=== PATIENT | male | born 1970 | race Caucasian/White ===

== ENCOUNTER 2016-07-28 15:38 | Observation (INO) | payer OTHER ==
[~2016-07-28] VITALS: Ht 167.6 cm; Wt 70.5 kg
[~2016-07-28 15:38] MED LIST: ASPI81CH2 PO; CARV25TA2 PO; CLOP1TAB5 PO; DOCU-94 PO; EZET10TA47 PO; FURO40TA3 PO; GLC5 PO; LSN20 PO; METF500T PO; NVLG; ONDA8TAB62 SL; PANT40TA PO; SERT50TA PO; SPIR25TA PO
[2016-07-28 17:20] VITALS: O2SAT 96
[2016-07-28 17:26] VITALS: BP 169/85; PULSE 88; TEMP 37; O2SAT 96; Ht 167.6 cm; Wt 70.5 kg
[2016-07-28] MEDS ORDERED: ONDANSETRON INJ 2 MG/ML 2 ML VIAL IV PRN ×2 (19:30→21:15)
[2016-07-28] MEDS ORDERED: ACETAMINOPHEN 325 MG TAB PO PRN ×2 (19:30→21:30)
[2016-07-28] MEDS ORDERED: INSUINJ5 SC (19:41)
[2016-07-28] MEDS ORDERED: URSO300C4 PO (19:41)
[2016-07-28] MEDS ORDERED: DRGTP12 EXT (19:41)
[2016-07-28] MEDS ORDERED: METO1TAB54 PO (19:41)
--- NOTE | 2016-07-28 20:33 | History and Physical ---
History & Physical Date & Time of Service: Jul 28, 2016 at 19:42 Chief Complaint: Acute On Chronic Cholecystitis Primary Care Physician: Tae Napier M.D. History of Present Illness Source: patient This is a 45 y/o male with PMHx of CAD s/p CABG, CVA on Plavix, Insulin- Dependent DM 2, HTN, Dyslipidemia and other problems as listed below is seen as a direct transfer from [facility] for intractable nausea and vomiting. Pt reports that last night he developed nausea and vomiting. He estimates he has vomited > 10 times today. He tried taking Zofran at home but could not keep it down. Sxs are assoc with lumber back pain. Pt denies any abdominal pain. Pt was seen today in the ED at [facility]. Labs reviewed were unremarkable. CT abd/pelvis + bilateral pleural effusions (stable from 07/04/16) and cholelithiasis. Pt has a history of intermittent nausea and vomiting over the past year. There is a suspected diagnosis of gastroparesis however, per records, patient refused a gastric emptying study. Patient also has symptomatic cholelithiasis. He was scheduled for cholecystectomy in the fall however the procedure was postponed due to acute CVA in April 2016. Pt has been on ASA and Plavix. He reports that his database specialist has cleared him for surgery however his pre-op neuro apt was scheduled for this . The ED tried to transfer the patient to [facility] as his database specialist and neurologist are there. There were no beds available until tomorrow therefore they opted to send patient here for admission as his paper sorter and counter, Dr. Alvarado, is here at [facility]. Pt denies fever/chills, chest pain, palpitations, SOB, wheezing, abd pain, bowel or bladder issues, LE edema ,calf pain, lightheadedness/dizziness. Past Medical/Surgical History Medical Problems: (1) CAD (coronary artery disease) Status: Chronic (2) CHF (congestive heart failure) Status: Chronic (3) CVA (cerebral vascular accident) Status: Chronic (4) Depression Status: Chronic (5) HLD (hyperlipidemia) Status: Chronic (6) HTN (hypertension) Status: Chronic (7) IDDM (insulin dependent diabetes mellitus) Status: Chronic (8) PFO (patent foramen ovale) Status: Chronic Surgical Problems: (1) Hx of CABG Status: Chronic Family History Diabetes mellitus FH: heart disease Social History Smoking Status: Never Smoker Alcohol Use: none Drug Use: none Marital Status: single Housing status: lives with family Occupational Status: unemployed Allergies Coded Allergies: Morphine (Verified Allergy, Unknown, DELIRIUM, 05/16/16) Statins (Unverified Allergy, Unknown, GI SYMPTOMS, 05/16/16) Elevated liver enzymes Home Medications Scheduled Aspirin (Aspirin), 1 TAB PO DAILY Carvedilol (Coreg), 1 TAB PO BID Clopidogrel Bisulfate (Plavix), 1 TAB PO DAILY Ezetimibe (Zetia), 1 TAB PO DAILY Fentanyl (Fentanyl), 12 MCG EXT UD Furosemide (Lasix), 1 TAB PO DAILY Glipizide (Glipizide), 5 MG PO DAILY Insulin Glulisine (Apidra), 6 UNITS SC UD Insulin Glulisine (Apidra), 5 UNITS SC UD Lisinopril (Lisinopril), 40 MG PO DAILY Metoclopramide Hcl (Reglan), 5 MG PO ACHS Pantoprazole Sodium (Protonix), 40 MG PO DAILY Sertraline (Zoloft), 1 TAB PO DAILY Spironolactone (Aldactone), 1 TAB PO DAILY Ursodiol (Actigall), 300 MG PO BID Scheduled PRN Docusate Sodium (Colace), 1 CAP PO BID PRN for Constipation Ondansetron Odt (Zofran Odt), 8 MG SL Q6H PRN for Nausea Review of Systems Constitutional: + fatigue, No chills, No fever, No sweats, No weakness Eyes: No worsening of vision ENT: No hearing loss Respiratory: No cough, No shortness of breath Cardiovascular: No chest pain, No claudication, No edema, No palpitations Abdomen: + nausea, + vomiting, No constipation, No diarrhea, No pain Musculoskeletal: + problem reported (back pain ), No calf pain, No swelling Genitourinary - Male: No dysuria Neurologic: No weakness Psychiatric: No depression symptoms Endocrine: + fatigue Hematologic / Lymphatic: No abnormal bleeding/bruising Integumentary: No new/changing skin lesions Physical Exam Vital Signs Date Time Temp Pulse Resp B/P Pulse Ox O2 Delivery O2 Flow Rate FiO2 07/28/16 17:26 37.0 88 16 169/85 96 Room Air General Appearance: WD/WN, no apparent distress, + pertinent finding (Pt is laying in bed with sister at bedside ) Head: normocephalic, atraumatic Eyes: normal inspection ENT: hearing grossly normal Neck: supple Respiratory/Chest: chest non-tender, lungs clear, normal breath sounds, no respiratory distress Cardiovascular: regular rate, rhythm, no edema, no murmur Abdomen/GI: normal bowel sounds, non tender, soft Back: normal inspection Extremities/Musculoskelatal: normal inspection, no calf tenderness, no pedal edema Neurologic/Psych: alert, normal mood/affect, oriented x 3 Skin: normal color, warm/dry Impression Assessment and Plan INTRACTABLE NAUSEA/VOMITING pt presented as a direct admit from [facility] with intractable N/V assoc with lumbar back pain -admit to med/surg -h/o multiple admissions with same complaint; ? if N/V 2* gastroparesis vs. cholelithiasis -CT abd/pelvis from [facility] + stable bilateral pleural effusions and cholelithiasis -obtain bloodwork -gentle IVF and Zofran PRN -clear liquid diet -GI consult for further recommendations -monitor CHRONIC LUMBAR BACK PAIN -currently c/o 5/10 pain -on fentanyl patch at home -start PRN analgesics in hospital INSULIN-DEPENDENT DM 2 -last A1C 8.6 -clear liquid diet -hold po antidiabetic agents -SSI coverage -BSG AC HS CHRONIC SYSTOLIC CHF -Unable to access recent echo -appears euvolemic -check CXR to r/o acute CHF -hold Lasix and Aldactone for now -Try clear liquid diet HTN -stable -cont Coreg, lisinopril -hold Lasix and Aldactone for now -monitor DYSLIPIDEMIA -cont Zetia CAD S/P CABG -stable -continue ASA, Plavix, Coreg and lisinopril -pt currently denies anginal sxs H/O CVA -cont Aspirin/Plavix -consult neuro regarding possible procedure DEPRESSION -cont Zoloft H/O PFO -per record DVT PROPHYLAXIS: -subq heparin CODE STATUS -FULL CODE DISPO -Patient seen in collaboration with Dr. Bay. Please see his addendum for further details. Thanks! Advanced Directives Existing Living Will: No Existing Power of Rack Puncher: No VTE Prophylaxis VTE Risk Assessment Done? Y/N: Yes Risk Level: Moderate Assessment/Plan IM ATTENDING : Patient seen and examined. Preceding documentation by Ms. Olga PA-C, reviewed In addition, gallbladder ultrasound showed cholelithiasis w/ sludge; negative for cholecystitis. FINAL ASSESSMENT AND PLAN as follows: 1. Recurrent nausea and vomiting, abdominal/back pain symptoms. Differentials include : DM gastroparesis biliary colic cyclic vomiting syndrome 2. troponinmia 2 to hypertensive urgency, abn kidney function 3. Chronic anemia, hemoglobin better than baseline. 4. Chronic diastolic heart failure, hx ischemic cardiomyopathy hx CAD sp CABG improved EF of 50% on last nuclear stress test 2015. 5. Hx recent cerebrovascular accident, on antiplatelet treatment. 6. DM2, insulin requiring, suboptimal control as of recent HgA1c. Observation. GMF antiemetics, analgesics. GI consult for recurrent nausea and vomiting sx (Px known to Dr. Alvarado) Monitor creatinine response to IVF, hold ACEI, diuretics until creatinine at baseline Basal insulin adjusted for n.p.o. sips state for now, ISS BG goal 140-180 DVT prophylaxis, heparin subQ. Full code.
[2016-07-28] MEDS ORDERED: TRAMADOL HCL 50 MG TAB PO PRN (21:15)
[2016-07-28] MEDS ORDERED: CARVEDILOL 25 MG TAB PO ONE (21:28)
[2016-07-28] MEDS: HYDROmorphone INJ 1 MG/ML SYR IV PRN (21:29)
[2016-07-28] MEDS ORDERED: LORAZEPAM 2 MG/ML 1 ML VIAL IV PRN (21:30)
[2016-07-28] MEDS ORDERED: DEXTROSE 50% 50 ML SYR IV PRN (21:30)
[2016-07-28] MEDS ORDERED: SODIUM CHLORIDE 0.9% 1000ML 1,000 ML IV SCH (21:30)
[2016-07-28] MEDS ORDERED: GLUCOSE 40% GEL 15 GM TUBE PO PRN (21:30)
[2016-07-28] MEDS ORDERED: GLUCAGON FOR INJ 1 MG VIAL SQ PRN (21:30)
[2016-07-28] MEDS ORDERED: GLUCOSE 10 TABS/TUBE PO PRN (21:30)
[2016-07-28] MEDS ORDERED: LORAZEPAM INJ 0.5 MG in SYRINGE 0.75 ML IV PRN (21:30)
[2016-07-28] MEDS: PROMETHAZINE HCL INJ 12.5 MG in SODIUM CHLORIDE 0.9% 50ML 50 ML IV PRN (21:44)
[2016-07-28] MEDS: HEPARIN SOD 5000 UNIT/0.5 ML CARP SQ SCH (21:51)
[2016-07-28 22:50] VITALS: BP 156/73; PULSE 91; TEMP 36.7; O2SAT 95
[2016-07-28 23:00] LABS: PARTIAL THROMBOPLASTIN RATIO 0.9
[2016-07-28] MEDS ORDERED: IV FLUIDS COMPLETED PRN (23:00)
[2016-07-28 23:07] LABS: URINE APPEARANCE CLEAR (CLEAR); URINE BILIRUBIN NEG (NEG); URINE COLOR YELLOW; URINE EPITHELIAL CELL AUTO >30 /lpf (0-5); URINE NITRITE NEG (NEG); URINE PH 5.5 (4.5-7.5); URINE SPECIFIC GRAVITY > 1.045 (1.000-1.030); UROBILINOGEN NEG (NEG); ZZUR CULT IF INDIC CLEAN CATCH NO
[2016-07-28 23:09] LABS: MANUAL MICROSCOPIC REQUIRED? NO; REVIEW REQ? YES
[2016-07-28 23:20] LABS: BUN/CREATININE RATIO 18.5 (10-20); CALCIUM 8.5 mg/dl (8.5-10.1); CREATININE 1.6 mg/dl (0.60-1.40); POTASSIUM 4.3 mmol/L (3.5-5.1)
[2016-07-28] MEDS ORDERED: NURSING DECISION MEDICATION ORDER SCH (23:30)
[2016-07-28 23:43] LABS: ALB/GLOB RATIO 0.7 (0.9-2)
[2016-07-28] MEDS ORDERED: INSULIN GLARGINE PER UNIT 5 UNITS in SYRINGE 0 ML SC ONE (23:45)
[2016-07-28] MEDS ORDERED: SODIUM CHLORIDE 0.45% 1000ML 1,000 ML IV SCH (23:45)
[2016-07-28] MEDS: INSULIN ASPART 100 UNITS/ML 3 ML PEN SC SCH (23:49)
[2016-07-29] VITALS (7 sets, daily range): BP systolic 95–193; BP diastolic 58–94; PULSE 57–83; TEMP 36.5–37.3; O2SAT 93–96
[2016-07-29] MEDS ORDERED: INSULIN GLARGINE SOLOSTAR 100 UNITS/ML 3 ML PEN SC ONE
[2016-07-29 03:34] LABS: BASO % 0.3 %; BASO ABS # 0.03 K/uL (0-0.2); COMPLETE YES; HEMATOCRIT 29.8 % (42-52); IG% 0.2 %; LYMPH % 19.7 %; MEAN CELL VOLUME 86.4 fL (80-100); MEAN CORPUSCULAR HEMOGLOBIN 27.5 pg (25-34); MEAN CORPUSCULAR HGB CONC 31.9 g/dl (32-36); MEAN PLATELET VOLUME 11.4 fL (7.4-10.4); MONO % 5.7 %; NEUT % 74.1 %; PLATELET COUNT 276 K/uL (130-400); RED BLOOD COUNT 3.45 M/uL (4.7-6.1); WHITE BLOOD COUNT 10.16 K/uL (4.8-10.8)
[2016-07-29 03:55] LABS: BUN/CREATININE RATIO 17.5 (10-20); CALCIUM 8.1 mg/dl (8.5-10.1); CREATININE 1.8 mg/dl (0.60-1.40); POTASSIUM 4.3 mmol/L (3.5-5.1)
--- NOTE | 2016-07-29 04:38 | HISTORY & PHYSICAL EXAMINATION ---
DATE OF ADMISSION: 07/28/2016 IM ATTENDING : Patient seen and examined. Preceding documentation by Ms. Olga PA-C, reviewed In addition, gallbladder ultrasound showed cholelithiasis w/ sludge; negative for cholecystitis. FINAL ASSESSMENT AND PLAN as follows: 1. Recurrent nausea and vomiting, abdominal/back pain symptoms. Differentials include : DM gastroparesis biliary colic cyclic vomiting syndrome 2. troponinmia 2 to hypertensive urgency, abn kidney function 3. Chronic anemia, hemoglobin better than baseline. 4. Chronic diastolic heart failure, hx ischemic cardiomyopathy hx CAD sp CABG improved EF of 50% on last nuclear stress test 2015. 5. Hx recent cerebrovascular accident, on antiplatelet treatment. 6. DM2, insulin requiring, suboptimal control as of recent HgA1c. Observation. GMF antiemetics, analgesics. GI consult for recurrent nausea and vomiting sx (Px known to Dr. Alvarado) Monitor creatinine response to IVF, hold ACEI, diuretics until creatinine at baseline Basal insulin adjusted for n.p.o. sips state for now, ISS BG goal 140-180 DVT prophylaxis, heparin subQ. Full code. MTDD
[2016-07-29] MEDS: SODIUM CHLORIDE 0.45% 1000ML 1,000 ML IV SCH ×2 (04:39→18:11)
[2016-07-29] MEDS: HEPARIN SOD 5000 UNIT/0.5 ML CARP SQ SCH ×3 (05:58→21:47)
[2016-07-29] MEDS: INSULIN ASPART 100 UNITS/ML 3 ML PEN SC SCH ×4 (06:00→21:00)
--- NOTE | 2016-07-29 07:17 | DIAGNOSTIC IMAGING REPORT ---
ABDOMINAL ULTRASOUND, RIGHT UPPER QUADRANT HISTORY: Generalized abdominal pain.. COMPARISON: None. FINDINGS: Pancreas: The pancreatic head and tail are obscured by overlying bowel gas. The remaining portions of the pancreas are within normal limits. Liver: The liver is echogenic consistent with fatty change. Gallbladder: The gallbladder is filled with sludge and multiple tiny gallstones. No gallbladder wall thickening. CBD: 3 mm. Right kidney: Echogenic. No hydronephrosis. IMPRESSION: The gallbladder is filled with sludge and multiple tiny stones. No gallbladder wall thickening. Electronically signed by: Vishal Roberts M.D. 07/29/2016 7:16 AM Dictated Date/Time: 07/29/2016 7:14 AM
[2016-07-29] MEDS: PROMETHAZINE HCL INJ 12.5 MG in SODIUM CHLORIDE 0.9% 50ML 50 ML IV PRN (07:20)
[2016-07-29] MEDS ORDERED: INSULIN ASPART 100 UNITS/ML 3 ML PEN SC SCH (08:00)
[2016-07-29] MEDS: HYDROmorphone INJ 1 MG/ML SYR IV PRN ×2 (08:01→12:10)
[2016-07-29] MEDS: METOCLOPRAMIDE HCL 5 MG TAB PO SCH ×4 (08:40→21:36)
[2016-07-29] MEDS ORDERED: INSULIN GLARGINE PER UNIT 5 UNITS in SYRINGE 0 ML SC SCH (09:00)
[2016-07-29] MEDS: INSULIN GLARGINE SOLOSTAR 100 UNITS/ML 3 ML PEN SC SCH ×2 (10:23→21:47)
[2016-07-29] MEDS: PANTOprazole SOD 40 MG TAB PO SCH (10:24)
[2016-07-29] MEDS: EZETIMIBE 10MG TAB PO SCH (10:27)
[2016-07-29] MEDS: CARVEDILOL 25 MG TAB PO SCH ×2 (10:27→21:36)
[2016-07-29] MEDS: URSODIOL 300 MG CAP PO SCH ×2 (10:27→21:35)
[2016-07-29] MEDS: SERTRALINE HCL 50 MG TAB PO SCH (10:27)
[2016-07-29] MEDS: CLOPIDOGREL BISULFATE 75 MG TAB PO SCH (11:24)
[2016-07-29] MEDS: ASPIRIN 81 MG ECTAB PO SCH (11:24)
--- NOTE | 2016-07-29 12:20 | Gastrointestinal Consultation ---
Gastrointestinal Consultation Date of Consultation: Jul 29, 2016 Attending Physician: Dr. Dejesus Consulting Physician: Dr. Puri Reason for Consultation: recurrent nausea and vomiting History of Present Illness Patient is a 45 year old male with longstanding hx of uncontrolled DM2, HTN, CAD s/p CABG, recent CVA 04/2016 on ASA/Plavix, HTN, hx PFO and symptomatic cholelithiasis with one year hx of nausea and vomiting requiring several hospital admissions. He follows with Dr. Alvarado and has numerous GI procedures in the past. He was to have cholecystectomy and elective EUS but this was complicated by his recent stroke. His neurologist/construction millwright are at [facility]. He was a direct transfer to this facility from [facility] due to intractable N/V. Past GI work up noted for mild gastritis, normal gastric emptying study and cholelithiasis. Neurology has been consulted this admission to consider clearance for cholecystectomy. As far as his N/V, pt states it can be 5-10 times per day, clear to brown bilious material. No hematemesis. States it is not associated with eating or drinking, can occur anytime. Denies narcotic use. Bowels regular at baseline. Using PO Zofran at home and Reglan 5mg ACHS. Pt denies abdominal pain or distention. US this admission confirms sludge and tiny gallstones, no wall thickening. Labs show slightly worsening renal function and elevated troponin thought to be secondary to hypertensive urgency/worsening renal function. Past Medical/Surgical History Past Medical History: CAD CHF CVA on ASA/Plavix Depression Hyperlipidemia DM2- insulin dependent PFO Past Surgical History: Hx CABG endoscopic procedures - refer to HPI Family History Diabetes mellitus FH: heart disease Social History Smoking Status: Never Smoker Alcohol Use: none Drug Use: none Marital Status: single Housing Status: lives with family Occupation Status: unemployed Allergies Coded Allergies: Morphine (Verified Allergy, Unknown, DELIRIUM, 05/16/16) Statins (Unverified Allergy, Unknown, GI SYMPTOMS, 05/16/16) Elevated liver enzymes Current Medications Home Meds and Scripts Medications Dose Route/Sig Max Daily Dose Days Date Category Dose Instructions Actigall (Ursodiol) 300 Mg Cap 300 Mg PO BID 07/28/16 Reported Apidra (Insulin Glulisine) 100 Unit/Ml Inj 5 Units SC UD 07/28/16 Reported Take 5 units SC before lunch Apidra (Insulin Glulisine) 100 Unit/Ml Inj 6 Units SC UD 07/28/16 Reported 6 units SC before breakfast and supper Reglan (Metoclopramide Hcl) 5 Mg Tab 5 Mg PO ACHS 07/28/16 Reported Fentanyl 12 Mcg Tdsy 12 Mcg EXT UD 07/28/16 Reported 1 patch topically q 72 hours Zofran Odt (Ondansetron HCl) 8 Mg Soltab 8 Mg SL Q6H PRN 30 05/17/16 Rx Aldactone (Spironolactone) 25 Mg Tab 1 Tab PO DAILY 90 05/16/16 Reported Zoloft (Sertraline HCl) 50 Mg Tab 1 Tab PO DAILY 30 05/16/16 Reported Protonix (Pantoprazole Sodium) 40 Mg Tab 40 Mg PO DAILY 05/16/16 Reported Lisinopril 20 Mg Tab 40 Mg PO DAILY 05/16/16 Reported Glipizide 5 Mg Tab 5 Mg PO DAILY 05/16/16 Reported Lasix (Furosemide) 40 Mg Tab 1 Tab PO DAILY 90 05/16/16 Reported Zetia (Ezetimibe) 10 Mg Tab 1 Tab PO DAILY 30 05/16/16 Reported Colace (Docusate Sodium) 100 Mg Cap 1 Cap PO BID PRN 15 05/16/16 Reported Plavix (Clopidogrel Bisulfate) 75 Mg Tab 1 Tab PO DAILY 05/16/16 Reported Coreg (Carvedilol) 25 Mg Tab 1 Tab PO BID 90 05/16/16 Reported Aspirin 81 Mg Chw 1 Tab PO DAILY 30 05/16/16 Reported Review of Systems Constitutional: No chills, No fever Eyes: No problem reported ENT: No problem reported Respiratory: No cough, No shortness of breath Cardiac: No chest pain, No edema Abdomen: + nausea, + vomiting, No GI bleeding, No jaundice (see HPI), No pain Musculoskeletal: + joint pain (chronic back pain) Male : No dysuria Neuro: + see HPI (recent CVA per HPI ) Psych: + depression symptoms (hx of depression, controlled on meds) Heme: No abnormal bleeding/bruising Endo: No problem reported Skin: No problem reported Physical Exam Date Time Temp Pulse Resp B/P Pulse Ox O2 Delivery O2 Flow Rate FiO2 07/29/16 10:26 76 176/94 07/29/16 08:22 83 156/74 07/29/16 07:47 37.3 83 18 193/83 93 Room Air 07/29/16 07:15 Room Air 07/28/16 23:59 Room Air 07/28/16 22:50 36.7 91 16 156/73 95 Room Air 07/28/16 17:26 37.0 88 16 169/85 96 Room Air 07/28/16 17:20 96 Room Air General Appearance: WD/WN (appears uncomfortable due to nausea, no pain, NAD) Eyes: normal inspection ENT: hearing grossly normal Neck: supple Respiratory/Chest: lungs clear, normal breath sounds, no respiratory distress Cardiovascular: regular rate, rhythm, no edema Abdomen: normal bowel sounds, non tender, soft (nondistended) Extremities: non-tender, no pedal edema Neurologic/Psych: alert, oriented x 3 Skin: normal color Laboratory Results Last 24 Hours Test 07/28/16 22:44 07/28/16 22:55 07/28/16 23:42 07/29/16 03:05 Activated Partial Thromboplast Time 24.5 SECONDS Partial Thromboplastin Ratio 0.9 Sodium Level 145 mmol/L 146 mmol/L Potassium Level 4.3 mmol/L 4.3 mmol/L Chloride Level 110 mmol/L 111 mmol/L Carbon Dioxide Level 24 mmol/L 27 mmol/L Anion Gap 11.0 mmol/L 8.0 mmol/L Blood Urea Nitrogen 30 mg/dl 32 mg/dl Creatinine 1.60 mg/dl 1.80 mg/dl Est Creatinine Clear Calc Drug Dose 52.6 ml/min 46.7 ml/min Estimated GFR () 59.4 51.5 Estimated GFR (Non- 51.3 44.5 BUN/Creatinine Ratio 18.5 17.5 Random Glucose 180 mg/dl 157 mg/dl Calcium Level 8.5 mg/dl 8.1 mg/dl Magnesium Level 2.0 mg/dl Total Bilirubin 0.3 mg/dl Aspartate Amino Transf (AST/SGOT) 26 U/L Alanine Aminotransferase (ALT/SGPT) 20 U/L Alkaline Phosphatase 79 U/L Troponin I 0.167 ng/ml 0.259 ng/ml Total Protein 6.0 gm/dl Albumin 2.5 gm/dl Globulin 3.5 gm/dl Albumin/Globulin Ratio 0.7 Thyroid Stimulating Hormone (TSH) 2.000 uIu/ml Urine Color YELLOW Urine Appearance CLEAR Urine pH 5.5 Urine Specific [place] > 1.045 Urine Protein 4+ Urine Glucose (UA) 2+ Urine Ketones TRACE Urine Occult Blood 2+ Urine Nitrite NEG Urine Bilirubin NEG Urine Urobilinogen NEG Urine Leukocyte Esterase NEG Urine WBC (Auto) 1-5 /hpf Urine RBC (Auto) 10-30 /hpf Urine Hyaline Casts (Auto) 5-10 /lpf Urine Epithelial Cells (Auto) >30 /lpf Urine Bacteria (Auto) NEG Urine Renal Epithelial Cells 0-5 /lpf Urine Pathogenic Casts /lpf Bedside Glucose 165 mg/dl White Blood Count 10.16 K/uL Red Blood Count 3.45 M/uL Hemoglobin 9.5 g/dL Hematocrit 29.8 % Mean Corpuscular Volume 86.4 fL Mean Corpuscular Hemoglobin 27.5 pg Mean Corpuscular Hemoglobin Concent 31.9 g/dl Platelet Count 276 K/uL Mean Platelet Volume 11.4 fL Neutrophils (%) (Auto) 74.1 % Lymphocytes (%) (Auto) 19.7 % Monocytes (%) (Auto) 5.7 % Eosinophils (%) (Auto) 0.0 % Basophils (%) (Auto) 0.3 % Neutrophils # (Auto) 7.53 K/uL Lymphocytes # (Auto) 2.00 K/uL Monocytes # (Auto) 0.58 K/uL Eosinophils # (Auto) 0.00 K/uL Basophils # (Auto) 0.03 K/uL RDW Standard Deviation 46.9 fL RDW Coefficient of Variation 14.8 % Immature Granulocyte % (Auto) 0.2 % Immature Granulocyte # (Auto) 0.02 K/uL Test 07/29/16 05:58 07/29/16 07:55 Bedside Glucose 155 mg/dl Sodium Level 144 mmol/L Troponin I 0.271 ng/ml Impression Patient is a 45 year old male with complex medical hx detailed above most recently noted for CVA with one yr hx of N/V and symptomatic cholelithiasis Plan Unfortunately he is just now almost 3 months from his CVA. Neurology has been consulted to consider clearance for cholecystectomy Recurrent N/V - likely component of gastroparesis despite normal GES in past; Cholelithiasis could also be contributing. No etiology noted on last EGD. Would not repeat his gastric emptying study as he remains on reglan. GI recommendations: continue Reglan 5mg ACHS continue Zofran, has IV ordered here Continue PPI Unfortunately not alot to offer. Once pt is cleared from cardiac and neuro standpoint, his plans are for cholecystectomy. If this does not resolve his issues, Dr. Alvarado has suggested elective EUS previously. ATTESTATION: I have performed a history and physical examination of this patient and reviewed the electronic record. Specifically, on physical examination patient appears comfortable without abdominal tenderness. He appears to have poorly controlled diabetic gastroparesis. I have discussed the case with Trudy Dimas PA-C. The above note reflects my findings, conclusions, and recommendations. Victorino Puri MD
[2016-07-29] MEDS: ONDANSETRON INJ 2 MG/ML 2 ML VIAL IV PRN (12:23)
[2016-07-29] MEDS ORDERED: NURSING VERBAL MED ORDER ONE (15:00)
--- NOTE | 2016-07-29 15:03 | Progress Note ---
Medicine Progress Note Date & Time of Visit: Jul 29, 2016 at 14:40. Subjective Pt was seen and examined sitting in bed with no distress Pt said that he was transfer to [facility] to get neuro clearance for cholecystectomy pt said that his abdominal pain and vomiting improved he is complaint of back pain denies any chest pain, palpitation, dizziness and SOB Objective Last 8 Hrs Date Time Temp Pulse Resp B/P Pulse Ox O2 Delivery O2 Flow Rate FiO2 07/29/16 12:25 36.7 73 18 158/81 96 Room Air 07/29/16 10:26 76 176/94 07/29/16 08:22 83 156/74 07/29/16 07:47 37.3 83 18 193/83 93 Room Air 07/29/16 07:15 Room Air Physical Exam: General- No acute distress Head- atraumatic Eyes- PERRL, EOMI ENT- oropharynx clear Neck- supple, no JVD Lungs- clear to auscultation and percussion Heart- regular rhythm Abdomen- normal bowel sounds, soft Extremities- no calf tenderness Neuro- alert, oriented x 3; PERRL, EOMI; no facial palsy; no dysarthria Skin- warm & dry Laboratory Results: Last 24 Hours Test 07/28/16 22:44 07/28/16 22:55 07/28/16 23:42 07/29/16 03:05 Activated Partial Thromboplast Time 24.5 SECONDS Partial Thromboplastin Ratio 0.9 Sodium Level 145 mmol/L 146 mmol/L Potassium Level 4.3 mmol/L 4.3 mmol/L Chloride Level 110 mmol/L 111 mmol/L Carbon Dioxide Level 24 mmol/L 27 mmol/L Anion Gap 11.0 mmol/L 8.0 mmol/L Blood Urea Nitrogen 30 mg/dl 32 mg/dl Creatinine 1.60 mg/dl 1.80 mg/dl Est Creatinine Clear Calc Drug Dose 52.6 ml/min 46.7 ml/min Estimated GFR () 59.4 51.5 Estimated GFR (Non- 51.3 44.5 BUN/Creatinine Ratio 18.5 17.5 Random Glucose 180 mg/dl 157 mg/dl Calcium Level 8.5 mg/dl 8.1 mg/dl Magnesium Level 2.0 mg/dl Total Bilirubin 0.3 mg/dl Aspartate Amino Transf (AST/SGOT) 26 U/L Alanine Aminotransferase (ALT/SGPT) 20 U/L Alkaline Phosphatase 79 U/L Troponin I 0.167 ng/ml 0.259 ng/ml Total Protein 6.0 gm/dl Albumin 2.5 gm/dl Globulin 3.5 gm/dl Albumin/Globulin Ratio 0.7 Thyroid Stimulating Hormone (TSH) 2.000 uIu/ml Urine Color YELLOW Urine Appearance CLEAR Urine pH 5.5 Urine Specific [place] > 1.045 Urine Protein 4+ Urine Glucose (UA) 2+ Urine Ketones TRACE Urine Occult Blood 2+ Urine Nitrite NEG Urine Bilirubin NEG Urine Urobilinogen NEG Urine Leukocyte Esterase NEG Urine WBC (Auto) 1-5 /hpf Urine RBC (Auto) 10-30 /hpf Urine Hyaline Casts (Auto) 5-10 /lpf Urine Epithelial Cells (Auto) >30 /lpf Urine Bacteria (Auto) NEG Urine Renal Epithelial Cells 0-5 /lpf Urine Pathogenic Casts /lpf Bedside Glucose 165 mg/dl White Blood Count 10.16 K/uL Red Blood Count 3.45 M/uL Hemoglobin 9.5 g/dL Hematocrit 29.8 % Mean Corpuscular Volume 86.4 fL Mean Corpuscular Hemoglobin 27.5 pg Mean Corpuscular Hemoglobin Concent 31.9 g/dl Platelet Count 276 K/uL Mean Platelet Volume 11.4 fL Neutrophils (%) (Auto) 74.1 % Lymphocytes (%) (Auto) 19.7 % Monocytes (%) (Auto) 5.7 % Eosinophils (%) (Auto) 0.0 % Basophils (%) (Auto) 0.3 % Neutrophils # (Auto) 7.53 K/uL Lymphocytes # (Auto) 2.00 K/uL Monocytes # (Auto) 0.58 K/uL Eosinophils # (Auto) 0.00 K/uL Basophils # (Auto) 0.03 K/uL RDW Standard Deviation 46.9 fL RDW Coefficient of Variation 14.8 % Immature Granulocyte % (Auto) 0.2 % Immature Granulocyte # (Auto) 0.02 K/uL Test 07/29/16 05:58 07/29/16 07:55 07/29/16 12:04 07/29/16 13:30 Bedside Glucose 155 mg/dl 177 mg/dl Sodium Level 144 mmol/L Troponin I 0.271 ng/ml Creatine Kinase MB Ratio Test 07/29/16 13:40 Assessment & Plan INTRACTABLE NAUSEA/VOMITING Multiple admission for n/v and abdominal plain Possible related to gastroparesis vs cholelithiasis CT abd/pelvis from [facility] Mg + stable bilateral pleural effusions and cholelithiasis U/S of the gallbladder showed the gallbladder is filled with sludge and multiple tiny stones. No gallbladder wall thickening. Case discussed with Trudy WILLIS that suggested to continue current management with Phenergan and Zofran Neuro consult placed for clearance for cholecystectomy since pt has a recent CVA on 04/30. clear liquid diet Continue monitor pt CHRONIC LUMBAR BACK PAIN -currently c/o 5/10 pain -on fentanyl patch at home on dilaudid prn for pain INSULIN-DEPENDENT DM 2 last A1C 8.6 hold glipizide SSI coverage Continue monitor BS CHRONIC SYSTOLIC CHF Compensated well hold Lasix and Aldactone ACUTE ON CHRONIC KIDNEY DISEASE STAGE 3 Creatine on admission 1.6 worsening today to 1.8 Continue Gentle IVF Continue holding lisinopril, lasix and aldactone Avoid nephrotoxic agents continue monitor BMP ELEVATED TROPONIN Possible related to acute on chronic CKD Denies any chest pain EKG showed no significant ST changes repeat EKG HTN BP elevated Continue holding lasix, lisinopril and aldactone will add hydralazine prn Continue monitor BP DYSLIPIDEMIA -cont Zetia CAD S/P CABG -stable -continue ASA, Plavix, Coreg and lisinopril -pt currently denies anginal sxs H/O CVA -cont Aspirin/Plavix Neurology consulted for surgical clearance DEPRESSION -cont Zoloft H/O PFO -per record DVT PROPHYLAXIS: -subq heparin CODE STATUS FULL CODE Consultants: Gastro Neuro Current Inpatient Medications: Current Inpatient Medications Medications (Trade) Dose Ordered Sig/Mer Route Start Time Stop Time Status Last Admin Dose Admin Heparin Sodium (Porcine) (Heparin Sq 5000 Unit/0.5ml) 5,000 unit Q8H SQ 07/28/16 22:00 08/27/16 21:59 07/29/16 13:38 5,000 UNIT Hydromorphone HCl 0.5 mg 0.5 mg Q3H PRN IV 07/28/16 21:15 08/11/16 21:14 07/29/16 12:10 0.5 MG Promethazine HCl/ Sodium Chloride (Phenergan Inj/ Nss 50ml) 50.5 ml @ 204 mls/hr Q6H PRN IV 07/28/16 21:15 08/27/16 21:14 07/29/16 07:20 204 MLS/HR Tramadol HCl (Ultram Tab) not relieved by tylenol @ Q6H PRN PO 07/28/16 21:15 08/27/16 21:14 Acetaminophen (Tylenol Tab) 650 mg Q4H PRN PO 07/28/16 21:30 08/27/16 21:29 Glucose (Glucose 40% Gel) 15-30 GRAMS 15 GRAMS... UD PRN PO 07/28/16 21:30 08/27/16 21:29 Glucose (Glucose Chew Tab) 4-8 Tablets 4 Tabl... UD PRN PO 07/28/16 21:30 08/27/16 21:29 Dextrose (Dextrose 50% 50ML Syringe) 25-50ML OF 50% DW IV FOR... UD PRN IV 07/28/16 21:30 08/27/16 21:29 Glucagon 1 mg 1 mg UD PRN SQ 07/28/16 21:30 08/27/16 21:29 Lorazepam/Syringe (Ativan Inj/ Syringe) 1 ml @ 1 mls/min Q4H PRN IV 07/28/16 21:30 08/27/16 21:29 Aspirin (Ecotrin Tab) 81 mg QAM PO 07/29/16 09:00 08/28/16 08:59 07/29/16 11:24 81 MG Carvedilol (Coreg Tab) 25 mg BID PO 07/29/16 09:00 08/28/16 08:59 07/29/16 10:27 25 MG Clopidogrel Bisulfate (plAVix TAB) 75 mg DAILY PO 07/29/16 09:00 08/28/16 08:59 07/29/16 11:24 75 MG EZETIMIBE (Zetia Tab) 10 mg DAILY PO 07/29/16 09:00 08/28/16 08:59 07/29/16 10:27 10 MG Metoclopramide HCl (Reglan Tab) 5 mg ACHS PO 07/29/16 08:00 08/28/16 07:59 07/29/16 11:25 5 MG Pantoprazole Sodium (Protonix Tab) 40 mg DAILY PO 07/29/16 09:00 08/28/16 08:59 Sertraline HCl (Zoloft Tab) 50 mg DAILY PO 07/29/16 09:00 08/28/16 08:59 07/29/16 10:27 50 MG Ursodiol (Actigall Cap) 300 mg BID PO 07/29/16 09:00 08/28/16 08:59 07/29/16 10:27 300 MG Miscellaneous (Iv Fluids Completed) 1 ea PRN PRN N/A 07/28/16 23:00 07/28/17 22:59 Insulin Aspart (novoLOG ASPART) SLIDING SCALE If C... Q6 SC 07/29/16 00:00 08/28/16 00:00 Insulin Glargine 5 unit 5 unit BID SC 07/29/16 09:00 08/28/16 08:59 Sodium Chloride (1/2 Nss 1000ml) 1,000 ml @ 60 mls/hr [id number] IV 07/29/16 04:15 08/28/16 04:14 07/29/16 04:39 60 MLS/HR Ondansetron HCl (Zofran Inj) 4 mg Q4H PRN IV 07/29/16 13:15 08/28/16 13:14 07/29/16 12:23 4 MG
--- NOTE | 2016-07-29 15:22 | Neurology Consultation ---
Neurology Consultation Date of Consultation: Jul 29, 2016. Attending Physician: Terrance Mcrae M.D. Primary Care Physician: Tae Napier M.D. Reason for Consultation: clearance for surgery 3 months post stroke History of Present Illness Source: patient, family Tom is a 45 y/o male with PMH of CAD s/p CABG, CVA on Plavix, Insulin- Dependent DM 2, HTN, Dyslipidemia. He is a direct transfer from [facility] for intractable nausea and vomiting. He estimates he has vomited >10 times yesterday. He tried taking Zofran at home but could not keep it down. When he vomits he has back pain and abdominal pain. He has a history of intermittent nausea and vomiting over the past year. There is a suspected diagnosis of gastroparesis and refused a gastric emptying study He also has symptomatic cholelithiasis. He was scheduled for cholecystectomy in the fall however the procedure was postponed due to acute CVA in April 2016. After the stroke he was started on plavix. He reports that his solution designer has cleared him for surgery. He was schedule to see a neurologist in [place] but never went to the appointment. His Aunt is in the room an states she thinks he has had several strokes. They tried to transfer the patient to [place] but no beds were available. He states the only residual he has from the stroke is clumsy with right hand an balance issues. denies CP, SOB, abdominal pain, one sided weakness, numbness tingling, current N, V, falls. Social History Alcohol Use: none Drug Use: none Marital Status: single Housing Status: lives with family Occupation Status: unemployed Allergies Coded Allergies: Morphine (Verified Allergy, Unknown, DELIRIUM, 05/16/16) Statins (Unverified Allergy, Unknown, GI SYMPTOMS, 05/16/16) Elevated liver enzymes Current Inpatient Medications Current Inpatient Medications Medications (Trade) Dose Ordered Sig/Mer Route Start Time Stop Time Status Last Admin Dose Admin Heparin Sodium (Porcine) (Heparin Sq 5000 Unit/0.5ml) 5,000 unit Q8H SQ 07/28/16 22:00 08/27/16 21:59 07/29/16 13:38 5,000 UNIT Hydromorphone HCl 0.5 mg 0.5 mg Q3H PRN IV 07/28/16 21:15 08/11/16 21:14 07/29/16 12:10 0.5 MG Promethazine HCl/ Sodium Chloride (Phenergan Inj/ Nss 50ml) 50.5 ml @ 204 mls/hr Q6H PRN IV 07/28/16 21:15 08/27/16 21:14 07/29/16 07:20 204 MLS/HR Tramadol HCl (Ultram Tab) not relieved by tylenol @ Q6H PRN PO 07/28/16 21:15 08/27/16 21:14 Acetaminophen (Tylenol Tab) 650 mg Q4H PRN PO 07/28/16 21:30 08/27/16 21:29 Glucose (Glucose 40% Gel) 15-30 GRAMS 15 GRAMS... UD PRN PO 07/28/16 21:30 08/27/16 21:29 Glucose (Glucose Chew Tab) 4-8 Tablets 4 Tabl... UD PRN PO 07/28/16 21:30 08/27/16 21:29 Dextrose (Dextrose 50% 50ML Syringe) 25-50ML OF 50% DW IV FOR... UD PRN IV 07/28/16 21:30 08/27/16 21:29 Glucagon 1 mg 1 mg UD PRN SQ 07/28/16 21:30 08/27/16 21:29 Lorazepam/Syringe (Ativan Inj/ Syringe) 1 ml @ 1 mls/min Q4H PRN IV 07/28/16 21:30 08/27/16 21:29 Aspirin (Ecotrin Tab) 81 mg QAM PO 07/29/16 09:00 08/28/16 08:59 07/29/16 11:24 81 MG Carvedilol (Coreg Tab) 25 mg BID PO 07/29/16 09:00 08/28/16 08:59 07/29/16 10:27 25 MG Clopidogrel Bisulfate (plAVix TAB) 75 mg DAILY PO 07/29/16 09:00 08/28/16 08:59 07/29/16 11:24 75 MG EZETIMIBE (Zetia Tab) 10 mg DAILY PO 07/29/16 09:00 08/28/16 08:59 07/29/16 10:27 10 MG Metoclopramide HCl (Reglan Tab) 5 mg ACHS PO 07/29/16 08:00 08/28/16 07:59 07/29/16 11:25 5 MG Pantoprazole Sodium (Protonix Tab) 40 mg DAILY PO 07/29/16 09:00 08/28/16 08:59 Sertraline HCl (Zoloft Tab) 50 mg DAILY PO 07/29/16 09:00 08/28/16 08:59 07/29/16 10:27 50 MG Ursodiol (Actigall Cap) 300 mg BID PO 07/29/16 09:00 08/28/16 08:59 07/29/16 10:27 300 MG Miscellaneous (Iv Fluids Completed) 1 ea PRN PRN N/A 07/28/16 23:00 07/28/17 22:59 Insulin Aspart (novoLOG ASPART) SLIDING SCALE If C... Q6 SC 07/29/16 00:00 08/28/16 00:00 Insulin Glargine 5 unit 5 unit BID SC 07/29/16 09:00 08/28/16 08:59 Sodium Chloride (1/2 Nss 1000ml) 1,000 ml @ 60 mls/hr [id number] IV 07/29/16 04:15 08/28/16 04:14 07/29/16 04:39 60 MLS/HR Ondansetron HCl (Zofran Inj) 4 mg Q4H PRN IV 07/29/16 13:15 08/28/16 13:14 07/29/16 12:23 4 MG Miscellaneous Information (Nursing Verbal Med Order) 1 ea ONE ONCE N/A 07/29/16 15:00 07/29/16 15:01 UNV Physical Exam Vital Signs (Past 24 Hrs): Date Time Temp Pulse Resp B/P Pulse Ox O2 Delivery O2 Flow Rate FiO2 07/29/16 12:25 36.7 73 18 158/81 96 Room Air 07/29/16 10:26 76 176/94 07/29/16 08:22 83 156/74 07/29/16 07:47 37.3 83 18 193/83 93 Room Air 07/29/16 07:15 Room Air 07/28/16 23:59 Room Air 07/28/16 22:50 36.7 91 16 156/73 95 Room Air 07/28/16 17:26 37.0 88 16 169/85 96 Room Air 07/28/16 17:20 96 Room Air Physical Exam: Constitutional: appearance nourished, healthy and normal Ears, Nose, Mouth and Throat: mucous membranes moist, no injection and skin normal, eyes normal Cardiovascular: normal S-1 and S-2 and regular rate and rhythm Respiratory: clear to auscultation (CTA) and no rales, rhonchi or wheeze Musculoskeletal: no peripheral edema and good distal pulses Skin: no stigmata of neurocutaneous disease noted and normal and intact Eyes: extraocular muscles intact (EOMI) and pupils equal, round and reactive to light (PERRL) miotic NEUROLOGIC EXAMINATION: Mental status: Alert and interactive Oriented to full date and location Oriented to person Speech fluent with no evidence of aphasia Cranial Nerves smile eye brow raise symmetric, tongue midline Reflexes: Deep tendon reflexes were symmetrical and graded 2/5. Plantar responses were flexor on left right neutral Sensory: no deficit to cool vibration GT proprioception in tact Coordination: Romberg present falls to right with eye closed Gait/Stance: siting beside, tandem gait Motor: Negative for pronator drift of out stretched arms with eyes closed. Strength: biceps triceps deltoids bilaterally 5/5, hip flex ext patellar flex ext bilaterally 5/5, plantar flex ext 5/5 Laboratory Results Past 24 Hours: 07/29/16 03:05 Red Blood Count 3.45, Mean Corpuscular Volume 86.4, Mean Corpuscular Hemoglobin 27.5, Mean Corpuscular Hemoglobin Concent 31.9, Mean Platelet Volume 11.4, Neutrophils (%) (Auto) 74.1, Lymphocytes (%) (Auto) 19.7, Monocytes (%) (Auto) 5.7, Eosinophils (%) (Auto) 0.0, Basophils (%) (Auto) 0.3, Neutrophils # (Auto) 7.53, Lymphocytes # (Auto) 2.00, Monocytes # (Auto) 0.58, Eosinophils # (Auto) 0.00, Basophils # (Auto) 0.03 07/29/16 03:05 07/29/16 07:55 Test 07/28/16 22:44 07/28/16 22:55 07/29/16 03:05 07/29/16 12:04 Activated Partial Thromboplast Time 24.5 SECONDS (21.0-31.0) Partial Thromboplastin Ratio 0.9 Magnesium Level 2.0 mg/dl (1.8-2.4) Total Bilirubin 0.3 mg/dl (0.2-1) Aspartate Amino Transf (AST/SGOT) 26 U/L (15-37) Alanine Aminotransferase (ALT/SGPT) 20 U/L (12-78) Alkaline Phosphatase 79 U/L (45-117) Total Protein 6.0 gm/dl (6.4-8.2) Albumin 2.5 gm/dl (3.4-5.0) Globulin 3.5 gm/dl (2.5-4.0) Albumin/Globulin Ratio 0.7 (0.9-2) Thyroid Stimulating Hormone (TSH) 2.000 uIu/ml (0.300-4.500) Urine Color YELLOW Urine Appearance CLEAR (CLEAR) Urine pH 5.5 (4.5-7.5) Urine Specific [place] > 1.045 (1.000-1.030) Urine Protein 4+ (NEG) Urine Glucose (UA) 2+ (NEG) Urine Ketones TRACE (NEG) Urine Occult Blood 2+ (NEG) Urine Nitrite NEG (NEG) Urine Bilirubin NEG (NEG) Urine Urobilinogen NEG (NEG) Urine Leukocyte Esterase NEG (NEG) Urine WBC (Auto) 1-5 /hpf (0-5) Urine RBC (Auto) 10-30 /hpf (0-4) Urine Hyaline Casts (Auto) 5-10 /lpf (0-5) Urine Epithelial Cells (Auto) >30 /lpf (0-5) Urine Bacteria (Auto) NEG (NEG) Urine Renal Epithelial Cells 0-5 /lpf (0-5) Urine Pathogenic Casts /lpf (0) White Blood Count 10.16 K/uL (4.8-10.8) Red Blood Count 3.45 M/uL (4.7-6.1) Hemoglobin 9.5 g/dL (14.0-18.0) Hematocrit 29.8 % (42-52) Mean Corpuscular Volume 86.4 fL (80-100) Mean Corpuscular Hemoglobin 27.5 pg (25-34) Mean Corpuscular Hemoglobin Concent 31.9 g/dl (32-36) Platelet Count 276 K/uL (130-400) Mean Platelet Volume 11.4 fL (7.4-10.4) Neutrophils (%) (Auto) 74.1 % Lymphocytes (%) (Auto) 19.7 % Monocytes (%) (Auto) 5.7 % Eosinophils (%) (Auto) 0.0 % Basophils (%) (Auto) 0.3 % Neutrophils # (Auto) 7.53 K/uL (1.4-6.5) Lymphocytes # (Auto) 2.00 K/uL (1.2-3.4) Monocytes # (Auto) 0.58 K/uL (0.11-0.59) Eosinophils # (Auto) 0.00 K/uL (0-0.5) Basophils # (Auto) 0.03 K/uL (0-0.2) RDW Standard Deviation 46.9 fL (36.4-46.3) RDW Coefficient of Variation 14.8 % (11.5-14.5) Immature Granulocyte % (Auto) 0.2 % Immature Granulocyte # (Auto) 0.02 K/uL (0.00-0.02) Anion Gap 8.0 mmol/L (3-11) Est Creatinine Clear Calc Drug Dose 46.7 ml/min Estimated GFR () 51.5 Estimated GFR (Non- 44.5 BUN/Creatinine Ratio 17.5 (10-20) Calcium Level 8.1 mg/dl (8.5-10.1) Bedside Glucose 177 mg/dl (70-99) Test 07/29/16 13:30 07/29/16 13:40 Creatine Kinase MB Ratio (0-3.0) Creatine Kinase MB 7.8 ng/ml (0.5-3.6) Troponin I 0.230 ng/ml (0-0.045) Imaging abdominal US The gallbladder is filled with sludge and multiple tiny stones. No gallbladder wall thickening. Impression 45 year old male with PMH stroke in April with intermitted nausea, vomiting Plan 1. record of strokes requested from [facility] 2. risk of recurrent stroke after odds ratio for adverse event of surgery after stroke 0-3 months 14. 2 3-6 months 4.8 6-12 months 2.5 levels off after 9 months This was discussed with patient and aunt. they voice understanding. of course if this emergent and the risk of waiting to do the procedure is greater than the risk of stroke the procedure would take precedence but if the is elective the risk of stroke would need to be considered. 3. will have further recommendations once information is obtained from [facility] 4. continue plavix 75 mg and aspirin 81 mg at this point unless emergent surgery is needed. I have seen and discussed above patient with Dr Ileana Crane, neurology Pt seen and examined. Records not currently available. Exam notable for no field cut or aphasia, no facial asymmetry or dysarthria, mild R hemiparesis mostly arm with decreased R WILLOW and clumsy on right. Clinically I suspect that the pt most recent stroke was small vessel. It does not seem that the pt was told he had carotid stenosis. Risk for elective surgery highest in the first 3 months post-stroke, less over 6 months. If there is high grade carotid stenosis , that would need to be addressed prior to surgery. Will review recs and advise. When surgery performed would minimize time pt needed to be off antiplatelet tx. Will follow with you, MARIJA rCane MD
[2016-07-29] MEDS ORDERED: HydrALAZINE HCL 20 MG/ML VIAL IV. PRN (15:45)
[2016-07-30] VITALS (10 sets, daily range): BP systolic 135–207; BP diastolic 77–105; PULSE 58–82; TEMP 36.4–37; O2SAT 97–99
[2016-07-30] MEDS: HEPARIN SOD 5000 UNIT/0.5 ML CARP SQ SCH ×3 (06:07→21:45)
[2016-07-30 07:16] LABS: BASO % 0.9 %; BASO ABS # 0.09 K/uL (0-0.2); COMPLETE YES; EOS % 1.5 %; HEMATOCRIT 32.4 % (42-52); IG% 0.2 %; LYMPH % 39.3 %; LYMPH ABS # 3.73 K/uL (1.2-3.4); MEAN CORPUSCULAR HEMOGLOBIN 27.8 pg (25-34); MEAN CORPUSCULAR HGB CONC 32.7 g/dl (32-36); MEAN PLATELET VOLUME 11.1 fL (7.4-10.4); NEUT % 50.1 %; PLATELET COUNT 318 K/uL (130-400); RED BLOOD COUNT 3.81 M/uL (4.7-6.1)
[2016-07-30] MEDS: HYDROmorphone INJ 1 MG/ML SYR IV PRN (07:36)
[2016-07-30] MEDS: ONDANSETRON INJ 2 MG/ML 2 ML VIAL IV PRN (07:36)
[2016-07-30 07:45] LABS: BUN/CREATININE RATIO 15.5 (10-20); CREATININE 2.4 mg/dl (0.60-1.40)
[2016-07-30] MEDS: METOCLOPRAMIDE HCL 5 MG TAB PO SCH ×4 (09:16→21:06)
[2016-07-30] MEDS: SERTRALINE HCL 50 MG TAB PO SCH (09:16)
[2016-07-30] MEDS: EZETIMIBE 10MG TAB PO SCH (09:16)
[2016-07-30] MEDS: PANTOprazole SOD 40 MG TAB PO SCH (09:16)
[2016-07-30] MEDS: CLOPIDOGREL BISULFATE 75 MG TAB PO SCH (09:16)
[2016-07-30] MEDS: ASPIRIN 81 MG ECTAB PO SCH (09:16)
[2016-07-30] MEDS: CARVEDILOL 25 MG TAB PO SCH ×2 (09:17→21:06)
[2016-07-30] MEDS: URSODIOL 300 MG CAP PO SCH ×2 (09:17→21:06)
[2016-07-30] MEDS: INSULIN ASPART 100 UNITS/ML 3 ML PEN SC SCH ×4 (09:22→21:15)
[2016-07-30] MEDS: INSULIN GLARGINE SOLOSTAR 100 UNITS/ML 3 ML PEN SC SCH ×2 (09:23→21:14)
[2016-07-30] MEDS: SODIUM CHLORIDE 0.45% 1000ML 1,000 ML IV SCH ×2 (11:06→23:20)
--- NOTE | 2016-07-30 12:15 | Gastroenterology Progress Note ---
Progress Note Date of Service: Jul 30, 2016 Subjective Pt evaluation today including: conversation w/ patient, physical exam, chart review, lab review, review of studies 45yo being followed for recurrent N/V thought to have a component of gastroparesis as well as symptomatic cholelithiasis. Pt with PFO, recent CVA within the last 3 months. Neuro has been consulted for clearance to consider cholecystectomy and has requested [facility] records for review. Pt looking and feeling much better this morning. Notes some AM nausea but no other c/o. Pt aware of increased risk of surgery within the first 3 months of CVA. Denies new GI c/o today. Review of Systems Constitutional: No chills, No fever Eyes: No problem reported ENT: No problem reported Respiratory: No cough Cardiac: No chest pain Abdomen: + see HPI Musculoskeletal: + joint pain (chronic back pain) Male : No problem reported Neuro: + see HPI Psych: No problem reported Skin: No rash Medications Current Inpatient Medications Medications (Trade) Dose Ordered Sig/Mer Route Start Time Stop Time Status Last Admin Dose Admin Heparin Sodium (Porcine) (Heparin Sq 5000 Unit/0.5ml) 5,000 unit Q8H SQ 07/28/16 22:00 08/27/16 21:59 07/30/16 06:07 5,000 UNIT Hydromorphone HCl 0.5 mg 0.5 mg Q3H PRN IV 07/28/16 21:15 08/11/16 21:14 07/30/16 07:36 0.5 MG Promethazine HCl/ Sodium Chloride (Phenergan Inj/ Nss 50ml) 50.5 ml @ 204 mls/hr Q6H PRN IV 07/28/16 21:15 08/27/16 21:14 07/29/16 07:20 204 MLS/HR Tramadol HCl (Ultram Tab) not relieved by tylenol @ Q6H PRN PO 07/28/16 21:15 08/27/16 21:14 07/30/16 06:23 50 MG Acetaminophen (Tylenol Tab) 650 mg Q4H PRN PO 07/28/16 21:30 08/27/16 21:29 Glucose (Glucose 40% Gel) 15-30 GRAMS 15 GRAMS... UD PRN PO 07/28/16 21:30 08/27/16 21:29 Glucose (Glucose Chew Tab) 4-8 Tablets 4 Tabl... UD PRN PO 07/28/16 21:30 08/27/16 21:29 Dextrose (Dextrose 50% 50ML Syringe) 25-50ML OF 50% DW IV FOR... UD PRN IV 07/28/16 21:30 08/27/16 21:29 Glucagon 1 mg 1 mg UD PRN SQ 07/28/16 21:30 08/27/16 21:29 Lorazepam/Syringe (Ativan Inj/ Syringe) 1 ml @ 1 mls/min Q4H PRN IV 07/28/16 21:30 08/27/16 21:29 Aspirin (Ecotrin Tab) 81 mg QAM PO 07/29/16 09:00 08/28/16 08:59 07/30/16 09:16 81 MG Carvedilol (Coreg Tab) 25 mg BID PO 07/29/16 09:00 08/28/16 08:59 07/30/16 09:17 25 MG Clopidogrel Bisulfate (plAVix TAB) 75 mg DAILY PO 07/29/16 09:00 08/28/16 08:59 07/30/16 09:16 75 MG EZETIMIBE (Zetia Tab) 10 mg DAILY PO 07/29/16 09:00 08/28/16 08:59 07/30/16 09:16 10 MG Metoclopramide HCl (Reglan Tab) 5 mg ACHS PO 07/29/16 08:00 08/28/16 07:59 07/30/16 09:16 5 MG Pantoprazole Sodium (Protonix Tab) 40 mg DAILY PO 07/29/16 09:00 08/28/16 08:59 07/30/16 09:16 40 MG Sertraline HCl (Zoloft Tab) 50 mg DAILY PO 07/29/16 09:00 08/28/16 08:59 07/30/16 09:16 50 MG Ursodiol (Actigall Cap) 300 mg BID PO 07/29/16 09:00 08/28/16 08:59 07/30/16 09:17 300 MG Miscellaneous (Iv Fluids Completed) 1 ea PRN PRN N/A 07/28/16 23:00 07/28/17 22:59 Insulin Glargine 5 unit 5 unit BID SC 07/29/16 09:00 08/28/16 08:59 07/30/16 09:23 5 UNIT Sodium Chloride (1/2 Nss 1000ml) 1,000 ml @ 80 mls/hr [id number] IV 07/29/16 04:15 08/28/16 04:14 07/30/16 11:06 80 MLS/HR Ondansetron HCl (Zofran Inj) 4 mg Q4H PRN IV 07/29/16 13:15 08/28/16 13:14 07/30/16 07:36 4 MG Insulin Aspart (novoLOG ASPART) SLIDING SCALE If C... ACHS SC 07/29/16 17:15 08/28/16 17:14 07/30/16 09:22 3 UNITS Hydralazine HCl (HydrALAZINE INJ) 10 mg Q4 PRN IV. 07/29/16 15:45 08/28/16 15:44 Objective Vital Signs Date Time Temp Pulse Resp B/P Pulse Ox O2 Delivery O2 Flow Rate FiO2 07/30/16 09:10 76 166/95 07/30/16 08:10 Room Air 07/30/16 07:53 76 190/105 07/30/16 07:27 37.0 82 18 207/102 99 Room Air 07/30/16 03:27 59 138/77 58 149/87 07/30/16 00:10 Room Air 07/29/16 23:50 36.5 57 14 95/58 94 Room Air 07/29/16 21:34 60 136/79 07/29/16 16:12 36.5 63 18 161/86 96 Room Air 07/29/16 15:50 Room Air 07/29/16 12:25 36.7 73 18 158/81 96 Room Air Physical Exam General Appearance: WD/WN, no apparent distress Eyes: normal inspection ENT: hearing grossly normal Neck: supple Respiratory/Chest: no respiratory distress Neurologic/Psych: alert, normal mood/affect, oriented x 3 Skin: normal color Laboratory Results Last 24 Hours Test 07/29/16 13:30 07/29/16 13:40 07/29/16 17:12 07/29/16 20:39 Creatine Kinase MB Ratio Creatine Kinase MB 7.8 ng/ml Troponin I 0.230 ng/ml Bedside Glucose 207 mg/dl 127 mg/dl Test 07/30/16 06:40 07/30/16 08:05 White Blood Count 9.50 K/uL Red Blood Count 3.81 M/uL Hemoglobin 10.6 g/dL Hematocrit 32.4 % Mean Corpuscular Volume 85.0 fL Mean Corpuscular Hemoglobin 27.8 pg Mean Corpuscular Hemoglobin Concent 32.7 g/dl Platelet Count 318 K/uL Mean Platelet Volume 11.1 fL Neutrophils (%) (Auto) 50.1 % Lymphocytes (%) (Auto) 39.3 % Monocytes (%) (Auto) 8.0 % Eosinophils (%) (Auto) 1.5 % Basophils (%) (Auto) 0.9 % Neutrophils # (Auto) 4.76 K/uL Lymphocytes # (Auto) 3.73 K/uL Monocytes # (Auto) 0.76 K/uL Eosinophils # (Auto) 0.14 K/uL Basophils # (Auto) 0.09 K/uL RDW Standard Deviation 46.6 fL RDW Coefficient of Variation 15.0 % Immature Granulocyte % (Auto) 0.2 % Immature Granulocyte # (Auto) 0.02 K/uL Sodium Level 140 mmol/L Potassium Level 4.0 mmol/L Chloride Level 105 mmol/L Carbon Dioxide Level 26 mmol/L Anion Gap 9.0 mmol/L Blood Urea Nitrogen 37 mg/dl Creatinine 2.40 mg/dl Est Creatinine Clear Calc Drug Dose 35.1 ml/min Estimated GFR () 36.4 Estimated GFR (Non- 31.4 BUN/Creatinine Ratio 15.5 Random Glucose 117 mg/dl Calcium Level 8.0 mg/dl Bedside Glucose 133 mg/dl Assessment and Plan 45yo with recurrent N/V, gastroparesis, symptomatic cholelithiasis - improved since admission. GI recommendations are to continue present med regimen: Zofran PRN as out patient Reglan 5mg AC and HS (may decrease frequency as tolerated) PPI daily follow up with surgery as planned advance diet as tolerated GI will sign off call with questions ATTESTATION: I have performed a history and physical examination of this patient and reviewed the electronic record. Specifically, on history nausea and vomiting have resolved. I have discussed the case with Trudy Dimas PA-C. The above note reflects my findings, conclusions, and recommendations. Victorino Puri MD
--- NOTE | 2016-07-30 13:06 | NEPHROLOGY CONSULTATION ---
DATE OF CONSULTATION: 07/30/2016 ATTENDING OF RECORD: Dr. Mcrae. REASON FOR CONSULTATION: CKD. HISTORY OF PRESENT ILLNESS: This is a 45-year-old male who I had last seen in my office in August of last year with CKD, stage 2 with hypertension, diabetes and nephrotic range proteinuria. The patient with proteinuria dating back to 2004. Does have diabetes with retinopathy and neuropathy, has been a diabetic for about 20 years, history of not being well controlled; hypertension for about 5 years which was well controlled up until recently, coronary artery disease with CABG x4 in July 2014. No tobacco, no NSAIDs. At the time that I saw the patient, creatinine was at 5 grams, which had worsened over the past year, likely from diabetes and hypertension. No myeloma and no hepatitis with proteinuria dating back to 2004 and hemoglobin A1c has not been well controlled in the past with retinopathy leading me to believe that the patient had nephrotic range proteinuria from diabetes and is being treated conservatively with MITCH inhibitor, does not smoke and avoids NSAIDs. Secondary workup for patient's hypertension was negative. The patient was on lisinopril. I did discuss with him the possibilities of doing a renal biopsy to be thorough given his age and significant nephrotic range proteinuria. The patient was not enthusiastic about a renal biopsy and declined doing a renal biopsy. The patient's creatinines have worsened during this hospitalization, last creatinine I have in our system is 1.1 in March 2016 with an albumin of 2.4. We have a creatinine of 1.1 from 06/18/2016 with hemoglobin A1c of 8.6. The patient now comes in with creatinine that has gone from 1.6 to 1.8 now up to 2.4 in the setting of cholecystitis. GI evaluated the patient and secondary to his recent stroke that has been about 3 months and neurology has been consulted for considering clearance for cholecystectomy. He did have recurrent nausea and vomiting likely secondary to his diabetes gastroparesis, cholelithiasis could also be contributing as well. He is on Reglan for gastric motility, Zofran and PPI. Plans are for possible cholecystectomy to help relieve his symptoms. Neurology evaluated the patient, given the fact that the patient had a recent stroke in April with resulting right handed weakness. Per Dr. Crane of neurology having a surgery in 0-3 months is 14.2% risk, 3-6 months 4.8%, 6-12 months is 2.5 and levels off after 9 months and that if the procedure is emergent then do it, but if they could wait, the risk of stroke from the procedure goes down and to continue the Plavix 75 mg, aspirin 81 mg a day, unless emergent surgery is needed. Dr. Crane is going to go ahead and take a look at prior imaging from [facility]. The patient was transferred from LTAC, located [facility] for the acute on chronic cholecystitis, states that he has been vomiting greater than 10 times per day with intractable nausea, vomiting and diarrhea. CT of the abdomen and pelvis showed bilateral pleural effusions as well as cholelithiasis. Did have significant acute stroke in April 2016 and has been on aspirin and Plavix since. The patient did come in with a creatinine that was elevated at 1.6 and has continued to trend up. Blood pressures have been quite tumultuous depending on whether he is having nausea and vomiting and/or abdominal pain, his blood pressures shoot up with systolics in the 200s to 190s and then go back down into the 130s to 160s. It has been more difficult to control with the recurrent nausea and vomiting. REVIEW OF SYSTEMS: Nausea and vomiting. No headaches, no blurry vision. Has some residual right-handed weakness from his stroke. No chest pain, no shortness of breath. Does have some diarrhea as well, decreased appetite. No rash or itching. All other review of systems is otherwise negative. PAST MEDICAL HISTORY: 1. CKD, stage 2 with baseline creatinine of 1.1 last checked June 18 of this year with significant nephrotic range proteinuria attributed to poorly controlled diabetes as well as underlying hypertension. The patient has declined a renal biopsy in the past. 2. Stroke recently in April this year with residual right hand weakness. Currently on aspirin and Plavix. 3. Hyperlipidemia. 4. Coronary artery disease with history of CABG. 5. Diabetes. 6. Hypertension. PAST SURGICAL HISTORY: CABG. FAMILY HISTORY: Significant for diabetes. SOCIAL HISTORY: No smoking, no alcohol, no drugs. He is and lives at home with family. HOME MEDICATIONS: Significant for lisinopril 40 mg a day, spironolactone daily, Lasix daily. CURRENT MEDICATIONS: Sliding-scale insulin, Aspirin 81 mg a day, Coreg 25 mg p.o. b.i.d., Plavix 75 mg a day, Zetia 10 mg daily, Protonix 40 mg daily, Zoloft 50 mg daily, Ursodiol 300 mg p.o. b.i.d., Lantus 5 units subQ b.i.d., Reglan 5 mg with meals and at night, normal saline at 80 mL an hour, heparin 5000 units subQ q. 8. PHYSICAL EXAMINATION: VITAL SIGNS: Temperature 37, pulse 76, respiratory rate is 18, blood pressure is 166/95. Satting 99% on room air. GENERAL: Awake, alert, oriented x3. EYES: No scleral icterus. ENT: Moist mucous membranes. NECK: Supple. PULMONARY: Clear to auscultation. CARDIAC: Regular rate and rhythm. ABDOMEN: Bowel sounds positive, soft, no significant tenderness in the right upper quadrant. EXTREMITIES: No clubbing, cyanosis or edema. NEUROLOGICALLY: He does have some residual right hand weakness but otherwise asymptomatic. DERM: No rash or ulcers noted. LABORATORY DATA: Sodium is 140, potassium is 4, chloride is 105, bicarbonate is 26, BUN is 37, creatinine is 2.4, glucose 117, calcium is 8. Troponin peaked at 0.271, is trending down. Magnesium was 2. Gallbladder ultrasound showed echogenic right kidney, no hydronephrosis. Gallbladder filled with sludge with multiple tiny stones. No gallbladder wall thickening. IMPRESSION AND PLAN: 1. Acute kidney injury, nonoliguric in the setting of hypertensive fluctuations and the recurrent nausea and vomiting with acute on chronic cholecystitis, currently on IV fluids attempting to control the blood pressure as well as possible. He does have underlying significant nephrotic range proteinuria attributed to diabetes and hypertension. Baseline creatinine is 1.1., did come in at 1.6 and is continuing to trend up. Hopefully, creatinine eventually peaks and starts to trend down, like to get a dedicated renal ultrasound. Continue the IV fluids. No indication for dialysis at this time. Would not recommend any procedures on the gallbladder at this time till creatinine has peaked and has started to trend down. So for now, attributing acute kidney injury to acute tubular necrosis with hypertensive fluctuations as well as volume depletion with nausea and vomiting. Unclear if patient received any contrast at LTAC, located within [facility] during any of the multiple imaging, but for now we will treat conservatively hoping creatinine eventually peaks and starts to trend down. I appreciate the consultation. KAYKAY
--- NOTE | 2016-07-30 14:44 | DIAGNOSTIC IMAGING REPORT ---
RENAL ULTRASOUND HISTORY: Acute kidney injury with underlying nephrotic syndrome from dm/htn COMPARISON: Abdominal ultrasound 07/28/2016. FINDINGS: Right kidney: 13.2 cm. No hydronephrosis. Increase cortical echogenicity. Normal cortical thickness. Left kidney: 13.5 cm. No hydronephrosis. Increased cortical echogenicity. Normal cortical thickness. Bladder: The patient recently voided. Therefore, the bladder is not well-distended. Bladder wall thickening is likely due to the underdistention. The ureteral jets are not identified. Miscellaneous: Right pleural effusion. IMPRESSION: 1. Bilateral echogenic kidneys suggestive of medical renal disease. 2. No hydronephrosis. 3. Under distended bladder. 4. Right pleural effusion. Electronically signed by: Vishal Roberts M.D. 07/30/2016 2:42 PM Dictated Date/Time: 07/30/2016 2:40 PM
--- NOTE | 2016-07-30 18:27 | Progress Note ---
Medicine Progress Note Date & Time of Visit: Jul 30, 2016 at 18:19. Subjective Pt was seen and examined Sitting in bed very comfortable eating with no distress Pt said that he feels much better today He said that he does not have any abdominal pain. Denies any chest pain, palpitation, dizziness and sob. Objective Last 8 Hrs Date Time Temp Pulse Resp B/P Pulse Ox O2 Delivery O2 Flow Rate FiO2 07/30/16 15:08 36.4 61 16 164/97 99 Room Air 07/30/16 12:19 59 18 157/88 Physical Exam: General- No acute distress Head- atraumatic Eyes- PERRL, EOMI ENT- oropharynx clear Neck- supple, no JVD Lungs- clear to auscultation and percussion Heart- regular rhythm Abdomen- normal bowel sounds, soft Extremities- no calf tenderness Neuro- alert, oriented x 3; PERRL, EOMI; no facial palsy; no dysarthria Skin- warm & dry Laboratory Results: Last 24 Hours Test 07/29/16 20:39 07/30/16 06:40 07/30/16 08:05 07/30/16 12:15 Bedside Glucose 127 mg/dl 133 mg/dl 216 mg/dl White Blood Count 9.50 K/uL Red Blood Count 3.81 M/uL Hemoglobin 10.6 g/dL Hematocrit 32.4 % Mean Corpuscular Volume 85.0 fL Mean Corpuscular Hemoglobin 27.8 pg Mean Corpuscular Hemoglobin Concent 32.7 g/dl Platelet Count 318 K/uL Mean Platelet Volume 11.1 fL Neutrophils (%) (Auto) 50.1 % Lymphocytes (%) (Auto) 39.3 % Monocytes (%) (Auto) 8.0 % Eosinophils (%) (Auto) 1.5 % Basophils (%) (Auto) 0.9 % Neutrophils # (Auto) 4.76 K/uL Lymphocytes # (Auto) 3.73 K/uL Monocytes # (Auto) 0.76 K/uL Eosinophils # (Auto) 0.14 K/uL Basophils # (Auto) 0.09 K/uL RDW Standard Deviation 46.6 fL RDW Coefficient of Variation 15.0 % Immature Granulocyte % (Auto) 0.2 % Immature Granulocyte # (Auto) 0.02 K/uL Sodium Level 140 mmol/L Potassium Level 4.0 mmol/L Chloride Level 105 mmol/L Carbon Dioxide Level 26 mmol/L Anion Gap 9.0 mmol/L Blood Urea Nitrogen 37 mg/dl Creatinine 2.40 mg/dl Est Creatinine Clear Calc Drug Dose 35.1 ml/min Estimated GFR () 36.4 Estimated GFR (Non- 31.4 BUN/Creatinine Ratio 15.5 Random Glucose 117 mg/dl Calcium Level 8.0 mg/dl Test 07/30/16 17:06 Bedside Glucose 81 mg/dl Assessment & Plan INTRACTABLE NAUSEA/VOMITING Multiple admission for n/v and abdominal plain Possible related to gastroparesis vs cholelithiasis CT abd/pelvis from Mg + stable bilateral pleural effusions and cholelithiasis U/S of the gallbladder showed the gallbladder is filled with sludge and multiple tiny stones. No gallbladder wall thickening. Case discussed with Trudy WILLIS that suggested to continue current management with Phenergan and Zofran Neuro consult placed for clearance for cholecystectomy since pt has a recent CVA on 04/30. Clinically stable. Neuro discussed the risks with pt for recurrent stroke after odds ratio for adverse event of surgery after stroke 0-3 months 14. 2 3-6 months 4.8 6-12 months 2.5 levels off after 9 months CHRONIC LUMBAR BACK PAIN -currently c/o 10/22 pain -on fentanyl patch at home on dilaudid prn for pain Stable INSULIN-DEPENDENT DM 2 last A1C 8.6 hold glipizide SSI coverage Continue monitor BS CHRONIC SYSTOLIC CHF Compensated well hold Lasix and Aldactone ACUTE ON CHRONIC KIDNEY DISEASE STAGE 3 Creatine on admission 1.6 worsening today to 2.4 Continue Gentle IVF @80 Continue holding lisinopril, lasix and aldactone U/S of the kidney showed bilateral echogenic kidneys suggestive of medical renal disease. Nephro on board Avoid nephrotoxic agents continue monitor BMP ELEVATED TROPONIN Possible related to acute on chronic CKD Denies any chest pain EKG showed no significant ST changes Stable HTN BP elevated Continue holding lasix, lisinopril and aldactone will add hydralazine prn Continue monitor BP DYSLIPIDEMIA -cont Zetia CAD S/P CABG -stable -continue ASA, Plavix, Coreg and lisinopril -pt currently denies anginal sxs H/O CVA -cont Aspirin/Plavix Neurology consulted for surgical clearance DEPRESSION -cont Zoloft H/O PFO -per record DVT PROPHYLAXIS: -subq heparin CODE STATUS FULL CODE Consultants: Gastro Neuro Current Inpatient Medications: Current Inpatient Medications Medications (Trade) Dose Ordered Sig/Mer Route Start Time Stop Time Status Last Admin Dose Admin Heparin Sodium (Porcine) (Heparin Sq 5000 Unit/0.5ml) 5,000 unit Q8H SQ 07/28/16 22:00 08/27/16 21:59 07/30/16 13:36 5,000 UNIT Hydromorphone HCl 0.5 mg 0.5 mg Q3H PRN IV 07/28/16 21:15 08/11/16 21:14 07/30/16 07:36 0.5 MG Promethazine HCl/ Sodium Chloride (Phenergan Inj/ Nss 50ml) 50.5 ml @ 204 mls/hr Q6H PRN IV 07/28/16 21:15 08/27/16 21:14 07/29/16 07:20 204 MLS/HR Tramadol HCl (Ultram Tab) not relieved by tylenol @ Q6H PRN PO 07/28/16 21:15 08/27/16 21:14 07/30/16 06:23 50 MG Acetaminophen (Tylenol Tab) 650 mg Q4H PRN PO 07/28/16 21:30 08/27/16 21:29 Glucose (Glucose 40% Gel) 15-30 GRAMS 15 GRAMS... UD PRN PO 07/28/16 21:30 08/27/16 21:29 Glucose (Glucose Chew Tab) 4-8 Tablets 4 Tabl... UD PRN PO 07/28/16 21:30 08/27/16 21:29 Dextrose (Dextrose 50% 50ML Syringe) 25-50ML OF 50% DW IV FOR... UD PRN IV 07/28/16 21:30 08/27/16 21:29 Glucagon 1 mg 1 mg UD PRN SQ 07/28/16 21:30 08/27/16 21:29 Lorazepam/Syringe (Ativan Inj/ Syringe) 1 ml @ 1 mls/min Q4H PRN IV 07/28/16 21:30 08/27/16 21:29 Aspirin (Ecotrin Tab) 81 mg QAM PO 07/29/16 09:00 08/28/16 08:59 07/30/16 09:16 81 MG Carvedilol (Coreg Tab) 25 mg BID PO 07/29/16 09:00 08/28/16 08:59 07/30/16 09:17 25 MG Clopidogrel Bisulfate (plAVix TAB) 75 mg DAILY PO 07/29/16 09:00 08/28/16 08:59 07/30/16 09:16 75 MG EZETIMIBE (Zetia Tab) 10 mg DAILY PO 07/29/16 09:00 08/28/16 08:59 07/30/16 09:16 10 MG Metoclopramide HCl (Reglan Tab) 5 mg ACHS PO 07/29/16 08:00 08/28/16 07:59 07/30/16 13:33 5 MG Pantoprazole Sodium (Protonix Tab) 40 mg DAILY PO 07/29/16 09:00 08/28/16 08:59 07/30/16 09:16 40 MG Sertraline HCl (Zoloft Tab) 50 mg DAILY PO 07/29/16 09:00 08/28/16 08:59 07/30/16 09:16 50 MG Ursodiol (Actigall Cap) 300 mg BID PO 07/29/16 09:00 08/28/16 08:59 07/30/16 09:17 300 MG Miscellaneous (Iv Fluids Completed) 1 ea PRN PRN N/A 07/28/16 23:00 07/28/17 22:59 Insulin Glargine 5 unit 5 unit BID SC 07/29/16 09:00 08/28/16 08:59 07/30/16 09:23 5 UNIT Sodium Chloride (1/2 Nss 1000ml) 1,000 ml @ 80 mls/hr [id number] IV 07/29/16 04:15 08/28/16 04:14 07/30/16 11:06 80 MLS/HR Ondansetron HCl (Zofran Inj) 4 mg Q4H PRN IV 07/29/16 13:15 08/28/16 13:14 07/30/16 07:36 4 MG Insulin Aspart (novoLOG ASPART) SLIDING SCALE If C... ACHS SC 07/29/16 17:15 08/28/16 17:14 07/30/16 13:35 6 UNITS Hydralazine HCl (HydrALAZINE INJ) 10 mg Q4 PRN IV. 07/29/16 15:45 08/28/16 15:44
--- NOTE | 2016-07-30 18:33 | Neurology Progress Notes ---
Neurology Progress Note Date of Service Jul 30, 2016. Tala Santos is a 45 y/o male with PMH of CAD s/p CABG, CVA on Plavix, Insulin- Dependent DM 2, HTN, Dyslipidemia. He is a direct transfer from formerly [facility] for intractable nausea and vomiting. He estimates he has vomited >10 times yesterday. He tried taking Zofran at home but could not keep it down. When he vomits he has back pain and abdominal pain. He has a history of intermittent nausea and vomiting over the past year. There is a suspected diagnosis of gastroparesis and refused a gastric emptying study He also has symptomatic cholelithiasis. He was scheduled for cholecystectomy in the fall however the procedure was postponed due to acute CVA in April 2016. After the stroke he was started on plavix. 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 He was schedule to see a neurologist in [place] but never went to the appointment. His Aunt is in the room an states she thinks he has had several strokes. They tried to transfer the patient to [place] but no beds were available. He states the only residual he has from the stroke is clumsy with right hand an balance issues. Today he states he has decided to wait to have the procedure done. He is followed at the [facility] for his GI issues and had a follow up scheduled for neurology in [place]. The record as of this visit had not been received from [facility] but it is a mute issues since he is going to wait. Objective Date Time Temp Pulse Resp B/P Pulse Ox O2 Delivery O2 Flow Rate FiO2 07/30/16 15:08 36.4 61 16 164/97 99 Room Air 07/30/16 12:19 59 18 157/88 07/30/16 09:10 76 166/95 07/30/16 08:10 Room Air 07/30/16 07:53 76 190/105 07/30/16 07:27 37.0 82 18 207/102 99 Room Air 07/30/16 03:27 59 138/77 58 149/87 07/30/16 00:10 Room Air 07/29/16 23:50 36.5 57 14 95/58 94 Room Air 07/29/16 21:34 60 136/79 Last 24 Hours Test 07/29/16 20:39 07/30/16 06:40 07/30/16 08:05 07/30/16 12:15 Bedside Glucose 127 mg/dl 133 mg/dl 216 mg/dl White Blood Count 9.50 K/uL Red Blood Count 3.81 M/uL Hemoglobin 10.6 g/dL Hematocrit 32.4 % Mean Corpuscular Volume 85.0 fL Mean Corpuscular Hemoglobin 27.8 pg Mean Corpuscular Hemoglobin Concent 32.7 g/dl Platelet Count 318 K/uL Mean Platelet Volume 11.1 fL Neutrophils (%) (Auto) 50.1 % Lymphocytes (%) (Auto) 39.3 % Monocytes (%) (Auto) 8.0 % Eosinophils (%) (Auto) 1.5 % Basophils (%) (Auto) 0.9 % Neutrophils # (Auto) 4.76 K/uL Lymphocytes # (Auto) 3.73 K/uL Monocytes # (Auto) 0.76 K/uL Eosinophils # (Auto) 0.14 K/uL Basophils # (Auto) 0.09 K/uL RDW Standard Deviation 46.6 fL RDW Coefficient of Variation 15.0 % Immature Granulocyte % (Auto) 0.2 % Immature Granulocyte # (Auto) 0.02 K/uL Sodium Level 140 mmol/L Potassium Level 4.0 mmol/L Chloride Level 105 mmol/L Carbon Dioxide Level 26 mmol/L Anion Gap 9.0 mmol/L Blood Urea Nitrogen 37 mg/dl Creatinine 2.40 mg/dl Est Creatinine Clear Calc Drug Dose 35.1 ml/min Estimated GFR () 36.4 Estimated GFR (Non- 31.4 BUN/Creatinine Ratio 15.5 Random Glucose 117 mg/dl Calcium Level 8.0 mg/dl Test 07/30/16 17:06 Bedside Glucose 81 mg/dl Imaging: no further imaging Exam: Physical Exam: Constitutional: appearance nourished, pale NAD Ears, Nose, Mouth and Throat: mucous membranes moist, no injection and skin normal, eyes normal Cardiovascular: normal S-1 and S-2 and regular rate and rhythm Respiratory: clear to auscultation (CTA) and no rales, rhonchi or wheeze Musculoskeletal: no peripheral edema Skin: no stigmata of neurocutaneous disease noted and normal and intact Eyes: extraocular muscles intact (EOMI) and pupils equal, round and reactive to light (PERRL) NEUROLOGIC EXAMINATION: Mental status: Alert and interactive Oriented to full date and location Oriented to person Speech fluent with no evidence of aphasia Cranial Nerves no facial asymmetry tongue midline Coordination: leans to right with eyes closed, slight imbalance when first rising from bed quickly corrects Gait/Stance: Posture normal. tandem gait Current Inpatient Medications Medications (Trade) Dose Ordered Sig/Mer Route Start Time Stop Time Status Last Admin Dose Admin Heparin Sodium (Porcine) (Heparin Sq 5000 Unit/0.5ml) 5,000 unit Q8H SQ 07/28/16 22:00 08/27/16 21:59 07/30/16 13:36 5,000 UNIT Hydromorphone HCl 0.5 mg 0.5 mg Q3H PRN IV 07/28/16 21:15 08/11/16 21:14 07/30/16 07:36 0.5 MG Promethazine HCl/ Sodium Chloride (Phenergan Inj/ Nss 50ml) 50.5 ml @ 204 mls/hr Q6H PRN IV 07/28/16 21:15 08/27/16 21:14 07/29/16 07:20 204 MLS/HR Tramadol HCl (Ultram Tab) not relieved by tylenol @ Q6H PRN PO 07/28/16 21:15 08/27/16 21:14 07/30/16 06:23 50 MG Acetaminophen (Tylenol Tab) 650 mg Q4H PRN PO 07/28/16 21:30 08/27/16 21:29 Glucose (Glucose 40% Gel) 15-30 GRAMS 15 GRAMS... UD PRN PO 07/28/16 21:30 08/27/16 21:29 Glucose (Glucose Chew Tab) 4-8 Tablets 4 Tabl... UD PRN PO 07/28/16 21:30 08/27/16 21:29 Dextrose (Dextrose 50% 50ML Syringe) 25-50ML OF 50% DW IV FOR... UD PRN IV 07/28/16 21:30 08/27/16 21:29 Glucagon 1 mg 1 mg UD PRN SQ 07/28/16 21:30 08/27/16 21:29 Lorazepam/Syringe (Ativan Inj/ Syringe) 1 ml @ 1 mls/min Q4H PRN IV 07/28/16 21:30 08/27/16 21:29 Aspirin (Ecotrin Tab) 81 mg QAM PO 07/29/16 09:00 08/28/16 08:59 07/30/16 09:16 81 MG Carvedilol (Coreg Tab) 25 mg BID PO 07/29/16 09:00 08/28/16 08:59 07/30/16 09:17 25 MG Clopidogrel Bisulfate (plAVix TAB) 75 mg DAILY PO 07/29/16 09:00 08/28/16 08:59 07/30/16 09:16 75 MG EZETIMIBE (Zetia Tab) 10 mg DAILY PO 07/29/16 09:00 08/28/16 08:59 07/30/16 09:16 10 MG Metoclopramide HCl (Reglan Tab) 5 mg ACHS PO 07/29/16 08:00 08/28/16 07:59 07/30/16 13:33 5 MG Pantoprazole Sodium (Protonix Tab) 40 mg DAILY PO 07/29/16 09:00 08/28/16 08:59 07/30/16 09:16 40 MG Sertraline HCl (Zoloft Tab) 50 mg DAILY PO 07/29/16 09:00 08/28/16 08:59 07/30/16 09:16 50 MG Ursodiol (Actigall Cap) 300 mg BID PO 07/29/16 09:00 08/28/16 08:59 07/30/16 09:17 300 MG Miscellaneous (Iv Fluids Completed) 1 ea PRN PRN N/A 07/28/16 23:00 07/28/17 22:59 Insulin Glargine 5 unit 5 unit BID SC 07/29/16 09:00 08/28/16 08:59 07/30/16 09:23 5 UNIT Sodium Chloride (1/2 Nss 1000ml) 1,000 ml @ 80 mls/hr [id number] IV 07/29/16 04:15 08/28/16 04:14 07/30/16 11:06 80 MLS/HR Ondansetron HCl (Zofran Inj) 4 mg Q4H PRN IV 07/29/16 13:15 08/28/16 13:14 07/30/16 07:36 4 MG Insulin Aspart (novoLOG ASPART) SLIDING SCALE If C... ACHS SC 07/29/16 17:15 08/28/16 17:14 07/30/16 13:35 6 UNITS Hydralazine HCl (HydrALAZINE INJ) 10 mg Q4 PRN IV. 07/29/16 15:45 08/28/16 15:44 Impression 45 year old male with PMH stroke in April with intermitted nausea, vomiting Plan 1. record of strokes requested from [facility] 2. risk of recurrent stroke after odds ratio for adverse event of surgery after stroke 0-3 months 14. 2 3-6 months 4.8 6-12 months 2.5 levels off after 9 months This was discussed with patient and aunt. they voice understanding. of course if this emergent and the risk of waiting to do the procedure is greater than the risk of stroke the procedure would take precedence but if the is elective the risk of stroke would need to be considered. 3. hospital record are still not available. patient plans on wait to have procedure the full 6 months as recommended. 4. continue plavix 75 mg and aspirin 81 mg at this point unless emergent surgery is needed. 5. he will follow up with neurology in [place] area I have discussed above patient with Dr Ileana Crane, neurology As we have no records cannot comment specifically regarding surgical risk, ie we do not know if pt has high grade carotid stenosis. His treating neurologist should clear him for elective surgery. MARIJA Crane MD
[2016-07-30] MEDS ORDERED: FENTANYL 12 MCG/HR TDSY TD SCH (23:30)
[2016-07-31] VITALS (7 sets, daily range): BP systolic 160–200; BP diastolic 87–115; PULSE 63–86; TEMP 36.8–36.9; O2SAT 95–97
[2016-07-31 06:14] LABS: HEMATOCRIT 31.8 % (42-52); MEAN CORPUSCULAR HEMOGLOBIN 28.1 pg (25-34); MEAN PLATELET VOLUME 11.7 fL (7.4-10.4); PLATELET COUNT 283 K/uL (130-400); RED BLOOD COUNT 3.74 M/uL (4.7-6.1); WHITE BLOOD COUNT 7.99 K/uL (4.8-10.8)
[2016-07-31] MEDS: HEPARIN SOD 5000 UNIT/0.5 ML CARP SQ SCH ×3 (06:14→21:31)
[2016-07-31 07:00] LABS: BUN/CREATININE RATIO 13.6 (10-20); CALCIUM 7.9 mg/dl (8.5-10.1); CREATININE 2.1 mg/dl (0.60-1.40); POTASSIUM 3.7 mmol/L (3.5-5.1)
[2016-07-31] MEDS: CHECK FENTANYL PATCH PLACEMENT SCH ×3 (07:35→23:56)
[2016-07-31] MEDS: METOCLOPRAMIDE HCL 5 MG TAB PO SCH ×4 (07:38→21:35)
[2016-07-31] MEDS: URSODIOL 300 MG CAP PO SCH ×2 (09:20→21:35)
[2016-07-31] MEDS: CARVEDILOL 25 MG TAB PO SCH ×2 (09:20→21:35)
[2016-07-31] MEDS: PANTOprazole SOD 40 MG TAB PO SCH (09:20)
[2016-07-31] MEDS: CLOPIDOGREL BISULFATE 75 MG TAB PO SCH (09:21)
[2016-07-31] MEDS: EZETIMIBE 10MG TAB PO SCH (09:21)
[2016-07-31] MEDS: ASPIRIN 81 MG ECTAB PO SCH (09:21)
[2016-07-31] MEDS: SERTRALINE HCL 50 MG TAB PO SCH (09:21)
[2016-07-31] MEDS: INSULIN ASPART 100 UNITS/ML 3 ML PEN SC SCH ×4 (09:28→21:00)
[2016-07-31] MEDS: INSULIN GLARGINE SOLOSTAR 100 UNITS/ML 3 ML PEN SC SCH (09:29)
[2016-07-31] MEDS: SODIUM CHLORIDE 0.45% 1000ML 1,000 ML IV SCH ×2 (13:46→23:52)
--- NOTE | 2016-07-31 16:13 | Nephrology Progress Note ---
Nephrology Progress Note Date of Service: Jul 31, 2016. Subjective 45 yo male with acute on chronic cholecystitis with recent stroke in april and presents with marnie with creatinine that peaked and now trending down. n/v/ abdominal pain has improved. walking in hallways and feels good. tolerating fluids well. no sob. Objective Date Time Temp Pulse Resp B/P Pulse Ox O2 Delivery O2 Flow Rate FiO2 07/31/16 16:00 36.9 63 16 162/90 95 Room Air 07/31/16 07:48 36.9 68 16 176/94 97 Room Air 07/31/16 07:20 Room Air 07/30/16 23:30 Room Air 07/30/16 23:16 36.7 64 15 135/86 97 Room Air 07/30/16 21:04 72 166/104 07/30/16 19:24 61 148/83 07/30/16 18:30 Room Air Physical Exam: General-aaox3 Eyes-no scleral icterus ENT-mmm Neck-supple Lungs-mild rales at right base Heart-rrr Abdomen-bs+ s/nt/nd Extremities-no c/c/e Neuro-nonfocal Current Inpatient Medications Medications (Trade) Dose Ordered Sig/Mer Route Start Time Stop Time Status Last Admin Dose Admin Heparin Sodium (Porcine) (Heparin Sq 5000 Unit/0.5ml) 5,000 unit Q8H SQ 07/28/16 22:00 08/27/16 21:59 07/31/16 13:48 5,000 UNIT Hydromorphone HCl 0.5 mg 0.5 mg Q3H PRN IV 07/28/16 21:15 08/11/16 21:14 07/30/16 07:36 0.5 MG Promethazine HCl/ Sodium Chloride (Phenergan Inj/ Nss 50ml) 50.5 ml @ 204 mls/hr Q6H PRN IV 07/28/16 21:15 08/27/16 21:14 07/29/16 07:20 204 MLS/HR Tramadol HCl (Ultram Tab) not relieved by tylenol @ Q6H PRN PO 07/28/16 21:15 08/27/16 21:14 07/30/16 06:23 50 MG Acetaminophen (Tylenol Tab) 650 mg Q4H PRN PO 07/28/16 21:30 08/27/16 21:29 Glucose (Glucose 40% Gel) 15-30 GRAMS 15 GRAMS... UD PRN PO 07/28/16 21:30 08/27/16 21:29 Glucose (Glucose Chew Tab) 4-8 Tablets 4 Tabl... UD PRN PO 07/28/16 21:30 08/27/16 21:29 Dextrose (Dextrose 50% 50ML Syringe) 25-50ML OF 50% DW IV FOR... UD PRN IV 07/28/16 21:30 08/27/16 21:29 Glucagon 1 mg 1 mg UD PRN SQ 07/28/16 21:30 08/27/16 21:29 Lorazepam/Syringe (Ativan Inj/ Syringe) 1 ml @ 1 mls/min Q4H PRN IV 07/28/16 21:30 08/27/16 21:29 Aspirin (Ecotrin Tab) 81 mg QAM PO 07/29/16 09:00 08/28/16 08:59 07/31/16 09:21 81 MG Carvedilol (Coreg Tab) 25 mg BID PO 07/29/16 09:00 08/28/16 08:59 07/31/16 09:20 25 MG Clopidogrel Bisulfate (plAVix TAB) 75 mg DAILY PO 07/29/16 09:00 08/28/16 08:59 07/31/16 09:21 75 MG EZETIMIBE (Zetia Tab) 10 mg DAILY PO 07/29/16 09:00 08/28/16 08:59 07/31/16 09:21 10 MG Metoclopramide HCl (Reglan Tab) 5 mg ACHS PO 07/29/16 08:00 08/28/16 07:59 07/31/16 13:46 5 MG Pantoprazole Sodium (Protonix Tab) 40 mg DAILY PO 07/29/16 09:00 08/28/16 08:59 07/31/16 09:20 40 MG Sertraline HCl (Zoloft Tab) 50 mg DAILY PO 07/29/16 09:00 08/28/16 08:59 07/31/16 09:21 50 MG Ursodiol (Actigall Cap) 300 mg BID PO 07/29/16 09:00 08/28/16 08:59 07/31/16 09:20 300 MG Miscellaneous (Iv Fluids Completed) 1 ea PRN PRN N/A 07/28/16 23:00 07/28/17 22:59 Insulin Glargine 5 unit 5 unit BID SC 07/29/16 09:00 08/28/16 08:59 07/31/16 09:29 5 UNIT Sodium Chloride (1/2 Nss 1000ml) 1,000 ml @ 80 mls/hr [id number] IV 07/29/16 04:15 08/28/16 04:14 07/31/16 13:46 80 MLS/HR Ondansetron HCl (Zofran Inj) 4 mg Q4H PRN IV 07/29/16 13:15 08/28/16 13:14 07/30/16 07:36 4 MG Insulin Aspart (novoLOG ASPART) SLIDING SCALE If C... ACHS SC 07/29/16 17:15 08/28/16 17:14 07/31/16 09:28 1 UNITS Hydralazine HCl (HydrALAZINE INJ) 10 mg Q4 PRN IV. 07/29/16 15:45 08/28/16 15:44 Fentanyl (Duragesic Patch) 12 mcg Q3D@2100 TD 07/30/16 23:30 08/13/16 23:29 07/30/16 23:29 12 MCG Miscellaneous (Fentanyl Patch Remove & Waste) 1 ea Q3D@2059 N/A 08/02/16 20:59 09/01/16 20:58 Miscellaneous Information (Check Fentanyl Patch Placement) 1 ea QS N/A 07/31/16 08:00 08/30/16 07:59 07/31/16 07:35 1 EA Last 24 Hours Test 07/30/16 17:06 07/30/16 20:39 07/31/16 05:39 07/31/16 08:37 Bedside Glucose 81 mg/dl 200 mg/dl 139 mg/dl White Blood Count 7.99 K/uL Red Blood Count 3.74 M/uL Hemoglobin 10.5 g/dL Hematocrit 31.8 % Mean Corpuscular Volume 85.0 fL Mean Corpuscular Hemoglobin 28.1 pg Mean Corpuscular Hemoglobin Concent 33.0 g/dl RDW Standard Deviation 45.7 fL RDW Coefficient of Variation 14.6 % Platelet Count 283 K/uL Mean Platelet Volume 11.7 fL Sodium Level 139 mmol/L Potassium Level 3.7 mmol/L Chloride Level 107 mmol/L Carbon Dioxide Level 24 mmol/L Anion Gap 8.0 mmol/L Blood Urea Nitrogen 29 mg/dl Creatinine 2.10 mg/dl Est Creatinine Clear Calc Drug Dose 40.1 ml/min Estimated GFR () 42.8 Estimated GFR (Non- 36.9 BUN/Creatinine Ratio 13.6 Random Glucose 116 mg/dl Calcium Level 7.9 mg/dl Test 07/31/16 12:20 Bedside Glucose 158 mg/dl Assessment & Plan DBV-yko-gldqmhov-atn-creatinine peaked at 2.4 and trending down. on iv fluids to help aide in renal recovery. plan will be to stop the iv fluids tomorrow morning. renal us with no hydro. signs of medical renal disease. if creatinine sufficiently trending down tomorrow, ok from renal perspective to go home with outpt labs next week.
--- NOTE | 2016-07-31 18:56 | Progress Note ---
Medicine Progress Note Date & Time of Visit: Jul 31, 2016 at 18:50. Subjective Pt was seen and examined Sitting in bed with no distress Pt said that he is very hungry he does not want to eat the full liquid he wants to eat regular diet denies any chest pain, palpitation, dizziness, SOB and abdominal pain Objective Last 8 Hrs Date Time Temp Pulse Resp B/P Pulse Ox O2 Delivery O2 Flow Rate FiO2 07/31/16 16:00 36.9 63 16 162/90 95 Room Air 07/31/16 15:30 Room Air Physical Exam: General- No acute distress Head- atraumatic Eyes- PERRL, EOMI ENT- oropharynx clear Neck- supple, no JVD Lungs- clear to auscultation and percussion Heart- regular rhythm Abdomen- normal bowel sounds, soft Extremities- no calf tenderness Neuro- alert, oriented x 3; PERRL, EOMI; no facial palsy; no dysarthria Skin- warm & dry Laboratory Results: Last 24 Hours Test 07/30/16 20:39 07/31/16 05:39 07/31/16 08:37 07/31/16 12:20 Bedside Glucose 200 mg/dl 139 mg/dl 158 mg/dl White Blood Count 7.99 K/uL Red Blood Count 3.74 M/uL Hemoglobin 10.5 g/dL Hematocrit 31.8 % Mean Corpuscular Volume 85.0 fL Mean Corpuscular Hemoglobin 28.1 pg Mean Corpuscular Hemoglobin Concent 33.0 g/dl RDW Standard Deviation 45.7 fL RDW Coefficient of Variation 14.6 % Platelet Count 283 K/uL Mean Platelet Volume 11.7 fL Sodium Level 139 mmol/L Potassium Level 3.7 mmol/L Chloride Level 107 mmol/L Carbon Dioxide Level 24 mmol/L Anion Gap 8.0 mmol/L Blood Urea Nitrogen 29 mg/dl Creatinine 2.10 mg/dl Est Creatinine Clear Calc Drug Dose 40.1 ml/min Estimated GFR () 42.8 Estimated GFR (Non- 36.9 BUN/Creatinine Ratio 13.6 Random Glucose 116 mg/dl Calcium Level 7.9 mg/dl Test 07/31/16 16:30 Bedside Glucose 206 mg/dl Assessment & Plan INTRACTABLE NAUSEA/VOMITING Multiple admission for n/v and abdominal plain Possible related to gastroparesis vs cholelithiasis CT abd/pelvis from [facility] + stable bilateral pleural effusions and cholelithiasis U/S of the gallbladder showed the gallbladder is filled with sludge and multiple tiny stones. No gallbladder wall thickening. Case discussed with Trudy WILLIS that suggested to continue current management with Phenergan and Zofran Neuro consult placed for clearance for cholecystectomy since pt has a recent CVA on 04/30. Clinically stable. Pt will wait after the 6 months window to get the surgery done since his risk drop to get another stroke Neuro discussed the risks with pt for recurrent stroke after odds ratio for adverse event of surgery after stroke 0-3 months 14. 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 Nephro on board Avoid nephrotoxic agents continue monitor BMP ELEVATED TROPONIN Possible related to acute on chronic CKD Denies any chest pain EKG showed no significant ST changes Stable HTN BP elevated Continue holding lasix, lisinopril and aldactone will add hydralazine prn Continue monitor BP DYSLIPIDEMIA -cont Zetia CAD S/P CABG -stable -continue ASA, Plavix, Coreg and lisinopril -pt currently denies anginal sxs H/O CVA -cont Aspirin/Plavix Neurology consulted for surgical clearance DEPRESSION -cont Zoloft H/O PFO -per record DVT PROPHYLAXIS: -subq heparin CODE STATUS FULL CODE Consultants: [facility] Current Inpatient Medications: Current Inpatient Medications Medications (Trade) Dose Ordered Sig/Mer Route Start Time Stop Time Status Last Admin Dose Admin Heparin Sodium (Porcine) (Heparin Sq 5000 Unit/0.5ml) 5,000 unit Q8H SQ 07/28/16 22:00 08/27/16 21:59 07/31/16 13:48 5,000 UNIT Hydromorphone HCl 0.5 mg 0.5 mg Q3H PRN IV 07/28/16 21:15 08/11/16 21:14 07/30/16 07:36 0.5 MG Promethazine HCl/ Sodium Chloride (Phenergan Inj/ Nss 50ml) 50.5 ml @ 204 mls/hr Q6H PRN IV 07/28/16 21:15 08/27/16 21:14 07/29/16 07:20 204 MLS/HR Tramadol HCl (Ultram Tab) not relieved by tylenol @ Q6H PRN PO 07/28/16 21:15 08/27/16 21:14 07/30/16 06:23 50 MG Acetaminophen (Tylenol Tab) 650 mg Q4H PRN PO 07/28/16 21:30 08/27/16 21:29 Glucose (Glucose 40% Gel) 15-30 GRAMS 15 GRAMS... UD PRN PO 07/28/16 21:30 08/27/16 21:29 Glucose (Glucose Chew Tab) 4-8 Tablets 4 Tabl... UD PRN PO 07/28/16 21:30 08/27/16 21:29 Dextrose (Dextrose 50% 50ML Syringe) 25-50ML OF 50% DW IV FOR... UD PRN IV 07/28/16 21:30 08/27/16 21:29 Glucagon 1 mg 1 mg UD PRN SQ 07/28/16 21:30 08/27/16 21:29 Lorazepam/Syringe (Ativan Inj/ Syringe) 1 ml @ 1 mls/min Q4H PRN IV 07/28/16 21:30 08/27/16 21:29 Aspirin (Ecotrin Tab) 81 mg QAM PO 07/29/16 09:00 08/28/16 08:59 07/31/16 09:21 81 MG Carvedilol (Coreg Tab) 25 mg BID PO 07/29/16 09:00 08/28/16 08:59 07/31/16 09:20 25 MG Clopidogrel Bisulfate (plAVix TAB) 75 mg DAILY PO 07/29/16 09:00 08/28/16 08:59 07/31/16 09:21 75 MG EZETIMIBE (Zetia Tab) 10 mg DAILY PO 07/29/16 09:00 08/28/16 08:59 07/31/16 09:21 10 MG Metoclopramide HCl (Reglan Tab) 5 mg ACHS PO 07/29/16 08:00 08/28/16 07:59 07/31/16 18:00 5 MG Pantoprazole Sodium (Protonix Tab) 40 mg DAILY PO 07/29/16 09:00 08/28/16 08:59 07/31/16 09:20 40 MG Sertraline HCl (Zoloft Tab) 50 mg DAILY PO 07/29/16 09:00 08/28/16 08:59 07/31/16 09:21 50 MG Ursodiol (Actigall Cap) 300 mg BID PO 07/29/16 09:00 08/28/16 08:59 07/31/16 09:20 300 MG Miscellaneous (Iv Fluids Completed) 1 ea PRN PRN N/A 07/28/16 23:00 07/28/17 22:59 Insulin Glargine 5 unit 5 unit BID SC 07/29/16 09:00 08/28/16 08:59 07/31/16 09:29 5 UNIT Sodium Chloride (1/2 Nss 1000ml) 1,000 ml @ 80 mls/hr [id number] IV 07/29/16 04:15 08/28/16 04:14 07/31/16 13:46 80 MLS/HR Ondansetron HCl (Zofran Inj) 4 mg Q4H PRN IV 07/29/16 13:15 08/28/16 13:14 07/30/16 07:36 4 MG Insulin Aspart (novoLOG ASPART) SLIDING SCALE If C... ACHS SC 07/29/16 17:15 08/28/16 17:14 07/31/16 18:10 6 UNITS Hydralazine HCl (HydrALAZINE INJ) 10 mg Q4 PRN IV. 07/29/16 15:45 08/28/16 15:44 Fentanyl (Duragesic Patch) 12 mcg Q3D@2100 TD 07/30/16 23:30 08/13/16 23:29 07/30/16 23:29 12 MCG Miscellaneous (Fentanyl Patch Remove & Waste) 1 ea Q3D@2058 N/A 08/02/16 20:59 09/01/16 20:58 Miscellaneous Information (Check Fentanyl Patch Placement) 1 ea QS N/A 07/31/16 08:00 08/30/16 07:59 07/31/16 16:00 1 EA
[2016-07-31] MEDS ORDERED: INSULIN GLARGINE SOLOSTAR 100 UNITS/ML 3 ML PEN SC ONE (21:49)
[2016-08-01 00:34] VITALS: BP 159/84
[2016-08-01] MEDS: HEPARIN SOD 5000 UNIT/0.5 ML CARP SQ SCH ×2 (06:20→13:30)
[2016-08-01 06:49] LABS: BUN/CREATININE RATIO 12.7 (10-20); CALCIUM 7.8 mg/dl (8.5-10.1); CREATININE 1.8 mg/dl (0.60-1.40); POTASSIUM 3.8 mmol/L (3.5-5.1)
[2016-08-01 07:01] VITALS: BP 162/84; PULSE 77; TEMP 36.9; O2SAT 93
--- NOTE | 2016-08-01 07:16 | Nephrology Progress Note ---
Nephrology Progress Note Date of Service: Aug 01, 2016. Subjective 45 yo male with acute on chronic cholecystitis with recent stroke in april and presents with marnie with creatinine that peaked and now trending down. pt comfortable. eating well. urinating well on iv fluids. no sob. Objective Date Time Temp Pulse Resp B/P Pulse Ox O2 Delivery O2 Flow Rate FiO2 08/01/16 00:34 159/84 07/31/16 23:55 170/91 07/31/16 23:55 Room Air 07/31/16 23:45 36.8 86 16 169/89 95 Room Air 07/31/16 22:30 160/87 07/31/16 22:08 74 200/115 07/31/16 21:35 71 192/112 192/107 07/31/16 16:00 36.9 63 16 162/90 95 Room Air 07/31/16 15:30 Room Air 07/31/16 07:48 36.9 68 16 176/94 97 Room Air 07/31/16 07:20 Room Air Physical Exam: General-aaox3 Eyes-no scleral icterus ENT-mmm Neck-supple Lungs-cta Heart-regular Abdomen-bs+ s/nt/nd Extremities-no c/c/e Neuro-nonfocal Current Inpatient Medications Medications (Trade) Dose Ordered Sig/Mer Route Start Time Stop Time Status Last Admin Dose Admin Heparin Sodium (Porcine) (Heparin Sq 5000 Unit/0.5ml) 5,000 unit Q8H SQ 07/28/16 22:00 08/27/16 21:59 08/01/16 06:20 5,000 UNIT Hydromorphone HCl 0.5 mg 0.5 mg Q3H PRN IV 07/28/16 21:15 08/11/16 21:14 07/30/16 07:36 0.5 MG Promethazine HCl/ Sodium Chloride (Phenergan Inj/ Nss 50ml) 50.5 ml @ 204 mls/hr Q6H PRN IV 07/28/16 21:15 08/27/16 21:14 07/29/16 07:20 204 MLS/HR Tramadol HCl (Ultram Tab) not relieved by tylenol @ Q6H PRN PO 07/28/16 21:15 08/27/16 21:14 07/30/16 06:23 50 MG Acetaminophen (Tylenol Tab) 650 mg Q4H PRN PO 07/28/16 21:30 08/27/16 21:29 Glucose (Glucose 40% Gel) 15-30 GRAMS 15 GRAMS... UD PRN PO 07/28/16 21:30 08/27/16 21:29 Glucose (Glucose Chew Tab) 4-8 Tablets 4 Tabl... UD PRN PO 07/28/16 21:30 08/27/16 21:29 Dextrose (Dextrose 50% 50ML Syringe) 25-50ML OF 50% DW IV FOR... UD PRN IV 07/28/16 21:30 08/27/16 21:29 Glucagon 1 mg 1 mg UD PRN SQ 07/28/16 21:30 08/27/16 21:29 Lorazepam/Syringe (Ativan Inj/ Syringe) 1 ml @ 1 mls/min Q4H PRN IV 07/28/16 21:30 08/27/16 21:29 Aspirin (Ecotrin Tab) 81 mg QAM PO 07/29/16 09:00 08/28/16 08:59 07/31/16 09:21 81 MG Carvedilol (Coreg Tab) 25 mg BID PO 07/29/16 09:00 08/28/16 08:59 07/31/16 21:35 25 MG Clopidogrel Bisulfate (plAVix TAB) 75 mg DAILY PO 07/29/16 09:00 08/28/16 08:59 07/31/16 09:21 75 MG EZETIMIBE (Zetia Tab) 10 mg DAILY PO 07/29/16 09:00 08/28/16 08:59 07/31/16 09:21 10 MG Metoclopramide HCl (Reglan Tab) 5 mg ACHS PO 07/29/16 08:00 08/28/16 07:59 07/31/16 21:35 5 MG Pantoprazole Sodium (Protonix Tab) 40 mg DAILY PO 07/29/16 09:00 08/28/16 08:59 07/31/16 09:20 40 MG Sertraline HCl (Zoloft Tab) 50 mg DAILY PO 07/29/16 09:00 08/28/16 08:59 07/31/16 09:21 50 MG Ursodiol (Actigall Cap) 300 mg BID PO 07/29/16 09:00 08/28/16 08:59 07/31/16 21:35 300 MG Miscellaneous 1 ea 1 ea PRN PRN N/A 07/28/16 23:00 07/28/17 22:59 Sodium Chloride (1/2 Nss 1000ml) 1,000 ml @ 80 mls/hr [id number] IV 07/29/16 04:15 08/28/16 04:14 07/31/16 23:52 80 MLS/HR Ondansetron HCl (Zofran Inj) 4 mg Q4H PRN IV 07/29/16 13:15 08/28/16 13:14 07/30/16 07:36 4 MG Insulin Aspart (novoLOG ASPART) SLIDING SCALE If C... ACHS SC 07/29/16 17:15 08/28/16 17:14 07/31/16 18:10 6 UNITS Hydralazine HCl (HydrALAZINE INJ) 10 mg Q4 PRN IV. 07/29/16 15:45 08/28/16 15:44 07/31/16 22:12 10 MG Fentanyl (Duragesic Patch) 12 mcg Q3D@2100 TD 07/30/16 23:30 08/13/16 23:29 07/30/16 23:29 12 MCG Miscellaneous (Fentanyl Patch Remove & Waste) 1 ea Q3D@2059 N/A 08/02/16 20:59 09/01/16 20:58 Miscellaneous Information (Check Fentanyl Patch Placement) 1 ea QS N/A 07/31/16 08:00 08/30/16 07:59 07/31/16 23:56 1 EA Insulin Glargine (Lantus Solostar Pen) 5 unit BID SC 08/01/16 09:00 08/31/16 08:59 Last 24 Hours Test 07/31/16 08:37 07/31/16 12:20 07/31/16 16:30 07/31/16 20:45 Bedside Glucose 139 mg/dl 158 mg/dl 206 mg/dl 118 mg/dl Test 08/01/16 05:39 Sodium Level 141 mmol/L Potassium Level 3.8 mmol/L Chloride Level 109 mmol/L Carbon Dioxide Level 23 mmol/L Anion Gap 9.0 mmol/L Blood Urea Nitrogen 23 mg/dl Creatinine 1.80 mg/dl Est Creatinine Clear Calc Drug Dose 46.7 ml/min Estimated GFR () 51.5 Estimated GFR (Non- 44.5 BUN/Creatinine Ratio 12.7 Random Glucose 225 mg/dl Calcium Level 7.8 mg/dl Assessment & Plan YCO-ehw-jbqswiym-atn-creatinine peaked at 2.4 and trending down. on iv fluids. would like to stop the iv fluids today and ok from renal perspective to go home. would recommend repeating bmp in a week. creatinine down to 1.8. not yet back to baseline but hopeful it will continue to trend down.
[2016-08-01] MEDS: METOCLOPRAMIDE HCL 5 MG TAB PO SCH ×2 (08:00→13:25)
[2016-08-01] MEDS: CHECK FENTANYL PATCH PLACEMENT SCH (08:00)
[2016-08-01] MEDS ORDERED: INSULIN GLARGINE SOLOSTAR 100 UNITS/ML 3 ML PEN SC SCH (09:00)
[2016-08-01] MEDS: ONDANSETRON INJ 2 MG/ML 2 ML VIAL IV PRN (09:06)
[2016-08-01] MEDS: HYDROmorphone INJ 1 MG/ML SYR IV PRN (09:07)
[2016-08-01] MEDS: INSULIN ASPART 100 UNITS/ML 3 ML PEN SC SCH ×2 (09:25→13:30)
[2016-08-01] MEDS: URSODIOL 300 MG CAP PO SCH (10:46)
[2016-08-01] MEDS: CARVEDILOL 25 MG TAB PO SCH (10:47)
[2016-08-01] MEDS: PANTOprazole SOD 40 MG TAB PO SCH (10:47)
[2016-08-01] MEDS: ASPIRIN 81 MG ECTAB PO SCH (10:47)
[2016-08-01] MEDS: SERTRALINE HCL 50 MG TAB PO SCH (10:48)
[2016-08-01] MEDS: EZETIMIBE 10MG TAB PO SCH (10:48)
[2016-08-01] MEDS: CLOPIDOGREL BISULFATE 75 MG TAB PO SCH (10:48)
--- NOTE | 2016-08-01 15:21 | Progress Note ---
Medicine Progress Note Date & Time of Visit: Aug 01, 2016 at 15:09. Subjective Pt was seen and examined Pt sitting in bed comfortable with no distress tolerated regular diet he felt nauseated early this morning but now feels good denies any chest pain, palpitation, chest pain and abdominal pain Objective Physical Exam: General- No acute distress Head- atraumatic Eyes- PERRL, EOMI ENT- oropharynx clear Neck- supple, no JVD Lungs- clear to auscultation and percussion Heart- regular rhythm Abdomen- normal bowel sounds, soft Extremities- no calf tenderness Neuro- alert, oriented, PERRL, EOMI; no facial palsy; no dysarthria Skin- warm & dry Laboratory Results: Last 24 Hours Test 07/31/16 16:30 07/31/16 20:45 08/01/16 05:39 08/01/16 08:11 Bedside Glucose 206 mg/dl 118 mg/dl 253 mg/dl Sodium Level 141 mmol/L Potassium Level 3.8 mmol/L Chloride Level 109 mmol/L Carbon Dioxide Level 23 mmol/L Anion Gap 9.0 mmol/L Blood Urea Nitrogen 23 mg/dl Creatinine 1.80 mg/dl Est Creatinine Clear Calc Drug Dose 46.7 ml/min Estimated GFR () 51.5 Estimated GFR (Non- 44.5 BUN/Creatinine Ratio 12.7 Random Glucose 225 mg/dl Calcium Level 7.8 mg/dl Test 08/01/16 11:55 Bedside Glucose 177 mg/dl Assessment & Plan INTRACTABLE NAUSEA/VOMITING Multiple admission for n/v and abdominal plain Possible related to gastroparesis vs cholelithiasis CT abd/pelvis from [facility] + stable bilateral pleural effusions and cholelithiasis U/S of the gallbladder showed the gallbladder is filled with sludge and multiple tiny stones. No gallbladder wall thickening. Case discussed with Trudy WILLIS that suggested to continue current management with Phenergan and Zofran Neuro consult placed for clearance for cholecystectomy since pt has a recent CVA on 04/30. Clinically stable. Pt will wait after the 6 months window to get the surgery done since his risk drop to get another stroke Neuro discussed the risks with pt for recurrent stroke after odds ratio for adverse event of surgery after stroke 0-3 months 14. 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 Nephro on board, from their standpoint pt is stable to discharge Will Need to check BMP in week. Avoid nephrotoxic agents ELEVATED TROPONIN Possible related to acute on chronic CKD Denies any chest pain EKG showed no significant ST changes Stable HTN BP elevated Continue holding lasix, lisinopril and aldactone will add hydralazine prn Continue monitor BP closely DYSLIPIDEMIA -cont Zetia CAD S/P CABG -stable -continue ASA, Plavix, Coreg and lisinopril -pt currently denies anginal sxs H/O CVA -cont Aspirin/Plavix Neurology consulted for surgical clearance DEPRESSION -cont Zoloft H/O PFO -per record DVT PROPHYLAXIS: -subq heparin CODE STATUS FULL CODE DISPOSITION Please follow up with your primary care provider Dr. Napier on aug 06 at 12:50 pm Need referral to pain management Continue follow up with [facility]: [facility] Current Inpatient Medications: Current Inpatient Medications Medications (Trade) Dose Ordered Sig/Mer Route Start Time Stop Time Status Last Admin Dose Admin Heparin Sodium (Porcine) (Heparin Sq 5000 Unit/0.5ml) 5,000 unit Q8H SQ 07/28/16 22:00 08/27/16 21:59 08/01/16 13:30 5,000 UNIT Hydromorphone HCl 0.5 mg 0.5 mg Q3H PRN IV 07/28/16 21:15 08/11/16 21:14 08/01/16 09:07 0.5 MG Promethazine HCl/ Sodium Chloride (Phenergan Inj/ Nss 50ml) 50.5 ml @ 204 mls/hr Q6H PRN IV 07/28/16 21:15 08/27/16 21:14 07/29/16 07:20 204 MLS/HR Tramadol HCl (Ultram Tab) not relieved by tylenol @ Q6H PRN PO 07/28/16 21:15 08/27/16 21:14 07/30/16 06:23 50 MG Acetaminophen (Tylenol Tab) 650 mg Q4H PRN PO 07/28/16 21:30 08/27/16 21:29 Glucose (Glucose 40% Gel) 15-30 GRAMS 15 GRAMS... UD PRN PO 07/28/16 21:30 08/27/16 21:29 Glucose (Glucose Chew Tab) 4-8 Tablets 4 Tabl... UD PRN PO 07/28/16 21:30 08/27/16 21:29 Dextrose (Dextrose 50% 50ML Syringe) 25-50ML OF 50% DW IV FOR... UD PRN IV 07/28/16 21:30 08/27/16 21:29 Glucagon 1 mg 1 mg UD PRN SQ 07/28/16 21:30 08/27/16 21:29 Lorazepam/Syringe (Ativan Inj/ Syringe) 1 ml @ 1 mls/min Q4H PRN IV 07/28/16 21:30 08/27/16 21:29 Aspirin (Ecotrin Tab) 81 mg QAM PO 07/29/16 09:00 08/28/16 08:59 08/01/16 10:47 81 MG Carvedilol (Coreg Tab) 25 mg BID PO 07/29/16 09:00 08/28/16 08:59 08/01/16 10:47 25 MG Clopidogrel Bisulfate (plAVix TAB) 75 mg DAILY PO 07/29/16 09:00 08/28/16 08:59 08/01/16 10:48 75 MG EZETIMIBE (Zetia Tab) 10 mg DAILY PO 07/29/16 09:00 08/28/16 08:59 08/01/16 10:48 10 MG Metoclopramide HCl (Reglan Tab) 5 mg ACHS PO 07/29/16 08:00 08/28/16 07:59 08/01/16 13:25 5 MG Pantoprazole Sodium (Protonix Tab) 40 mg DAILY PO 07/29/16 09:00 08/28/16 08:59 08/01/16 10:47 40 MG Sertraline HCl (Zoloft Tab) 50 mg DAILY PO 07/29/16 09:00 08/28/16 08:59 08/01/16 10:48 50 MG Ursodiol (Actigall Cap) 300 mg BID PO 07/29/16 09:00 08/28/16 08:59 08/01/16 10:46 300 MG Miscellaneous (Iv Fluids Completed) 1 ea PRN PRN N/A 07/28/16 23:00 07/28/17 22:59 Ondansetron HCl (Zofran Inj) 4 mg Q4H PRN IV 07/29/16 13:15 08/28/16 13:14 08/01/16 09:06 4 MG Insulin Aspart (novoLOG ASPART) SLIDING SCALE If C... ACHS SC 07/29/16 17:15 08/28/16 17:14 08/01/16 13:30 5 UNITS Hydralazine HCl (HydrALAZINE INJ) 10 mg Q4 PRN IV. 07/29/16 15:45 08/28/16 15:44 07/31/16 22:12 10 MG Fentanyl (Duragesic Patch) 12 mcg Q3D@2100 TD 07/30/16 23:30 08/13/16 23:29 07/30/16 23:29 12 MCG Miscellaneous (Fentanyl Patch Remove & Waste) 1 ea Q3D@2059 N/A 08/02/16 20:59 09/01/16 20:58 Miscellaneous Information (Check Fentanyl Patch Placement) 1 ea QS N/A 07/31/16 08:00 08/30/16 07:59 08/01/16 08:00 1 EA Insulin Glargine (Lantus Solostar Pen) 5 unit BID SC 08/01/16 09:00 08/31/16 08:59 08/01/16 09:26 5 UNIT
[2016-08-01] MEDS ORDERED: OXYC1TAB3 PO (15:28)
[2016-08-01 15:43] VITALS: BP 170/95; PULSE 60; TEMP 36.7; O2SAT 97
--- NOTE | 2016-08-01 15:43 | Discharge Instructions ---
Discharge Instructions Admission Reason for Admission: Acute On Chronic Cholecystitis Discharge Discharge Diagnosis / Problem: Chronic back pain, Gastroporesis, ACUTE ON CHRONIC KIDNEY DISEASE STAGE 3 Discharge Goals Goal(s): Decrease discomfort, Improve function, Improve disease control Activity Recommendations Activity Limitations: resume your previous activity (as tolerated) . Instructions / Follow-Up Instructions / Follow-Up Please follow up with your primary care provider Dr. Napier on Aug 06 at 12:50 pm Need referral to pain management for his chronic back pain Continue follow up with Gastro Check BMP within 1 week to monitor your kidney function Continue to hold spironolactone, lasix, lisinopril for now Monitor your blood pressure closely Lab order written for blood work Script given for oxycodone for break through pain as needed and hold for lethargy and drowsiness Current Hospital Diet Patient's current hospital diet: AHA Diet (Heart Healthy), Diabetes Type 2 Diet Discharge Diet Recommended Diet: AHA Diet (Heart Healthy), Diabetes Type 2 Diet Pending Studies Studies pending at discharge: no Laboratory Results Hemoglobin A1c Test 05/17/16 07:20 Range/Units Estimated Average Glucose 203 mg/dl Hemoglobin A1c 8.7 H 4.5-5.6 % Medical Emergencies . Who to Call and When: Medical Emergencies: If at any time you feel your situation is an emergency, please call 911 immediately. . Non-Emergent Contact Non-Emergency issues call your: Primary Care Provider Call Non-Emergent contact if: you have any medication questions . . "Provider Documentation" section prepared by Terrance Mcrae. VTE Core Measure Inpt VTE Proph given/why not?: Unfractionated heparin SQ
[2016-08-01 15:56] VITALS: BP 170/95; PULSE 60; TEMP 36.7; O2SAT 97
[2016-08-02] MEDS ORDERED: FENTANYL PATCH REMOVE & WASTE SCH (20:59)
--- NOTE | 2016-08-03 21:35 | Discharge Summary ---
Discharge Summary Admission Date: Jul 28, 2016 at 17:13 Discharge Date: Aug 01, 2016 Discharge Disposition: Home Principal Diagnosis: INTRACTABLE NAUSEA/VOMITING Secondary Diagnoses/Problems: Acute On Chronic Cholecystitis Chronic back pain Gastroporesis ACUTE ON CHRONIC KIDNEY DISEASE STAGE 3 CHRONIC LUMBAR BACK PAIN Chronic systolic CHF CAD S/P CABG H/x CVA HTN Procedures: Patient Name: PHYLLIS MOLINA Unit Number: [id number] Dictated: 07/30/[id number] Transcribed: 07/30/161439 [facility] Printed Date/Time: [~ rep prt dt]/[~ rep prt tm] [~ rep ct labl] - [~ rep ct ivnm] [facility] [place] [place] [address] Dictated: 07/30/[id number] Transcribed: 07/30/161439 [facility] Printed Date/Time: [~ rep prt dt]/[~ rep prt tm] [~ rep ct labl] - [~ rep ct ivnm] RENAL ULTRASOUND HISTORY: Acute kidney injury with underlying nephrotic syndrome from dm/htn COMPARISON: Abdominal ultrasound 07/28/2016. FINDINGS: Right kidney: 13.2 cm. No hydronephrosis. Increase cortical echogenicity. Normal cortical thickness. Left kidney: 13.5 cm. No hydronephrosis. Increased cortical echogenicity. Normal cortical thickness. Bladder: The patient recently voided. Therefore, the bladder is not well-distended. Bladder wall thickening is likely due to the underdistention. The ureteral jets are not identified. Miscellaneous: Right pleural effusion. IMPRESSION: 1. Bilateral echogenic kidneys suggestive of medical renal disease. 2. No hydronephrosis. 3. Under distended bladder. 4. Right pleural effusion. Electronically signed by: Vishal Roberts M.D. 07/30/2016 2:42 PM Dictated Date/Time: 07/30/2016 2:40 PM ABDOMINAL ULTRASOUND, RIGHT UPPER QUADRANT HISTORY: Generalized abdominal pain.. COMPARISON: None. FINDINGS: Pancreas: The pancreatic head and tail are obscured by overlying bowel gas. The remaining portions of the pancreas are within normal limits. Liver: The liver is echogenic consistent with fatty change. Gallbladder: The gallbladder is filled with sludge and multiple tiny gallstones. No gallbladder wall thickening. CBD: 3 mm. Right kidney: Echogenic. No hydronephrosis. IMPRESSION: The gallbladder is filled with sludge and multiple tiny stones. No gallbladder wall thickening. Consultations: Gastro Neuro Medication Reconciliation New Medications: Oxycodone Immediate Rel Tab (Roxicodone Ir) 5 Mg Tab 5 MG PO Q8 PRN for for severe pain for 5 Days, #15 TAB Please hold for lethargy and drowsiness Continued Medications: Aspirin (Aspirin) 81 Mg Chw 1 TAB PO DAILY for 30 Days, #30 TAB 3 Refills Carvedilol (Coreg) 25 Mg Tab 1 TAB PO BID for 90 Days, #180 TAB 1 Refill Clopidogrel Bisulfate (Plavix) 75 Mg Tab 1 TAB PO DAILY for 90 Days, #90 TAB 1 Refill Docusate Sodium (Colace) 100 Mg Cap 1 CAP PO BID PRN for Constipation for 15 Days, #30 CAP Ezetimibe (Zetia) 10 Mg Tab 1 TAB PO DAILY for 30 Days, #30 TAB 5 Refills Fentanyl (Fentanyl) 12 Mcg Tdsy 12 MCG EXT UD 1 patch topically q 72 hours Furosemide (Lasix) 40 Mg Tab 1 TAB PO DAILY for 90 Days, #90 TAB 3 Refills Glipizide (Glipizide) 5 Mg Tab 5 MG PO DAILY Insulin Glulisine (Apidra) 100 Unit/Ml Inj 6 UNITS SC UD 6 units SC before breakfast and supper Insulin Glulisine (Apidra) 100 Unit/Ml Inj 5 UNITS SC UD Take 5 units SC before lunch Lisinopril (Lisinopril) 20 Mg Tab 40 MG PO DAILY Metoclopramide Hcl (Reglan) 5 Mg Tab 5 MG PO ACHS, TAB Ondansetron Odt (Zofran Odt) 8 Mg Soltab 8 MG SL Q6H PRN for Nausea for 30 Days, #120 TAB 3 Refills Pantoprazole Sodium (Protonix) 40 Mg Tab 40 MG PO DAILY, #30 TAB Sertraline (Zoloft) 50 Mg Tab 1 TAB PO DAILY for 30 Days, #30 TAB 2 Refills Spironolactone (Aldactone) 25 Mg Tab 1 TAB PO DAILY for 90 Days, #90 TAB 1 Refill Ursodiol (Actigall) 300 Mg Cap 300 MG PO BID, CAP Admission Information HPI (per Admitting provider): This is a 45 y/o male with PMHx of CAD s/p CABG, CVA on Plavix, Insulin- Dependent DM 2, HTN, Dyslipidemia and other problems as listed below is seen as a direct transfer from [facility] for intractable nausea and vomiting. Pt reports that last night he developed nausea and vomiting. He estimates he has vomited > 10 times today. He tried taking Zofran at home but could not keep it down. Sxs are assoc with lumber back pain. Pt denies any abdominal pain. Pt was seen today in the ED at [facility]. Labs reviewed were unremarkable. CT abd/pelvis + bilateral pleural effusions (stable from 07/04/16) and cholelithiasis. Pt has a history of intermittent nausea and vomiting over the past year. There is a suspected diagnosis of gastroparesis however, per records, patient refused a gastric emptying study. Patient also has symptomatic cholelithiasis. He was scheduled for cholecystectomy in the fall however the procedure was postponed due to acute CVA in April 2016. Pt has been on ASA and Plavix. He reports that his production control supervisor has cleared him for surgery however his pre-op neuro apt was scheduled for this . The ED tried to transfer the patient to [facility] as his production control supervisor and neurologist are there. There were no beds available until tomorrow therefore they opted to send patient here for admission as his construction equipment overhauler, Dr. Alvarado, is here at [facility]. Pt denies fever/chills, chest pain, palpitations, SOB, wheezing, abd pain, bowel or bladder issues, LE edema ,calf pain, lightheadedness/dizziness. Physical Exam (per Admitting): General Appearance: WD/WN, no apparent distress, + pertinent finding (Pt is laying in bed with sister at bedside ) Head: normocephalic, atraumatic Eyes: normal inspection ENT: hearing grossly normal Neck: supple Respiratory/Chest: chest non-tender, lungs clear, normal breath sounds, no respiratory distress Cardiovascular: regular rate, rhythm, no edema, no murmur Abdomen/GI: normal bowel sounds, non tender, soft Back: normal inspection Extremities/Musculoskelatal: normal inspection, no calf tenderness, no pedal edema Neurologic/Psych: alert, normal mood/affect, oriented x 3 Skin: normal color, warm/dry Hospital Course INTRACTABLE NAUSEA/VOMITING Multiple admission for n/v and abdominal plain Possible related to gastroparesis vs cholelithiasis CT abd/pelvis from RUBY Mg + stable bilateral pleural effusions and cholelithiasis U/S of the gallbladder showed the gallbladder is filled with sludge and multiple tiny stones. No gallbladder wall thickening. Case discussed with Trudy WILLIS that suggested to continue current management with Phenergan and Zofran Neuro consult placed for clearance for cholecystectomy since pt has a recent CVA on 04/30. Clinically stable. Pt will wait after the 6 months window to get the surgery done since his risk drop to get another stroke Neuro discussed the risks with pt for recurrent stroke after odds ratio for adverse event of surgery after stroke 0-3 months 14. 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 Nephro on board, from their standpoint pt is stable to discharge Will Need to check BMP in week. Avoid nephrotoxic agents ELEVATED TROPONIN Possible related to acute on chronic CKD Denies any chest pain EKG showed no significant ST changes Stable HTN BP elevated Continue holding lasix, lisinopril and aldactone will add hydralazine prn Continue monitor BP closely DYSLIPIDEMIA -cont Zetia CAD S/P CABG -stable -continue ASA, Plavix, Coreg and lisinopril -pt currently denies anginal sxs H/O CVA -cont Aspirin/Plavix Neurology consulted for surgical clearance DEPRESSION -cont Zoloft H/O PFO -per record DVT PROPHYLAXIS: -subq heparin CODE STATUS FULL CODE DISPOSITION Please follow up with your primary care provider Dr. Napier on aug 06 at 12:50 pm Need referral to pain management Continue follow up with Gastro Total time spent on discharge = 35 minutes This includes examination of the patient, discharge planning, medication reconciliation, and communication with other providers. Discharge Instructions Discharge Instructions Admission Reason for Admission: Acute On Chronic Cholecystitis Discharge Discharge Diagnosis / Problem: Chronic back pain, Gastroporesis, ACUTE ON CHRONIC KIDNEY DISEASE STAGE 3 Discharge Goals Goal(s): Decrease discomfort, Improve function, Improve disease control Activity Recommendations Activity Limitations: resume your previous activity (as tolerated) . Instructions / Follow-Up Instructions / Follow-Up Please follow up with your primary care provider Dr. Napier on Aug 06 at 12:50 pm Need referral to pain management for his chronic back pain Continue follow up with Gastro Check BMP within 1 week to monitor your kidney function Continue to hold spironolactone, lasix, lisinopril for now Monitor your blood pressure closely Lab order written for blood work Script given for oxycodone for break through pain as needed and hold for lethargy and drowsiness Current Hospital Diet Patient's current hospital diet: AHA Diet (Heart Healthy), Diabetes Type 2 Diet Discharge Diet Recommended Diet: AHA Diet (Heart Healthy), Diabetes Type 2 Diet Pending Studies Studies pending at discharge: no Laboratory Results Hemoglobin A1c Test 05/17/16 07:20 Range/Units Estimated Average Glucose 203 mg/dl Hemoglobin A1c 8.7 H 4.5-5.6 % Medical Emergencies . Who to Call and When: Medical Emergencies: If at any time you feel your situation is an emergency, please call 911 immediately. . Non-Emergent Contact Non-Emergency issues call your: Primary Care Provider Call Non-Emergent contact if: you have any medication questions . . "Provider Documentation" section prepared by Terrance Mrcae. VTE Core Measure Inpt VTE Proph given/why not?: Unfractionated heparin SQ Additional Copies To Tae Napier M.D.
[2016-08-04] MEDS ORDERED: GLC/500 PO (13:55)
== END 2016-08-01 16:20 | disposition home or self-care (01) ==
LOC: INTOOBSV 17:13 → C.MSW 17:13
PROVIDERS: ADMIT Internal Medicine; ATTEND Internal Medicine
DX: R11.2 Nausea with vomiting, unspecified (principal); K81.2 Acute cholecystitis with chronic cholecystitis; I13.0 Hypertensive heart and chronic kidney disease with heart failure and stage 1 through stage 4 chronic kidney disease, or unspecified chronic kidney disease; E11.43 Type 2 diabetes mellitus with diabetic autonomic (poly)neuropathy; D64.9 Anemia, unspecified; E11.40 Type 2 diabetes mellitus with diabetic neuropathy, unspecified; E11.319 Type 2 diabetes mellitus with unspecified diabetic retinopathy without macular edema; M54.5 Low back pain; N18.3 Chronic kidney disease, stage 3 (moderate); I50.22 Chronic systolic (congestive) heart failure; I25.5 Ischemic cardiomyopathy; N17.9 Acute kidney failure, unspecified; Q21.1 Atrial septal defect; I25.10 Atherosclerotic heart disease of native coronary artery without angina pectoris; F32.9 Major depressive disorder, single episode, unspecified; E78.5 Hyperlipidemia, unspecified; Z86.73 Personal history of transient ischemic attack (TIA), and cerebral infarction without residual deficits; Z79.82 Long term (current) use of aspirin; Z79.4 Long term (current) use of insulin; Z79.899 Other long term (current) drug therapy; Z79.891 Long term (current) use of opiate analgesic; Z79.02 Long term (current) use of antithrombotics/antiplatelets; Z95.1 Presence of aortocoronary bypass graft; Z83.3 Family history of diabetes mellitus; Z82.49 Family history of ischemic heart disease and other diseases of the circulatory system

== ENCOUNTER 2016-08-04 09:41 | Inpatient (IN) | payer OTHER ==
[~2016-08-04] VITALS: Ht 167.6 cm; Wt 70.5 kg
[2016-08-04] VITALS (10 sets, daily range): BP systolic 114–211; BP diastolic 71–116; PULSE 64–89; TEMP 36.6–36.9; O2SAT 90–95; BMI 25.1
[~2016-08-04 09:41] MED LIST changes: +DRGTP12 EXT; +INSUINJ5 SC; -METF500T PO; +METO1TAB54 PO; -NVLG; +OXYC1TAB3 PO; +URSO300C4 PO
[2016-08-04] MEDS ORDERED: CARVEDILOL 25 MG TAB PO ONE (12:30)
[2016-08-04] MEDS ORDERED: LISINOPRIL 40 MG TAB PO ONE (12:30)
[2016-08-04] MEDS ORDERED: ONDANSETRON 8MG OD TAB SL PRN (13:45)
[2016-08-04] MEDS ORDERED: ALUMINUM/MAGNESIUM/SIMETH (MAALOX MAX) 30 ML UDC PO PRN (13:45)
[2016-08-04] MEDS ORDERED: ACETAMINOPHEN 325 MG TAB PO PRN (13:45)
[2016-08-04] MEDS ORDERED: HYDROmorphone INJ 1 MG/ML SYR ONE (13:46)
[2016-08-04] MEDS ORDERED: ONDANSETRON 4MG OD TAB ONE ×2 (13:47→13:52)
[2016-08-04] MEDS ORDERED: GLC/500 PO (13:55)
[2016-08-04] MEDS: HydrALAZINE HCL 20 MG/ML VIAL IV. PRN (13:59)
[2016-08-04] MEDS ORDERED: GLUCAGON FOR INJ 1 MG VIAL SQ PRN (14:00)
[2016-08-04] MEDS ORDERED: DEXTROSE 50% 50 ML SYR IV PRN (14:00)
[2016-08-04] MEDS ORDERED: GLUCOSE 10 TABS/TUBE PO PRN (14:00)
[2016-08-04] MEDS ORDERED: GLUCOSE 40% GEL 15 GM TUBE PO PRN (14:00)
[2016-08-04] MEDS ORDERED: DOCUSATE SODIUM 100 MG CAP PO PRN (14:00)
[2016-08-04] MEDS: ONDANSETRON INJ 2 MG/ML 2 ML VIAL IV PRN ×2 (14:05→21:07)
[2016-08-04] MEDS: D5W AND NSS 1,000 ML IV SCH (14:22)
--- NOTE | 2016-08-04 14:31 | HISTORY & PHYSICAL EXAMINATION ---
DATE OF ADMISSION: 08/04/2016 CHIEF COMPLAINT: Intractable nausea, vomiting and abdominal pain. HISTORY OF PRESENT ILLNESS: This is a 45-year-old male with past medical history significant for diabetes, CAD status post CABG, nephrotic range proteinuria, hypertension, statin intolerance, history of bilateral pleural effusions, hyperlipidemia, chronic systolic heart failure, history of CVA due to embolism of precerebral artery, patent foramen ovale, history of calculus of gallbladder without cholecystitis, history of depression, history of GERD with esophagitis presents with intractable nausea and vomiting. The patient was here in the hospital in 07/28/2016 and discharged on 08/01/2016 for nausea, vomiting and found to have gallstones. Because the patient has a stroke in April 2016, it was advised to not get surgery done and wait for surgery for 6 months. His symptoms were controlled and he was discharged on ursodiol, but the patient went to the [facility] again with intractable nausea, vomiting and abdominal pain and back pain and he was transferred here. Says he gets the back pain whenever he has nausea, vomiting and abdominal pain Denies any fever, chills. Has some headaches. No blurred vision, no dizziness. No chest pain, no shortness of breath, no cough, not requesting pain medications. The patient says that he may be cannot wait for 6 months to get his surgery and he thinks to get surgery in this admission. ALLERGIES: MORPHINE, LIPITOR, ATORVASTATIN. PAST MEDICAL HISTORY: As mentioned above. PAST SURGICAL HISTORY: CABG, eye laser trabeculoplasty, upper GI endoscopy. MEDICATIONS: The patient is on spironolactone 25 mg p.o. daily, Zofran 8 mg p.o. q. 6 hours p.r.n., Duragesic patch 12.5 topically q. 72 hours, Reglan 5 mg a.c. and at bedtime, Zoloft 50 mg p.o. daily, Protonix 40 mg p.o. daily, Plavix 75 mg p.o. daily, insulin Glulisine 6 units before breakfast and supper and 5 units before lunch, ursodiol 300 mg p.o. b.i.d., Lasix 40 mg p.o. daily, lisinopril 40 mg p.o. daily, glipizide 5 mg p.o. daily, metformin 500 mg p.o. daily, Coreg 25 mg p.o. b.i.d., Zetia 10 mg p.o. daily, aspirin 81 mg p.o. daily, multivitamin 1 tablet p.o. daily. FAMILY HISTORY: Significant for father had diabetes, sudden cardiac at age of 43. Brother has Down syndrome. Daughter has congenital septal defect. SOCIAL HISTORY: Never smoked. Alcohol occasional alcohol, no drug use. REVIEW OF SYMPTOMS: As per HPI. Rest of review of systems negative. PHYSICAL EXAMINATION: GENERAL: The patient is of moderate built, not in distress. VITAL SIGNS: Temperature 36.9, pulse 82, respiratory rate 18, blood pressure 206/116 oxygen 93% room air. HEENT: No pallor, no icterus. NECK: No JVD, no neck masses, no carotid bruits. CARDIOVASCULAR: S1, S2 heard, regular rate and rhythm, no murmur, no gallop. RESPIRATORY SYSTEM: Clear to auscultation bilaterally. No wheezing. No crackles. ABDOMEN: Soft, bowel sounds present. Right upper quadrant tenderness present. No guarding or rigidity. No distention. CENTRAL NERVOUS SYSTEM: Cranial nerves II-XII grossly intact. Nonfocal. EXTREMITIES: No edema, no erythema. LABORATORY: Not done yet. ASSESSMENT AND PLAN: This is a 45-year-old male who presents with persistent intractable nausea, vomiting and abdominal pain. 1. Intractable nausea, vomiting, and abdominal pain radiating to the back, recently was in the hospital for gallstones and similar complaints, but surgery was deferred as the patient recently had stroke in April 2016 and neurology advised to wait for 6 months to get the surgery done but the patient is not getting better and he thinks h may not able to wait for long.. Will get labs. We will place him on IV pain medications, IV fluids, IV antiemetics, and consult GI and surgery for further recommendations. 2. History of coronary artery disease status post coronary artery bypass graft. Continue with aspirin, Plavix, beta vineet, Zetia. Currently stable. 3. History of chronic systolic heart failure. We do not have any recent echo, last echo was in 2008 which was unremarkable. We are holding his diuretics, Aldactone and Lasix, for poor oral intake.Monitor for volume overload. 4. Recent acute renal failure. We will follow the labs.. . Baseline creatinine around 1.4-1.5. We will follow the labs. We will hold the lisinopril and Lasix and Aldactone until we get the labs. 6. History of diabetes. Hold his home medications. We will place him on insulin-sliding scale and follow the blood sugars. 7. History of depression. Continue Zoloft. 8. Gastroesophageal reflux disease. Continue proton pump inhibitor. 9. Hyperlipidemia. Continue Zetia. 10. Deep vein thrombosis prophylaxis, sequential compression devices and TEDs for now. DISPOSITION: Monitor on medical floor. Expect to discharge home and follow with his family doctor. Level 1 full code. MTDD
[2016-08-04 15:02] LABS: BASO % 0.1 %; BASO ABS # 0.02 K/uL (0-0.2); COMPLETE YES; HEMATOCRIT 30.9 % (42-52); IG% 0.4 %; LYMPH % 12.5 %; LYMPH ABS # 1.73 K/uL (1.2-3.4); MEAN CELL VOLUME 83.5 fL (80-100); MEAN CORPUSCULAR HEMOGLOBIN 27.8 pg (25-34); MEAN CORPUSCULAR HGB CONC 33.3 g/dl (32-36); MEAN PLATELET VOLUME 10.9 fL (7.4-10.4); MONO % 6.7 %; NEUT % 80.3 %; PLATELET COUNT 312 K/uL (130-400); WHITE BLOOD COUNT 13.82 K/uL (4.8-10.8)
[2016-08-04 15:15] LABS: INR 1.1 (0.9-1.1); PARTIAL THROMBOPLASTIN RATIO 0.9; PROTHROMBIN TIME (PATIENT) 12.1 SECONDS (9.0-12.0)
[2016-08-04] MEDS: CHECK FENTANYL PATCH PLACEMENT SCH (15:21)
[2016-08-04] MEDS: FENTANYL 12 MCG/HR TDSY TD SCH (15:21)
[2016-08-04] MEDS: FENTANYL PATCH REMOVE & WASTE SCH (15:22)
[2016-08-04] MEDS: METOCLOPRAMIDE HCL INJ 5 MG/ML 2 ML VIAL IV. SCH ×2 (15:23→21:13)
--- NOTE | 2016-08-04 15:34 | Medical Consult ---
Consultation Date of Consultation: Aug 04, 2016. Attending Physician: Edvin Palacios MD History of Present Illness has been having abd pain, some RUQ , N/V for months- known gb sludge, stones 04/2016 stroke, on plavix- surgery delayed because of increased risk just d/c from hospital 08/01 with similar problem Family History Diabetes mellitus FH: heart disease Social History Smoking Status: Never Smoker Drug Use: none Marital Status: single Housing Status: lives with family Occupation Status: unemployed Allergies Coded Allergies: Morphine (Verified Allergy, Unknown, DELIRIUM, 05/16/16) Statins (Unverified Allergy, Unknown, GI SYMPTOMS, 05/16/16) Elevated liver enzymes Current Inpatient Medications Current Inpatient Medications Medications (Trade) Dose Ordered Sig/Mer Route Start Time Stop Time Status Last Admin Dose Admin Hydralazine HCl (HydrALAZINE INJ) 5 mg Q6 PRN IV. 08/04/16 12:30 09/03/16 12:29 08/04/16 13:59 5 MG Acetaminophen (Tylenol Tab) 650 mg Q4H PRN PO 08/04/16 13:45 09/03/16 13:44 Al Hydrox/Mg Hydrox/Simethicone (Maalox Max Susp) 15 ml Q4H PRN PO 08/04/16 13:45 09/03/16 13:44 Ondansetron HCl (Zofran Inj) 4 mg Q6H PRN IV 08/04/16 13:45 09/03/16 13:44 08/04/16 14:05 4 MG Aspirin (Aspirin Chew) 81 mg QAM PO 08/05/16 09:00 09/04/16 08:59 Carvedilol (Coreg Tab) 25 mg BID PO 08/04/16 21:00 09/03/16 20:59 Clopidogrel Bisulfate (plAVix TAB) 75 mg DAILY PO 08/05/16 09:00 09/04/16 08:59 Docusate Sodium (coLACE CAP) 100 mg BID PRN PO 08/04/16 14:00 09/03/16 13:59 EZETIMIBE (Zetia Tab) 10 mg DAILY PO 08/05/16 09:00 09/04/16 08:59 Fentanyl (Duragesic Patch) 12 mcg Q3D@1600 TD 08/04/16 16:00 08/18/16 15:59 Sertraline HCl (Zoloft Tab) 50 mg DAILY PO 08/05/16 09:00 09/04/16 08:59 Ursodiol 300 mg 300 mg BID PO 08/04/16 21:00 09/03/16 20:59 Dextrose/Sodium Chloride (D5W And Nss) 1,000 ml @ 80 mls/hr [id number] IV 08/04/16 13:45 09/03/16 13:44 08/04/16 14:22 80 MLS/HR Hydromorphone HCl (Dilaudid Inj) 1 mg Q3HWA PRN IV 08/04/16 13:45 08/18/16 13:44 Metoclopramide HCl (Reglan Inj) 5 mg TID IV. 08/04/16 14:00 09/03/16 13:59 Insulin Aspart (novoLOG ASPART) SLIDING SCALE G... ACHS SC 08/04/16 16:30 09/03/16 16:29 Glucose (Glucose 40% Gel) 15-30 GRAMS 15 GRAMS... UD PRN PO 08/04/16 14:00 09/03/16 13:59 Glucose (Glucose Chew Tab) 4-8 Tablets 4 Tabl... UD PRN PO 08/04/16 14:00 09/03/16 13:59 Dextrose (Dextrose 50% 50ML Syringe) 25-50ML OF 50% DW IV FOR... UD PRN IV 08/04/16 14:00 09/03/16 13:59 Glucagon 1 mg 1 mg UD PRN SQ 08/04/16 14:00 09/03/16 13:59 Pantoprazole Sodium/Syringe (Protonix Inj/ Syringe) 10 ml @ 5 mls/min DAILY@11 IV 08/05/16 11:00 09/04/16 10:59 Miscellaneous (Fentanyl Patch Remove & Waste) 1 ea Q3D@1559 N/A 08/04/16 15:59 09/03/16 15:58 Miscellaneous Information (Check Fentanyl Patch Placement) 1 ea QS N/A 08/04/16 16:00 09/03/16 15:59 Review of Systems Constitutional: + fatigue, + weakness, No chills, No fever ENT: No hearing loss Respiratory: No cough, No shortness of breath, No sputum Cardiovascular: No chest pain Abdomen: + nausea, + pain, + vomiting Musculoskeletal: No joint pain Genitourinary - Male: No dysuria Neurologic: + weakness Psychiatric: + depression symptoms Hematologic / Lymphatic: + abnormal bleeding/bruising (probably secondary to plavix) Integumentary: No rash Physical Exam Date Time Temp Pulse Resp B/P Pulse Ox O2 Delivery O2 Flow Rate FiO2 08/04/16 14:13 160/80 08/04/16 13:57 211/107 08/04/16 11:54 36.9 82 18 206/116 93 Room Air 08/04/16 11:43 93 Room Air General Appearance: + mild distress (nausea/ vomiting) Head: atraumatic Eyes: sclerae normal Neck: supple Respiratory/Chest: no respiratory distress Cardiovascular: regular rate, rhythm Abdomen/GI: normal bowel sounds, non tender (may have slight pain to deep palpation - upper abd), soft Extremities/Musculoskelatal: no pedal edema Skin: warm/dry, no rash Laboratory Results Last 24 Hours Test 08/04/16 14:50 White Blood Count 13.82 K/uL Red Blood Count 3.70 M/uL Hemoglobin 10.3 g/dL Hematocrit 30.9 % Mean Corpuscular Volume 83.5 fL Mean Corpuscular Hemoglobin 27.8 pg Mean Corpuscular Hemoglobin Concent 33.3 g/dl Platelet Count 312 K/uL Mean Platelet Volume 10.9 fL Neutrophils (%) (Auto) 80.3 % Lymphocytes (%) (Auto) 12.5 % Monocytes (%) (Auto) 6.7 % Eosinophils (%) (Auto) 0.0 % Basophils (%) (Auto) 0.1 % Neutrophils # (Auto) 11.09 K/uL Lymphocytes # (Auto) 1.73 K/uL Monocytes # (Auto) 0.93 K/uL Eosinophils # (Auto) 0.00 K/uL Basophils # (Auto) 0.02 K/uL RDW Standard Deviation 46.9 fL RDW Coefficient of Variation 15.3 % Immature Granulocyte % (Auto) 0.4 % Immature Granulocyte # (Auto) 0.05 K/uL Prothrombin Time 12.1 SECONDS Prothromb Time International Ratio 1.1 Activated Partial Thromboplast Time 24.5 SECONDS Partial Thromboplastin Ratio 0.9 Assessment & Plan 08/04/16- adm with recurrent abd pain, nausea, vomitting with sludge / stones w/ n gb- normally would proceed with cholecystectomy- h/o stroke, plavix, cardiac hx- recent elev of troponin all concerning. Doubt he has severe acute necrotizing dz- If cleared medically and can stop Plavix would consider lap stu. Normally try to stop plavix 1 week unless life threatening problem. Check Hida. anesthesia consult
--- NOTE | 2016-08-04 15:38 | Gastrointestinal Consultation ---
Gastrointestinal Consultation Date of Consultation: Aug 04, 2016 Consulting Physician: Asaf Reason for Consultation: abdominal pain, n/v History of Present Illness Patient is a 45 year old male with past medical history of CVA 2016 on ASA/ Plavix, DMT2, HTN, CAD s/p CABG, hx of PFO and cholelithiasis with ongoing n/v. He was recently admitted in July for evaluation of n/v. He was scheduled to have cholecystectomy and EUS as an outpatient but this was delayed because of his stroke. It was suggested that he waits 6 month for non-emergent procedures. He was doing okay since discharge and was using PO Reglan, ursodiol and Zofran as needed. He reports that he began developing persisting nausea and vomiting and was admitted to [facility]. GI is consulted for evaluating of n/v. He reports that he feels much better since getting IV Zofran. He reports that surgery was just in to see him but he is unsure how they will proceed. Gallbladder US 08/01: The liver is echogenic consistent with fatty change. The gallbladder is filled with sludge and multiple tiny gallstones. No gallbladder wall thickening. Family History Diabetes mellitus FH: heart disease Social History Smoking Status: Never Smoker Alcohol Use: none Drug Use: none Marital Status: single Housing Status: lives with family Occupation Status: unemployed Allergies Coded Allergies: Morphine (Verified Allergy, Unknown, DELIRIUM, 05/16/16) Statins (Unverified Allergy, Unknown, GI SYMPTOMS, 05/16/16) Elevated liver enzymes Current Medications Home Meds and Scripts Medications Dose Route/Sig Max Daily Dose Days Date Category Dose Instructions Glucophage (Metformin Hcl) 500 Mg Tab 500 Mg PO DAILY 30 08/04/16 Rx Roxicodone Ir (Oxycodone HCl) 5 Mg Tab 5 Mg PO Q8 PRN 5 08/01/16 Rx Please hold for lethargy and drowsiness Actigall (Ursodiol) 300 Mg Cap 300 Mg PO BID 07/28/16 Reported Apidra (Insulin Glulisine) 100 Unit/Ml Inj 5 Units SC UD 07/28/16 Reported Take 5 units SC before lunch Apidra (Insulin Glulisine) 100 Unit/Ml Inj 6 Units SC UD 07/28/16 Reported 6 units SC before breakfast and supper Reglan (Metoclopramide Hcl) 5 Mg Tab 5 Mg PO ACHS 07/28/16 Reported Fentanyl 12 Mcg Tdsy 12 Mcg EXT UD 07/28/16 Reported 1 patch topically q 72 hours Zofran Odt (Ondansetron HCl) 8 Mg Soltab 8 Mg SL Q6H PRN 30 05/17/16 Rx Aldactone (Spironolactone) 25 Mg Tab 1 Tab PO DAILY 90 05/16/16 Reported Zoloft (Sertraline HCl) 50 Mg Tab 1 Tab PO DAILY 30 05/16/16 Reported Protonix (Pantoprazole Sodium) 40 Mg Tab 40 Mg PO DAILY 05/16/16 Reported Lisinopril 20 Mg Tab 40 Mg PO DAILY 05/16/16 Reported Glipizide 5 Mg Tab 5 Mg PO DAILY 05/16/16 Reported Lasix (Furosemide) 40 Mg Tab 1 Tab PO DAILY 90 05/16/16 Reported Zetia (Ezetimibe) 10 Mg Tab 1 Tab PO DAILY 30 05/16/16 Reported Colace (Docusate Sodium) 100 Mg Cap 1 Cap PO BID PRN 15 05/16/16 Reported Plavix (Clopidogrel Bisulfate) 75 Mg Tab 1 Tab PO DAILY 90 05/16/16 Reported Coreg (Carvedilol) 25 Mg Tab 1 Tab PO BID 90 05/16/16 Reported Aspirin 81 Mg Chw 1 Tab PO DAILY 30 05/16/16 Reported Review of Systems Constitutional: No chills, No fever Respiratory: No cough, No shortness of breath Cardiac: No chest pain, No edema Abdomen: + nausea, + pain, + vomiting, No GI bleeding, No constipation, No diarrhea Physical Exam Date Time Temp Pulse Resp B/P Pulse Ox O2 Delivery O2 Flow Rate FiO2 08/04/16 14:13 160/80 08/04/16 13:57 211/107 08/04/16 11:54 36.9 82 18 206/116 93 Room Air 08/04/16 11:43 93 Room Air General Appearance: no apparent distress Eyes: PERRL ENT: hearing grossly normal Neck: supple, trachea midline Respiratory/Chest: lungs clear, normal breath sounds, no respiratory distress, no accessory muscle use Cardiovascular: regular rate, rhythm, no edema, no gallop, no JVD, no murmur Abdomen: normal bowel sounds, soft, no organomegaly, + tenderness (RUQ and epigastric tenderness with palpation) Neurologic/Psych: alert, normal mood/affect, oriented x 3 Skin: normal color, no jaundice, warm/dry Laboratory Results Last 24 Hours Test 08/04/16 14:50 White Blood Count 13.82 K/uL Red Blood Count 3.70 M/uL Hemoglobin 10.3 g/dL Hematocrit 30.9 % Mean Corpuscular Volume 83.5 fL Mean Corpuscular Hemoglobin 27.8 pg Mean Corpuscular Hemoglobin Concent 33.3 g/dl Platelet Count 312 K/uL Mean Platelet Volume 10.9 fL Neutrophils (%) (Auto) 80.3 % Lymphocytes (%) (Auto) 12.5 % Monocytes (%) (Auto) 6.7 % Eosinophils (%) (Auto) 0.0 % Basophils (%) (Auto) 0.1 % Neutrophils # (Auto) 11.09 K/uL Lymphocytes # (Auto) 1.73 K/uL Monocytes # (Auto) 0.93 K/uL Eosinophils # (Auto) 0.00 K/uL Basophils # (Auto) 0.02 K/uL RDW Standard Deviation 46.9 fL RDW Coefficient of Variation 15.3 % Immature Granulocyte % (Auto) 0.4 % Immature Granulocyte # (Auto) 0.05 K/uL Prothrombin Time 12.1 SECONDS Prothromb Time International Ratio 1.1 Activated Partial Thromboplast Time 24.5 SECONDS Partial Thromboplastin Ratio 0.9 Impression Patient is a 45 year old male with persisting nausea and vomiting. He is also experiencing abdominal pain radiating to his back. Differentials include pancreatitis (labs pending) symptomatic cholelithiasis and gastroparesis Plan IV Zofran PRN Reglan 5mg AC and HS ursodiol 300 BID PPI daily IVF IV pain medications PRN follow up labs appreciate surgery input
[2016-08-04 15:52] LABS: BUN/CREATININE RATIO 16.8 (10-20); CALCIUM 8.1 mg/dl (8.5-10.1); CREATININE 1.4 mg/dl (0.60-1.40); MAGNESIUM 1.9 mg/dl (1.8-2.4); POTASSIUM 3.8 mmol/L (3.5-5.1)
[2016-08-04 16:03] LABS: ALB/GLOB RATIO 0.7 (0.9-2)
--- NOTE | 2016-08-04 16:22 | DIAGNOSTIC IMAGING REPORT ---
LUMBAR SPINE 2 OR 3 VIEWS CLINICAL HISTORY: back pain COMPARISON STUDY: None. FINDINGS: No fracture or subluxation. Minimal disc space narrowing at L5-S1. Remaining disc spaces are preserved. IMPRESSION: Minimal degenerative disc disease at L5-S1. No fractures within the lumbar spine. Electronically signed by: Vishal Roberts M.D. 08/04/2016 4:21 PM Dictated Date/Time: 08/04/2016 4:19 PM
--- NOTE | 2016-08-04 16:24 | DIAGNOSTIC IMAGING REPORT ---
THORACIC SPINE 2-VIEWS CLINICAL HISTORY: back pain COMPARISON STUDY: None. FINDINGS: There are poststernotomy changes. No fracture or subluxation within the thoracic spine. Paraspinal soft tissues are unremarkable. Question of a left retrocardiac opacity. Minimal disc space narrowing and a few endplate osteophytes within the mid to lower thoracic spine. IMPRESSION: 1. No fracture or subluxation within the thoracic spine. 2. Minimal degenerative disc disease. 3. Question of a left retrocardiac patchy. Recommend dedicated chest x-ray for further evaluation and to exclude a developing pneumonia. Electronically signed by: Vishal Roberts M.D. 08/04/2016 4:23 PM Dictated Date/Time: 08/04/2016 4:21 PM
[2016-08-04] MEDS: HYDROmorphone INJ 1 MG/ML SYR IV PRN ×2 (17:50→21:23)
[2016-08-04] MEDS: INSULIN ASPART 100 UNITS/ML 3 ML PEN SC SCH ×2 (19:20→21:30)
--- NOTE | 2016-08-04 20:51 | DIAGNOSTIC IMAGING REPORT ---
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 Trace pleural fluid right base. Lungs otherwise appear clear. IMPRESSION: Small parenchymal infiltrate medial left base. Trace pleural effusion right base laterally Electronically signed by: Gagandeep Rodriguez M.D. 08/04/2016 8:49 PM Dictated Date/Time: 08/04/2016 8:49 PM
[2016-08-04] MEDS: URSODIOL 300 MG CAP PO SCH (21:14)
[2016-08-04] MEDS: CARVEDILOL 25 MG TAB PO SCH (21:15)
[2016-08-05] MEDS: CHECK FENTANYL PATCH PLACEMENT SCH ×3 (00:56→16:06)
[2016-08-05] MEDS: D5W AND NSS 1,000 ML IV SCH ×2 (01:02→13:39)
[2016-08-05] MEDS ORDERED: NURSING DECISION MEDICATION ORDER SCH (01:15)
[2016-08-05] MEDS: INSULIN ASPART 100 UNITS/ML 3 ML PEN SC SCH ×3 (06:15→18:59)
--- NOTE | 2016-08-05 06:36 | Surgery Progress Note ---
Surgery Progress Note Date of Service Aug 05, 2016. Subjective Nurse says pt did not complain all night and prior to that- back pain vss, he is alert , responsive Objective Vital Signs: Date Time Temp Pulse Resp B/P Pulse Ox O2 Delivery O2 Flow Rate FiO2 08/05/16 01:00 Room Air 08/04/16 23:47 36.6 64 16 118/74 91 Room Air 08/04/16 21:56 114/71 08/04/16 21:56 125/73 08/04/16 21:28 188/100 08/04/16 21:15 89 189/101 08/04/16 19:12 Room Air 08/04/16 17:00 36.7 81 18 136/90 95 Room Air 08/04/16 15:43 36.9 82 18 145/82 90 08/04/16 14:13 160/80 08/04/16 13:57 211/107 08/04/16 11:54 36.9 82 18 206/116 93 Room Air 08/04/16 11:43 93 Room Air General Appearance: no apparent distress Respiratory/Chest: no respiratory distress Abdomen: soft Laboratory Results: Results Past 24 Hours Test 08/04/16 14:50 08/04/16 17:20 08/04/16 21:25 08/05/16 04:44 Range/Units White Blood Count 13.82 4.8-10.8 K/uL Red Blood Count 3.70 4.7-6.1 M/uL Hemoglobin 10.3 14.0-18.0 g/dL Hematocrit 30.9 42-52 % Mean Corpuscular Volume 83.5 80-100 fL Mean Corpuscular Hemoglobin 27.8 25-34 pg Mean Corpuscular Hemoglobin Concent 33.3 32-36 g/dl Platelet Count 312 130-400 K/uL Mean Platelet Volume 10.9 7.4-10.4 fL Neutrophils (%) (Auto) 80.3 % Lymphocytes (%) (Auto) 12.5 % Monocytes (%) (Auto) 6.7 % Eosinophils (%) (Auto) 0.0 % Basophils (%) (Auto) 0.1 % Neutrophils # (Auto) 11.09 1.4-6.5 K/uL Lymphocytes # (Auto) 1.73 1.2-3.4 K/uL Monocytes # (Auto) 0.93 0.11-0.59 K/uL Eosinophils # (Auto) 0.00 0-0.5 K/uL Basophils # (Auto) 0.02 0-0.2 K/uL RDW Standard Deviation 46.9 36.4-46.3 fL RDW Coefficient of Variation 15.3 11.5-14.5 % Immature Granulocyte % (Auto) 0.4 % Immature Granulocyte # (Auto) 0.05 0.00-0.02 K/uL Prothrombin Time 12.1 9.0-12.0 SECONDS Prothromb Time International Ratio 1.1 0.9-1.1 Activated Partial Thromboplast Time 24.5 21.0-31.0 SECONDS Partial Thromboplastin Ratio 0.9 Sodium Level 145 136-145 mmol/L Potassium Level 3.8 3.5-5.1 mmol/L Chloride Level 112 98-107 mmol/L Carbon Dioxide Level 23 21-32 mmol/L Anion Gap 10.0 3-11 mmol/L Blood Urea Nitrogen 23 7-18 mg/dl Creatinine 1.40 0.60-1.40 mg/dl Est Creatinine Clear Calc Drug Dose 60.1 ml/min Estimated GFR () 69.8 Estimated GFR (Non- 60.3 BUN/Creatinine Ratio 16.8 10-20 Random Glucose 201 70-99 mg/dl Calcium Level 8.1 8.5-10.1 mg/dl Magnesium Level 1.9 1.8-2.4 mg/dl Total Bilirubin 0.4 0.2-1 mg/dl Aspartate Amino Transf (AST/SGOT) 35 15-37 U/L Alanine Aminotransferase (ALT/SGPT) 23 12-78 U/L Alkaline Phosphatase 67 45-117 U/L Total Protein 5.4 6.4-8.2 gm/dl Albumin 2.3 3.4-5.0 gm/dl Globulin 3.1 2.5-4.0 gm/dl Albumin/Globulin Ratio 0.7 0.9-2 Lipase 62 73-393 U/L Bedside Glucose 179 205 70-99 mg/dl Assessment & Plan 08/05/16- doudt all sxs are from gallbladder- Hida scan ordered. Anesthesia very concerned about pts h/o stroke and heart disease. Pt is not in life threatening situation requiring cholecystectomy Cont w/u Neuro, cardiac, GI - no plan for urgent surgery-
[2016-08-05 07:35] LABS: BASO % 0.3 %; BASO ABS # 0.03 K/uL (0-0.2); COMPLETE YES; EOS % 0.4 %; HEMATOCRIT 29.7 % (42-52); IG% 0.2 %; LYMPH % 26.4 %; LYMPH ABS # 2.68 K/uL (1.2-3.4); MEAN CELL VOLUME 86.8 fL (80-100); MEAN CORPUSCULAR HEMOGLOBIN 27.8 pg (25-34); MEAN PLATELET VOLUME 11.1 fL (7.4-10.4); MONO % 8.4 %; NEUT % 64.3 %; PLATELET COUNT 283 K/uL (130-400); RED BLOOD COUNT 3.42 M/uL (4.7-6.1); WHITE BLOOD COUNT 10.17 K/uL (4.8-10.8)
[2016-08-05 07:40] VITALS: BP 180/89; PULSE 70; TEMP 36.6; O2SAT 90
[2016-08-05 08:04] LABS: BUN/CREATININE RATIO 15.6 (10-20); CALCIUM 7.9 mg/dl (8.5-10.1); CREATININE 1.7 mg/dl (0.60-1.40); MAGNESIUM 1.9 mg/dl (1.8-2.4); POTASSIUM 3.5 mmol/L (3.5-5.1)
[2016-08-05] MEDS: URSODIOL 300 MG CAP PO SCH ×2 (09:00→21:39)
[2016-08-05] MEDS: ASPIRIN 81 MG CHEW PO SCH (09:00)
[2016-08-05] MEDS: EZETIMIBE 10MG TAB PO SCH (09:00)
--- NOTE | 2016-08-05 09:06 | DIAGNOSTIC IMAGING REPORT ---
NUCLEAR MEDICINE HEPATOBILIARY SCAN CLINICAL HISTORY: Abdominal pain. Intractable nausea and vomiting. COMPARISON: Right upper quadrant ultrasound July 28, 2016. TECHNIQUE: 5.1 mCi of technetium 99m Choletec IV was injected at 8:15 AM on August 05, 2016. Immediately following injection, imaging of the abdomen was carried out for 35 minutes minutes in the anterior projection. The patient was unable to lay supine and therefore static images were obtained. FINDINGS: Hepatic uptake of radiotracer is prompt and homogeneous. Activity is first identified within the common bile duct at 10 minutes. Small bowel activity is first identified at 15 minutes. Gallbladder activity is identified at 35 minutes. IMPRESSION: No evidence of acute cholecystitis. Electronically signed by: Nazario Denton M.D. 08/05/2016 9:05 AM Dictated Date/Time: 08/05/2016 9:02 AM
[2016-08-05 09:11] LABS: ESTIMATED AVERAGE GLUCOSE 194 mg/dl; HA1C FLAG Normal (Normal)
[2016-08-05] MEDS: METOCLOPRAMIDE HCL INJ 5 MG/ML 2 ML VIAL IV. SCH ×3 (09:14→21:43)
[2016-08-05] MEDS: HYDROmorphone INJ 1 MG/ML SYR IV PRN ×2 (09:18→18:39)
[2016-08-05] MEDS: HydrALAZINE HCL 20 MG/ML VIAL IV. PRN (09:19)
[2016-08-05] MEDS: LISINOPRIL 20 MG TAB PO SCH (10:31)
[2016-08-05] MEDS: SERTRALINE HCL 50 MG TAB PO SCH (10:32)
[2016-08-05] MEDS: PANTOprazole INJ 40 MG in SYRINGE 0 ML IV SCH (10:32)
[2016-08-05] MEDS: CLOPIDOGREL BISULFATE 75 MG TAB PO SCH (10:32)
[2016-08-05] MEDS: CARVEDILOL 25 MG TAB PO SCH ×2 (10:32→21:38)
[2016-08-05 10:33] VITALS: BP 174/93
--- NOTE | 2016-08-05 11:29 | Gastroenterology Progress Note ---
Progress Note Date of Service: Aug 05, 2016 Subjective Pt evaluation today including: conversation w/ patient, physical exam, chart review, lab review Patient was seen and examined this morning. He reports that he is still experiencing nausea and vomiting. Last episode of emesis was this morning - he is unsure waht it looked like as he did not look. He is reporting RUQ pain that is radiating to his back. Currently the pain is constant, and dull. Pressure relieves the pain. He has not identified any triggers to this pain. No change in stooling. He is unable to tell me when his last BM was but reports that nothing was abnormal about this. No report of felipe colored stools, black/bloody BMs. Continues to be hypertensive. Today lipase pending, 07/17/16 lipase normal LFT normal HIDA Hepatic uptake of radiotracer is prompt and homogeneous. Activity is first identified within the common bile duct at 10 minutes. Small bowel activity is first identified at 15 minutes. Gallbladder activity is identified at 35 minutes. EGD 2016 with mild gastritis Review of Systems Constitutional: No chills, No fever Respiratory: No cough, No shortness of breath Cardiac: No chest pain, No edema Abdomen: + nausea, + pain, + vomiting, No GI bleeding, No constipation, No diarrhea Medications Current Inpatient Medications Medications (Trade) Dose Ordered Sig/Mer Route Start Time Stop Time Status Last Admin Dose Admin Hydralazine HCl (HydrALAZINE INJ) 5 mg Q6 PRN IV. 08/04/16 12:30 09/03/16 12:29 08/05/16 09:19 5 MG Acetaminophen (Tylenol Tab) 650 mg Q4H PRN PO 08/04/16 13:45 09/03/16 13:44 Al Hydrox/Mg Hydrox/Simethicone (Maalox Max Susp) 15 ml Q4H PRN PO 08/04/16 13:45 09/03/16 13:44 Ondansetron HCl (Zofran Inj) 4 mg Q6H PRN IV 08/04/16 13:45 09/03/16 13:44 08/04/16 21:07 4 MG Aspirin (Aspirin Chew) 81 mg QAM PO 08/05/16 09:00 09/04/16 08:59 Carvedilol (Coreg Tab) 25 mg BID PO 2/20/17 21:00 09/03/16 20:59 08/05/16 10:32 25 MG Clopidogrel Bisulfate (plAVix TAB) 75 mg DAILY PO 08/05/16 09:00 09/04/16 08:59 Docusate Sodium (coLACE CAP) 100 mg BID PRN PO 08/04/16 14:00 09/03/16 13:59 EZETIMIBE (Zetia Tab) 10 mg DAILY PO 08/05/16 09:00 09/04/16 08:59 Fentanyl (Duragesic Patch) 12 mcg Q3D@1600 TD 08/04/16 16:00 08/18/16 15:59 08/04/16 15:21 12 MCG Sertraline HCl (Zoloft Tab) 50 mg DAILY PO 08/05/16 09:00 09/04/16 08:59 Ursodiol 300 mg 300 mg BID PO 08/04/16 21:00 09/03/16 20:59 08/04/16 21:14 300 MG Dextrose/Sodium Chloride (D5W And Nss) 1,000 ml @ 80 mls/hr [id number] IV 08/04/16 13:45 09/03/16 13:44 08/05/16 01:02 80 MLS/HR Hydromorphone HCl (Dilaudid Inj) 1 mg Q3HWA PRN IV 08/04/16 13:45 08/18/16 13:44 08/05/16 09:18 1 MG Metoclopramide HCl (Reglan Inj) 5 mg TID IV. 08/04/16 14:00 09/03/16 13:59 08/05/16 09:14 5 MG Glucose (Glucose 40% Gel) 15-30 GRAMS 15 GRAMS... UD PRN PO 08/04/16 14:00 09/03/16 13:59 Glucose (Glucose Chew Tab) 4-8 Tablets 4 Tabl... UD PRN PO 08/04/16 14:00 09/03/16 13:59 Dextrose (Dextrose 50% 50ML Syringe) 25-50ML OF 50% DW IV FOR... UD PRN IV 08/04/16 14:00 09/03/16 13:59 Glucagon 1 mg 1 mg UD PRN SQ 08/04/16 14:00 09/03/16 13:59 Pantoprazole Sodium/Syringe (Protonix Inj/ Syringe) 10 ml @ 5 mls/min DAILY@11 IV 08/05/16 11:00 09/04/16 10:59 08/05/16 10:32 5 MLS/MIN Miscellaneous (Fentanyl Patch Remove & Waste) 1 ea Q3D@1559 N/A 08/04/16 15:59 09/03/16 15:58 Miscellaneous Information (Check Fentanyl Patch Placement) 1 ea QS N/A 08/04/16 16:00 09/03/16 15:59 08/05/16 07:36 1 EA Lisinopril (Zestril Tab) 40 mg DAILY PO 08/05/16 09:00 09/04/16 08:59 08/05/16 10:31 40 MG Insulin Aspart (novoLOG ASPART) SLIDING SCALE G... Q6 SC 08/05/16 06:00 09/04/16 05:59 08/05/16 06:15 1 UNITS Objective Vital Signs Date Time Temp Pulse Resp B/P Pulse Ox O2 Delivery O2 Flow Rate FiO2 08/05/16 10:33 174/93 08/05/16 07:40 Room Air 08/05/16 07:40 36.6 70 18 180/89 90 Room Air 08/05/16 01:00 Room Air 08/04/16 23:47 36.6 64 16 118/74 91 Room Air 08/04/16 21:56 114/71 08/04/16 21:56 125/73 08/04/16 21:28 188/100 08/04/16 21:15 89 189/101 08/04/16 19:12 Room Air 08/04/16 17:00 36.7 81 18 136/90 95 Room Air 08/04/16 15:43 36.9 82 18 145/82 90 08/04/16 14:13 160/80 08/04/16 13:57 211/107 08/04/16 11:54 36.9 82 18 206/116 93 Room Air 08/04/16 11:43 93 Room Air Physical Exam General Appearance: no apparent distress ENT: hearing grossly normal Neck: supple, trachea midline Respiratory/Chest: lungs clear Cardiovascular: regular rate, rhythm, no edema, no gallop, no JVD, no murmur Abdomen: normal bowel sounds, non tender, soft, no organomegaly, no pulsatile mass Neurologic/Psych: alert, normal mood/affect, oriented x 3 Skin: normal color, warm/dry, no rash Laboratory Results Last 24 Hours Test 08/04/16 14:50 08/04/16 17:20 08/04/16 21:25 08/05/16 01:11 White Blood Count 13.82 K/uL Red Blood Count 3.70 M/uL Hemoglobin 10.3 g/dL Hematocrit 30.9 % Mean Corpuscular Volume 83.5 fL Mean Corpuscular Hemoglobin 27.8 pg Mean Corpuscular Hemoglobin Concent 33.3 g/dl Platelet Count 312 K/uL Mean Platelet Volume 10.9 fL Neutrophils (%) (Auto) 80.3 % Lymphocytes (%) (Auto) 12.5 % Monocytes (%) (Auto) 6.7 % Eosinophils (%) (Auto) 0.0 % Basophils (%) (Auto) 0.1 % Neutrophils # (Auto) 11.09 K/uL Lymphocytes # (Auto) 1.73 K/uL Monocytes # (Auto) 0.93 K/uL Eosinophils # (Auto) 0.00 K/uL Basophils # (Auto) 0.02 K/uL RDW Standard Deviation 46.9 fL RDW Coefficient of Variation 15.3 % Immature Granulocyte % (Auto) 0.4 % Immature Granulocyte # (Auto) 0.05 K/uL Prothrombin Time 12.1 SECONDS Prothromb Time International Ratio 1.1 Activated Partial Thromboplast Time 24.5 SECONDS Partial Thromboplastin Ratio 0.9 Sodium Level 145 mmol/L Potassium Level 3.8 mmol/L Chloride Level 112 mmol/L Carbon Dioxide Level 23 mmol/L Anion Gap 10.0 mmol/L Blood Urea Nitrogen 23 mg/dl Creatinine 1.40 mg/dl Est Creatinine Clear Calc Drug Dose 60.1 ml/min Estimated GFR () 69.8 Estimated GFR (Non- 60.3 BUN/Creatinine Ratio 16.8 Random Glucose 201 mg/dl Calcium Level 8.1 mg/dl Magnesium Level 1.9 mg/dl Total Bilirubin 0.4 mg/dl Aspartate Amino Transf (AST/SGOT) 35 U/L Alanine Aminotransferase (ALT/SGPT) 23 U/L Alkaline Phosphatase 67 U/L Total Protein 5.4 gm/dl Albumin 2.3 gm/dl Globulin 3.1 gm/dl Albumin/Globulin Ratio 0.7 Lipase 62 U/L Bedside Glucose 179 mg/dl 205 mg/dl 181 mg/dl Test 08/05/16 06:01 08/05/16 07:12 Bedside Glucose 169 mg/dl White Blood Count 10.17 K/uL Red Blood Count 3.42 M/uL Hemoglobin 9.5 g/dL Hematocrit 29.7 % Mean Corpuscular Volume 86.8 fL Mean Corpuscular Hemoglobin 27.8 pg Mean Corpuscular Hemoglobin Concent 32.0 g/dl Platelet Count 283 K/uL Mean Platelet Volume 11.1 fL Neutrophils (%) (Auto) 64.3 % Lymphocytes (%) (Auto) 26.4 % Monocytes (%) (Auto) 8.4 % Eosinophils (%) (Auto) 0.4 % Basophils (%) (Auto) 0.3 % Neutrophils # (Auto) 6.55 K/uL Lymphocytes # (Auto) 2.68 K/uL Monocytes # (Auto) 0.85 K/uL Eosinophils # (Auto) 0.04 K/uL Basophils # (Auto) 0.03 K/uL RDW Standard Deviation 49.9 fL RDW Coefficient of Variation 15.6 % Immature Granulocyte % (Auto) 0.2 % Immature Granulocyte # (Auto) 0.02 K/uL Sodium Level 145 mmol/L Potassium Level 3.5 mmol/L Chloride Level 113 mmol/L Carbon Dioxide Level 20 mmol/L Anion Gap 12.0 mmol/L Blood Urea Nitrogen 27 mg/dl Creatinine 1.70 mg/dl Est Creatinine Clear Calc Drug Dose 49.5 ml/min Estimated GFR () 55.2 Estimated GFR (Non- 47.6 BUN/Creatinine Ratio 15.6 Random Glucose 173 mg/dl Estimated Average Glucose 194 mg/dl Hemoglobin A1c 8.4 % Calcium Level 7.9 mg/dl Magnesium Level 1.9 mg/dl Assessment and Plan Patient is a 45 year old male hypertensive male with persisting nausea and vomiting. He is also experiencing abdominal pain radiating to his back. Differentials include pancreatitis (labs pending) symptomatic cholelithiasis and gastroparesis Plan IV Zofran PRN Reglan 5mg AC and HS ursodiol 300 BID PPI BID IVF IV pain medications PRN follow up labs EUS for eval when anesthesia use is appropriate, August arias 3 months from [facility]A GI to sign off, please call with any questions.
--- NOTE | 2016-08-05 13:29 | DIAGNOSTIC IMAGING REPORT ---
Right upper quadrant ultrasound GALLBLADDER-ABD LIMITED CLINICAL HISTORY: sludge , stones gallstone TECHNIQUE: Ultrasound COMPARISON STUDY: 07/28/2016 FINDINGS: Gallstones and sludge within the gallbladder lumen. Normal caliber bile ducts. Common bile duct 4 mm. Fatty infiltration of liver. Pancreas and right kidney are unremarkable. IMPRESSION: Gallstones and sludge within the gallbladder lumen unchanged from the prior study. Normal caliber bile ducts. Electronically signed by: Gagandeep Rodriguez M.D. 08/05/2016 1:28 PM Dictated Date/Time: 08/05/2016 1:25 PM
[2016-08-05 14:07] VITALS: Ht 167.6 cm; Wt 70.5 kg
--- NOTE | 2016-08-05 15:45 | Progress Note ---
Internal Med Progress Note Date of Service: Aug 05, 2016. Provider Documentation: SUBJECTIVE : Patient is c/o abdominal pain -generalized, back pain, nausea No vomiting. No fever, chills, urinary symptoms. OBJECTIVE : Vital Signs-as noted below EXAM : GENERAL: Moderate built, Bit drowsy, oriented x 3. HEENT: No pallor, no icterus. NECK: No JVD, No carotid bruits. CARDIOVASCULAR: S1, S2 heard, Regular rate and rhythm, no murmur. RESPIRATORY SYSTEM: Clear to auscultation bilaterally. No wheezing. No crackles. ABDOMEN: Soft, bowel sounds present. Right upper quadrant tenderness present. No guarding or rigidity. No distention. CENTRAL NERVOUS SYSTEM: Grossly no focal deficits EXTREMITIES: No edema, no erythema. Lab data as noted below. ASSESSMENT & PLAN: ASSESSMENT AND PLAN: This is a 45-year-old male who presents with persistent intractable nausea, vomiting and abdominal pain. INTRACTABLE NAUSEA/VOMITING/ABDOMINAL PAIN: Two admissions since may 2016, Last discharge 08/01/2016- US GB- Gall stones/ sludge--> surgery was considered but given recent stroke in 04/30 and on plavix/ Aspirin it was decided to delay sx x 6 months at least. Comes back with similar symptoms- intractable nausea, vomiting, abdominal pain -Prior hx of gastroparesis (not confirmed by gastric emptying study as patient had refused) -Work up- US GB- Gall stones/Sludge, HIDA- No cholecystitis -GI/Surgery on board- Discussed with surgery who did discuss case with anaesthesia- very high risk due to recent stroke on plavix/aspirin, so as no urgent indication for surgery, would want to post pone it for at least 6 months -IV fluids/Pain mx/IV Reglan TID and IV Zofran PRN / Full liquid diet- advance as tolerated -Checked [place] drug monitoring [place]- No signs of drug abuse. JOSE MIGUEL ON CKD-III -Baseline : 14-1.5 -IV fluids. Hold lasix, aldactone -Monitor creatinine HX OF CAD S/P CABG -Stable with no acute cardiac symptoms -Continue with aspirin, Plavix, beta vineet, Zetia. HX OF CHRONIC SYSTOLIC CONGESTIVE HEART FAILURE -No signs of exacerbation -Held Diuretics/Aldactone and lasix as poor oral intake/JOSE MIGUEL DIABETES MELLITUS -Hold home meds -ISS, Accuchecks HX OF DEPRESSION -Continue zoloft GERD -Continue with PPPI HYPERLIPIDEMIA -Continue with zetia DVT PROPHYLAXIS -SCDS/TEDS DISPOSITION: Expected discharge home when stable Vital Signs: Date Time Temp Pulse Resp B/P Pulse Ox O2 Delivery O2 Flow Rate FiO2 08/05/16 10:33 174/93 08/05/16 07:40 Room Air 08/05/16 07:40 36.6 70 18 180/89 90 Room Air 08/05/16 01:00 Room Air 08/04/16 23:47 36.6 64 16 118/74 91 Room Air 08/04/16 21:56 114/71 08/04/16 21:56 125/73 08/04/16 21:28 188/100 08/04/16 21:15 89 189/101 08/04/16 19:12 Room Air 08/04/16 17:00 36.7 81 18 136/90 95 Room Air 08/04/16 15:43 36.9 82 18 145/82 90 Lab Results: Results Past 24 Hours Test 08/04/16 17:20 08/04/16 21:25 08/05/16 01:11 08/05/16 06:01 Range/Units Bedside Glucose 179 205 181 169 70-99 mg/dl Test 08/05/16 07:12 08/05/16 12:06 Range/Units White Blood Count 10.17 4.8-10.8 K/uL Red Blood Count 3.42 4.7-6.1 M/uL Hemoglobin 9.5 14.0-18.0 g/dL Hematocrit 29.7 42-52 % Mean Corpuscular Volume 86.8 80-100 fL Mean Corpuscular Hemoglobin 27.8 25-34 pg Mean Corpuscular Hemoglobin Concent 32.0 32-36 g/dl Platelet Count 283 130-400 K/uL Mean Platelet Volume 11.1 7.4-10.4 fL Neutrophils (%) (Auto) 64.3 % Lymphocytes (%) (Auto) 26.4 % Monocytes (%) (Auto) 8.4 % Eosinophils (%) (Auto) 0.4 % Basophils (%) (Auto) 0.3 % Neutrophils # (Auto) 6.55 1.4-6.5 K/uL Lymphocytes # (Auto) 2.68 1.2-3.4 K/uL Monocytes # (Auto) 0.85 0.11-0.59 K/uL Eosinophils # (Auto) 0.04 0-0.5 K/uL Basophils # (Auto) 0.03 0-0.2 K/uL RDW Standard Deviation 49.9 36.4-46.3 fL RDW Coefficient of Variation 15.6 11.5-14.5 % Immature Granulocyte % (Auto) 0.2 % Immature Granulocyte # (Auto) 0.02 0.00-0.02 K/uL Sodium Level 145 136-145 mmol/L Potassium Level 3.5 3.5-5.1 mmol/L Chloride Level 113 98-107 mmol/L Carbon Dioxide Level 20 21-32 mmol/L Anion Gap 12.0 3-11 mmol/L Blood Urea Nitrogen 27 7-18 mg/dl Creatinine 1.70 0.60-1.40 mg/dl Est Creatinine Clear Calc Drug Dose 49.5 ml/min Estimated GFR () 55.2 Estimated GFR (Non- 47.6 BUN/Creatinine Ratio 15.6 10-20 Random Glucose 173 70-99 mg/dl Estimated Average Glucose 194 mg/dl Hemoglobin A1c 8.4 4.5-5.6 % Calcium Level 7.9 8.5-10.1 mg/dl Magnesium Level 1.9 1.8-2.4 mg/dl Lipase 81 73-393 U/L Bedside Glucose 230 70-99 mg/dl
[2016-08-05 15:51] VITALS: BP 162/83; PULSE 72; TEMP 36.7; O2SAT 91
[2016-08-05] MEDS: ONDANSETRON INJ 2 MG/ML 2 ML VIAL IV PRN (18:37)
--- NOTE | 2016-08-05 21:30 | ECHOCARDIOGRAM REPORT ---
*NOTICE TO RECEIVING REPUBLICAN AGENCY This information is strictly Confidential and protected under [place] law. [place] law prohibits you from making any further disclosure of this information unless further disclosure is expressly permitted by the written consent of the person to whom it pertains or is authorized by law. A general authorization for the release of medical or other information is not sufficient for this purpose. Hospital accepts no responsibility if the information is made available to any other person, INCLUDING THE PATIENT. Interpretation Summary * Name: PHYLLIS MOLINA Study Date: 08/04/2016 03:29 PM BP: 145/82 mmHg * Patient Location: [facility]\S\N288\S\2 HR: 79 * : 1970 (M/d/yyyy) Gender: Male Height: 66 in * Age: 45 yrs Ethnicity: [place] Weight: 155 lb * Ordering Physician: Edvin Palacios * Referring Physician: No Doctor, Assigned * Performed By: Hiwot Allison RCS * * Reason For Study: CHF * BSA: 1.8 m2 * -- Conclusions -- * There is a small sized inferior wall motion abnormality with hypokinesis of the basal inferior segment. * Ejection Fraction = 55-60%. * There is mild concentric left ventricular hypertrophy. * Grade I diastolic dysfunction, (abnormal relaxation pattern). Procedure Details * A complete two-dimensional transthoracic echocardiogram was performed (2D, M-mode, Doppler and color flow Doppler). Left Ventricle * The left ventricle is normal in size. * There is mild concentric left ventricular hypertrophy. * Left ventricular systolic function is normal. * Ejection Fraction = 55-60%. * There is a small sized inferior wall motion abnormality with hypokinesis of the basal inferior segment. Right Ventricle * The right ventricle is normal size. * The right ventricular systolic function is normal as assessed by tricuspid annular plane systolic excursion (TAPSE) (normal >1.5 cm). Atria * The left atrial size is normal. * Right atrial size is normal. * A patent foramen ovale is present. Mitral Valve * The mitral valve is normal. * There is no mitral valve stenosis. * Significant mitral regurgitation is absent. Tricuspid Valve * The tricuspid valve is normal. * There is no tricuspid stenosis. * There is mild tricuspid regurgitation. * Doppler findings do not suggest pulmonary hypertension. Aortic Valve * The aortic valve is trileaflet. * Aortic stenosis is absent. * There is no significant aortic regurgitation. Pulmonic Valve * The pulmonary valve is not well seen, but the Doppler examination is normal without significant regurgitation or stenosis. Great Vessels * The aortic root and proximal ascending aorta are normal sized. Pericardium/Pleural * There is no pericardial effusion. Great Vessels * Normal inferior vena cava diameter and respiratory variation suggests normal central venous pressure. * Normal inferior vena cava size and collapsability with sniff indicates a normal right atrial pressure of 3 mmHg Left Ventricular Diastolic Function * Grade I diastolic dysfunction, (abnormal relaxation pattern). MMode 2D Measurements and Calculations IVSd 1.4 cm IVSs 2.1 cm LVIDd 3.6 cm LVIDs 2.8 cm LVPWd 1.4 cm LVPWs 1.8 cm IVS/LVPW 0.99 FS 21.5 % EDV(Teich) 54.2 ml ESV(Teich) 30.1 ml EF(Teich) 44.5 % EDV(cubed) 46.4 ml ESV(cubed) 22.4 ml EF(cubed) 51.7 % % IVS thick 47.2 % % LVPW thick 24.8 % LV mass(C)d 179.1 grams LV mass(C)dI 99.8 grams/m\S\2 LV mass(C)s 223.6 grams LV mass(C)sI 124.6 grams/m\S\2 SV(Teich) 24.1 ml SI(Teich) 13.4 ml/m\S\2 SV(cubed) 24.0 ml SI(cubed) 13.3 ml/m\S\2 Ao root diam 3.7 cm Ao root area 10.5 cm\S\2 ACS 2.1 cm LA dimension 4.2 cm LA/Ao 1.1 LVOT diam 2.0 cm LVOT area 3.0 cm\S\2 LVAd ap4 33.7 cm\S\2 LVLd ap4 8.9 cm EDV(MOD-sp4) 104.1 ml EDV(sp4-el) 108.9 ml LVAs ap4 23.7 cm\S\2 LVLs ap4 7.7 cm ESV(MOD-sp4) 59.5 ml ESV(sp4-el) 62.1 ml EF(MOD-sp4) 42.8 % EF(sp4-el) 43.0 % LVAd ap2 38.3 cm\S\2 LVLd ap2 8.6 cm EDV(MOD-sp2) 138.3 ml EDV(sp2-el) 144.0 ml LVAs ap2 28.1 cm\S\2 LVLs ap2 8.2 cm ESV(MOD-sp2) 82.5 ml ESV(sp2-el) 82.1 ml EF(MOD-sp2) 40.3 % EF(sp2-el) 43.0 % LVLd %diff -2.54 % EDV(MOD-bp) 118.4 ml LVLs %diff 5.9 % ESV(MOD-bp) 69.9 ml EF(MOD-bp) 41.0 % SV(MOD-sp4) 44.6 ml SI(MOD-sp4) 24.8 ml/m\S\2 SV(MOD-sp2) 55.8 ml SI(MOD-sp2) 31.1 ml/m\S\2 SV(MOD-bp) 48.5 ml SI(MOD-bp) 27.0 ml/m\S\2 SV(sp4-el) 46.9 ml SI(sp4-el) 26.1 ml/m\S\2 SV(sp2-el) 61.9 ml SI(sp2-el) 34.5 ml/m\S\2 Doppler Measurements and Calculations MV E max genesis 122.7 cm/sec MV A max genesis 59.7 cm/sec MV E/A 2.1 MV P1/2t max genesis 136.3 cm/sec MV P1/2t 59.3 msec MVA(P1/2t) 3.7 cm\S\2 MV dec slope 673.3 cm/sec\S\2 MV dec time 0.13 sec Ao V2 max 144.8 cm/sec Ao max PG 8.4 mmHg Ao max PG (full) 3.4 mmHg MILES(V,A) 2.3 cm\S\2 MILES(V,D) 2.3 cm\S\2 LV V1 max PG 5.0 mmHg LV V1 max 112.0 cm/sec PA V2 max 128.2 cm/sec PA max PG 6.6 mmHg PI max genesis 254.9 cm/sec PI max PG 26.0 mmHg PI dec slope 201.8 cm/sec\S\2 PI P1/2t 370.0 msec
[2016-08-05 22:54] VITALS: BP 146/76; PULSE 63; TEMP 36.7; O2SAT 92
[2016-08-06] MEDS: CHECK FENTANYL PATCH PLACEMENT SCH ×3 (00:29→15:57)
[2016-08-06] MEDS: D5W AND NSS 1,000 ML IV SCH ×2 (01:46→13:57)
[2016-08-06] MEDS: ONDANSETRON INJ 2 MG/ML 2 ML VIAL IV PRN ×2 (03:31→15:31)
[2016-08-06] MEDS: HYDROmorphone INJ 1 MG/ML SYR IV PRN ×2 (03:31→18:29)
[2016-08-06 07:02] LABS: BASO % 0.5 %; BASO ABS # 0.04 K/uL (0-0.2); COMPLETE YES; EOS % 0.8 %; HEMATOCRIT 31.4 % (42-52); IG% 0.2 %; LYMPH % 23.1 %; LYMPH ABS # 2.04 K/uL (1.2-3.4); MEAN CELL VOLUME 85.8 fL (80-100); MEAN CORPUSCULAR HEMOGLOBIN 27.9 pg (25-34); MEAN CORPUSCULAR HGB CONC 32.5 g/dl (32-36); NEUT % 65.4 %; PLATELET COUNT 285 K/uL (130-400); RED BLOOD COUNT 3.66 M/uL (4.7-6.1); WHITE BLOOD COUNT 8.84 K/uL (4.8-10.8)
[2016-08-06 07:29] VITALS: BP 180/94; PULSE 70; TEMP 36.4; O2SAT 92
[2016-08-06 07:31] LABS: BUN/CREATININE RATIO 14.4 (10-20); CALCIUM 7.7 mg/dl (8.5-10.1); CREATININE 1.5 mg/dl (0.60-1.40); POTASSIUM 3.6 mmol/L (3.5-5.1)
--- NOTE | 2016-08-06 07:34 | Surgery Progress Note ---
Surgery Progress Note Date of Service Aug 06, 2016. Subjective No vomiting alert, in no distress- stable u/s- no chg from prior- no wall thickening, Hida- visualization of gb- cystic duct patent tolerating full liquids Objective Vital Signs: Date Time Temp Pulse Resp B/P Pulse Ox O2 Delivery O2 Flow Rate FiO2 08/06/16 07:11 Room Air 08/06/16 00:31 Room Air 08/05/16 22:54 36.7 63 18 146/76 92 Room Air 08/05/16 16:14 Room Air 08/05/16 15:51 36.7 72 18 162/83 91 Room Air 08/05/16 10:33 174/93 08/05/16 07:40 Room Air 08/05/16 07:40 36.6 70 18 180/89 90 Room Air General Appearance: no apparent distress Respiratory/Chest: no respiratory distress Abdomen: soft Laboratory Results: Results Past 24 Hours Test 08/05/16 12:06 08/05/16 18:01 08/05/16 20:43 08/06/16 00:05 Range/Units Bedside Glucose 230 172 202 182 70-99 mg/dl Test 08/06/16 06:45 Range/Units White Blood Count 8.84 4.8-10.8 K/uL Red Blood Count 3.66 4.7-6.1 M/uL Hemoglobin 10.2 14.0-18.0 g/dL Hematocrit 31.4 42-52 % Mean Corpuscular Volume 85.8 80-100 fL Mean Corpuscular Hemoglobin 27.9 25-34 pg Mean Corpuscular Hemoglobin Concent 32.5 32-36 g/dl Platelet Count 285 130-400 K/uL Mean Platelet Volume 11.0 7.4-10.4 fL Neutrophils (%) (Auto) 65.4 % Lymphocytes (%) (Auto) 23.1 % Monocytes (%) (Auto) 10.0 % Eosinophils (%) (Auto) 0.8 % Basophils (%) (Auto) 0.5 % Neutrophils # (Auto) 5.79 1.4-6.5 K/uL Lymphocytes # (Auto) 2.04 1.2-3.4 K/uL Monocytes # (Auto) 0.88 0.11-0.59 K/uL Eosinophils # (Auto) 0.07 0-0.5 K/uL Basophils # (Auto) 0.04 0-0.2 K/uL RDW Standard Deviation 48.5 36.4-46.3 fL RDW Coefficient of Variation 15.4 11.5-14.5 % Immature Granulocyte % (Auto) 0.2 % Immature Granulocyte # (Auto) 0.02 0.00-0.02 K/uL Assessment & Plan 08/06/16- does not have acute cholecystitis- sxs seem like gastroparesis and musculoskeletal back pain- probably some element of biliary colic. No plan for sx- if sxs acute from gb , would consider cholecystostomy tube by IR but unnecessary at present. May need pain management. 08/05/16- doudt all sxs are from gallbladder- Hida scan ordered. Anesthesia very concerned about pts h/o stroke and heart disease. Pt is not in life threatening situation requiring cholecystectomy Cont w/u Neuro, cardiac, GI - no plan for urgent surgery- 08/05/16- doudt all sxs are from gallbladder- Hida scan ordered. Anesthesia very concerned about pts h/o stroke and heart disease. Pt is not in life threatening situation requiring cholecystectomy Cont w/u Neuro, cardiac, GI - no plan for urgent surgery-
[2016-08-06] MEDS: CLOPIDOGREL BISULFATE 75 MG TAB PO SCH (08:55)
[2016-08-06] MEDS: URSODIOL 300 MG CAP PO SCH ×2 (08:56→20:49)
[2016-08-06] MEDS: EZETIMIBE 10MG TAB PO SCH (08:56)
[2016-08-06] MEDS: CARVEDILOL 25 MG TAB PO SCH ×2 (08:56→20:50)
[2016-08-06] MEDS: LISINOPRIL 20 MG TAB PO SCH (08:56)
[2016-08-06] MEDS: SERTRALINE HCL 50 MG TAB PO SCH (08:56)
[2016-08-06] MEDS: METOCLOPRAMIDE HCL INJ 5 MG/ML 2 ML VIAL IV. SCH ×3 (08:59→20:52)
[2016-08-06] MEDS: ASPIRIN 81 MG CHEW PO SCH (08:59)
[2016-08-06] MEDS: INSULIN ASPART 100 UNITS/ML 3 ML PEN SC SCH ×4 (09:04→20:51)
--- NOTE | 2016-08-06 09:42 | Anesthesiology Progress Note ---
Anesthesia Progress Note Date of Service Aug 06, 2016. 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 Pt able to achieve 4 METS and appears to be acceptable risk from cardiac standpoint. However, current guidelines post CVA recommend no elective surgery 0-3months s/p CVA, on a case by case basis 3-9 months s/p CVA, and deemed acceptable for elective surgery after 9 months s/p CVA. Pt currently at 3 months post CVA and I explained to the pt that he would be a higher risk of repeat CVA. Would prefer to hold on elective surgery until 9 months s/p CVA However, if repeat admissions for abdominal pain/N/V continued, and the gallbladder was deemed the likely etiology, would weight the risks and benefits of repeat CVA vs continued admissions for pain/N/V. Please see paper anesthesia consult for further workup.
[2016-08-06 09:58] VITALS: BP 166/77
[2016-08-06] MEDS: PANTOprazole INJ 40 MG in SYRINGE 0 ML IV SCH (10:37)
--- NOTE | 2016-08-06 14:17 | Progress Note ---
Internal Med Progress Note Date of Service: Aug 06, 2016. Provider Documentation: SUBJECTIVE : Patient is feeling much better today. Abdominal pain has improved No vomiting. No fever, chills, urinary symptoms. OBJECTIVE : Vital Signs-as noted below EXAM : GENERAL: Moderate built, Awake, oriented x 3. HEENT: No pallor, no icterus. NECK: No JVD, No carotid bruits. CARDIOVASCULAR: S1, S2 heard, Regular rate and rhythm, no murmur. RESPIRATORY SYSTEM: Clear to auscultation bilaterally. No wheezing. No crackles. ABDOMEN: Soft, bowel sounds present. Right upper quadrant tenderness present. No guarding or rigidity. No distention. CENTRAL NERVOUS SYSTEM: Grossly no focal deficits EXTREMITIES: No edema, no erythema. Lab data as noted below. ASSESSMENT & PLAN: ASSESSMENT AND PLAN: This is a 45-year-old male who presents with persistent intractable nausea, vomiting and abdominal pain. INTRACTABLE NAUSEA/VOMITING/ABDOMINAL PAIN: Resolving Two admissions since may 2016, Last discharge 08/01/2016- US GB- Gall stones/ sludge--> surgery was considered but given recent stroke in 04/30 and on plavix/ Aspirin it was decided to delay sx x 6 months at least. Comes back with similar symptoms- intractable nausea, vomiting, abdominal pain -Prior hx of gastroparesis (not confirmed by gastric emptying study as patient had refused) -Work up- US GB- Gall stones/Sludge, HIDA- No cholecystitis -GI/Surgery on board- Discussed with surgery who did discuss case with anaesthesia- very high risk due to recent stroke on plavix/aspirin, so as no urgent indication for surgery, would want to post pone it for at least 6 months -IV fluids/Pain mx/IV Reglan TID and IV Zofran PRN . Tolerating regular diet -Checked [place]- No signs of drug abuse. JOSE MIGUEL ON CKD-III - Improving -Baseline : 1.4-1.5 -IV fluids. Hold lasix, aldactone -Monitor creatinine HX OF CAD S/P CABG -Stable with no acute cardiac symptoms -Continue with aspirin, Plavix, beta vineet, Zetia. HX OF CHRONIC SYSTOLIC CONGESTIVE HEART FAILURE -No signs of exacerbation -Held Diuretics/Aldactone and lasix as poor oral intake/JOSE MIGUEL DIABETES MELLITUS -Hold home meds -ISS, Accuchecks HX OF DEPRESSION -Continue zoloft GERD -Continue with PPPI HYPERLIPIDEMIA -Continue with zetia DVT PROPHYLAXIS -SCDS/TEDS DISPOSITION: Expected discharge home when stable- likely tomorrow Vital Signs: Date Time Temp Pulse Resp B/P Pulse Ox O2 Delivery O2 Flow Rate FiO2 08/06/16 09:58 166/77 08/06/16 07:29 36.4 70 16 180/94 92 Room Air 08/06/16 07:11 Room Air 08/06/16 00:31 Room Air 08/05/16 22:54 36.7 63 18 146/76 92 Room Air 08/05/16 16:14 Room Air 08/05/16 15:51 36.7 72 18 162/83 91 Room Air Lab Results: Results Past 24 Hours Test 08/05/16 18:01 08/05/16 20:43 08/06/16 00:05 08/06/16 06:45 Range/Units Bedside Glucose 172 202 182 70-99 mg/dl White Blood Count 8.84 4.8-10.8 K/uL Red Blood Count 3.66 4.7-6.1 M/uL Hemoglobin 10.2 14.0-18.0 g/dL Hematocrit 31.4 42-52 % Mean Corpuscular Volume 85.8 80-100 fL Mean Corpuscular Hemoglobin 27.9 25-34 pg Mean Corpuscular Hemoglobin Concent 32.5 32-36 g/dl Platelet Count 285 130-400 K/uL Mean Platelet Volume 11.0 7.4-10.4 fL Neutrophils (%) (Auto) 65.4 % Lymphocytes (%) (Auto) 23.1 % Monocytes (%) (Auto) 10.0 % Eosinophils (%) (Auto) 0.8 % Basophils (%) (Auto) 0.5 % Neutrophils # (Auto) 5.79 1.4-6.5 K/uL Lymphocytes # (Auto) 2.04 1.2-3.4 K/uL Monocytes # (Auto) 0.88 0.11-0.59 K/uL Eosinophils # (Auto) 0.07 0-0.5 K/uL Basophils # (Auto) 0.04 0-0.2 K/uL RDW Standard Deviation 48.5 36.4-46.3 fL RDW Coefficient of Variation 15.4 11.5-14.5 % Immature Granulocyte % (Auto) 0.2 % Immature Granulocyte # (Auto) 0.02 0.00-0.02 K/uL Sodium Level 143 136-145 mmol/L Potassium Level 3.6 3.5-5.1 mmol/L Chloride Level 111 98-107 mmol/L Carbon Dioxide Level 23 21-32 mmol/L Anion Gap 9.0 3-11 mmol/L Blood Urea Nitrogen 22 7-18 mg/dl Creatinine 1.50 0.60-1.40 mg/dl Est Creatinine Clear Calc Drug Dose 56.1 ml/min Estimated GFR () 64.2 Estimated GFR (Non- 55.4 BUN/Creatinine Ratio 14.4 10-20 Random Glucose 195 70-99 mg/dl Calcium Level 7.7 8.5-10.1 mg/dl Magnesium Level 2.0 1.8-2.4 mg/dl Test 08/06/16 07:44 08/06/16 11:40 Range/Units Bedside Glucose 199 124 70-99 mg/dl
[2016-08-06] MEDS ORDERED: TRAMADOL HCL 50 MG TAB PO PRN (14:30)
[2016-08-06 15:29] VITALS: BP 159/91; PULSE 62; TEMP 36.7; O2SAT 97
[2016-08-06 15:45] VITALS: O2SAT 97
[2016-08-06 20:43] VITALS: BP 157/89; PULSE 67
[2016-08-06 23:47] VITALS: BP 144/81; PULSE 67; TEMP 36.7; O2SAT 94
[2016-08-07] MEDS: D5W AND NSS 1,000 ML IV SCH (02:43)
[2016-08-07] MEDS: ONDANSETRON INJ 2 MG/ML 2 ML VIAL IV PRN ×2 (04:30→17:55)
[2016-08-07] MEDS: HYDROmorphone INJ 1 MG/ML SYR IV PRN ×2 (04:31→10:46)
[2016-08-07 07:17] LABS: BASO % 0.4 %; BASO ABS # 0.04 K/uL (0-0.2); COMPLETE YES; EOS % 4.8 %; HEMATOCRIT 29.1 % (42-52); IG% 0.2 %; LYMPH % 31.9 %; LYMPH ABS # 2.93 K/uL (1.2-3.4); MEAN CELL VOLUME 85.3 fL (80-100); MEAN CORPUSCULAR HEMOGLOBIN 27.6 pg (25-34); MEAN CORPUSCULAR HGB CONC 32.3 g/dl (32-36); MEAN PLATELET VOLUME 10.9 fL (7.4-10.4); MONO % 8.7 %; PLATELET COUNT 277 K/uL (130-400); RED BLOOD COUNT 3.41 M/uL (4.7-6.1); WHITE BLOOD COUNT 9.19 K/uL (4.8-10.8)
[2016-08-07] MEDS: HydrALAZINE HCL 20 MG/ML VIAL IV. PRN ×2 (07:24→23:38)
[2016-08-07] MEDS: CHECK FENTANYL PATCH PLACEMENT SCH ×4 (07:25→23:32)
[2016-08-07 07:37] VITALS: BP 196/117; PULSE 73; TEMP 36.7; O2SAT 94
[2016-08-07 07:46] LABS: BUN/CREATININE RATIO 11.2 (10-20); CALCIUM 7.2 mg/dl (8.5-10.1); CREATININE 1.7 mg/dl (0.60-1.40); POTASSIUM 3.8 mmol/L (3.5-5.1)
[2016-08-07] MEDS: METOCLOPRAMIDE HCL INJ 5 MG/ML 2 ML VIAL IV. SCH (08:35)
[2016-08-07] MEDS: URSODIOL 300 MG CAP PO SCH ×2 (09:06→21:49)
[2016-08-07] MEDS: LISINOPRIL 20 MG TAB PO SCH (09:06)
[2016-08-07] MEDS: CLOPIDOGREL BISULFATE 75 MG TAB PO SCH (09:06)
[2016-08-07] MEDS: SERTRALINE HCL 50 MG TAB PO SCH (09:06)
[2016-08-07] MEDS: CARVEDILOL 25 MG TAB PO SCH ×2 (09:06→21:49)
[2016-08-07] MEDS: EZETIMIBE 10MG TAB PO SCH (09:07)
[2016-08-07] MEDS: ASPIRIN 81 MG CHEW PO SCH (09:09)
[2016-08-07] MEDS: INSULIN ASPART 100 UNITS/ML 3 ML PEN SC SCH ×4 (09:13→21:52)
[2016-08-07 09:14] VITALS: BP 177/95
[2016-08-07] MEDS: PANTOprazole INJ 40 MG in SYRINGE 0 ML IV SCH (10:46)
[2016-08-07 10:57] VITALS: BP 132/78
[2016-08-07] MEDS ORDERED: OXYCODONE/ACETAMINOPHEN 5-325 TAB PO PRN ×2 (12:45→18:45)
--- NOTE | 2016-08-07 13:07 | Progress Note ---
Internal Med Progress Note Date of Service: Aug 07, 2016. Provider Documentation: SUBJECTIVE : Patient is c/o nausea today. Abdominal pain has improved - still using IV dilaudid on and off though- last administration around 10:30 AM No vomiting. No fever, chills, urinary symptoms. Tolerating PO OBJECTIVE : Vital Signs-as noted below EXAM : GENERAL: Moderate built, Awake, oriented x 3. HEENT: No pallor, no icterus. NECK: No JVD, No carotid bruits. CARDIOVASCULAR: S1, S2 heard, Regular rate and rhythm, no murmur. RESPIRATORY SYSTEM: Clear to auscultation bilaterally. No wheezing. No crackles. ABDOMEN: Soft, bowel sounds present. Right upper quadrant tenderness present. No guarding or rigidity. No distention. CENTRAL NERVOUS SYSTEM: Grossly no focal deficits EXTREMITIES: No edema, no erythema. Lab data as noted below. ASSESSMENT & PLAN: ASSESSMENT AND PLAN: This is a 45-year-old male who presents with persistent intractable nausea, vomiting and abdominal pain. INTRACTABLE NAUSEA/VOMITING/ABDOMINAL PAIN: Improved Two admissions since may 2016, Last discharge 08/01/2016- US GB- Gall stones/ sludge--> surgery was considered but given recent stroke in 04/30 and on plavix/ Aspirin it was decided to delay sx x 6 months at least. Comes back with similar symptoms- intractable nausea, vomiting, abdominal pain -Prior hx of gastroparesis (not confirmed by gastric emptying study as patient had refused) -Work up- US GB- Gall stones/Sludge, HIDA- No cholecystitis -GI/Surgery on board- Discussed with surgery who did discuss case with anaesthesia- very high risk due to recent stroke on plavix/aspirin, so as no urgent indication for surgery, would want to post pone it for at least 6 months -IV fluids/Pain mx/IV Reglan TID and IV Zofran PRN . Tolerating regular diet -Checked [place] drug [place]- No signs of drug abuse. PLAN: Discontinue IVF. Reglan changed from scheduled to PRN to see how he does while being off it. For pain mx, discontinue IV Dilaudid and start percocet 5/ 325 mg q 6 hours as needed for pain. JOSE MIGUEL ON CKD-III - Worse today - 1.7 -Baseline : 1.4-1.5 -Discontinue IV Fluids today . Diuretics held. -Monitor creatinine HYPERTENSION, Uncontrolled -On Lisinopril 40 mg daily, Carvedilol 25 mg PO BID. Will add Amlodipine 5 mg daily today -Monitor closely HX OF CAD S/P CABG -Stable with no acute cardiac symptoms -Continue with aspirin, Plavix, beta vineet, Zetia. HX OF CHRONIC SYSTOLIC CONGESTIVE HEART FAILURE -No signs of exacerbation -Held Diuretics/Aldactone and lasix as poor oral intake/JOSE MIGUEL DIABETES MELLITUS -Hold home meds -ISS, Accuchecks HX OF DEPRESSION -Continue zoloft GERD -Continue with PPPI HYPERLIPIDEMIA -Continue with zetia DVT PROPHYLAXIS -SCDS/TEDS DISPOSITION: Expected discharge home when stable- likely tomorrow Need to still monitor creatinine which is worse today, work on pain mx regimen on discharge Vital Signs: Date Time Temp Pulse Resp B/P Pulse Ox O2 Delivery O2 Flow Rate FiO2 08/07/16 10:57 132/78 08/07/16 09:14 177/95 08/07/16 07:37 36.7 73 18 196/117 94 Room Air 08/07/16 07:06 Room Air 08/06/16 23:47 36.7 67 16 144/81 94 Room Air 08/06/16 23:38 Room Air 08/06/16 20:43 67 157/89 08/06/16 15:45 97 Room Air 08/06/16 15:29 36.7 62 18 159/91 97 Room Air Lab Results: Results Past 24 Hours Test 08/06/16 16:48 08/06/16 20:42 08/07/16 06:46 08/07/16 08:03 Range/Units Bedside Glucose 172 223 286 70-99 mg/dl White Blood Count 9.19 4.8-10.8 K/uL Red Blood Count 3.41 4.7-6.1 M/uL Hemoglobin 9.4 14.0-18.0 g/dL Hematocrit 29.1 42-52 % Mean Corpuscular Volume 85.3 80-100 fL Mean Corpuscular Hemoglobin 27.6 25-34 pg Mean Corpuscular Hemoglobin Concent 32.3 32-36 g/dl Platelet Count 277 130-400 K/uL Mean Platelet Volume 10.9 7.4-10.4 fL Neutrophils (%) (Auto) 54.0 % Lymphocytes (%) (Auto) 31.9 % Monocytes (%) (Auto) 8.7 % Eosinophils (%) (Auto) 4.8 % Basophils (%) (Auto) 0.4 % Neutrophils # (Auto) 4.96 1.4-6.5 K/uL Lymphocytes # (Auto) 2.93 1.2-3.4 K/uL Monocytes # (Auto) 0.80 0.11-0.59 K/uL Eosinophils # (Auto) 0.44 0-0.5 K/uL Basophils # (Auto) 0.04 0-0.2 K/uL RDW Standard Deviation 47.7 36.4-46.3 fL RDW Coefficient of Variation 15.2 11.5-14.5 % Immature Granulocyte % (Auto) 0.2 % Immature Granulocyte # (Auto) 0.02 0.00-0.02 K/uL Sodium Level 143 136-145 mmol/L Potassium Level 3.8 3.5-5.1 mmol/L Chloride Level 112 98-107 mmol/L Carbon Dioxide Level 23 21-32 mmol/L Anion Gap 8.0 3-11 mmol/L Blood Urea Nitrogen 19 7-18 mg/dl Creatinine 1.70 0.60-1.40 mg/dl Est Creatinine Clear Calc Drug Dose 49.5 ml/min Estimated GFR () 55.2 Estimated GFR (Non- 47.6 BUN/Creatinine Ratio 11.2 10-20 Random Glucose 293 70-99 mg/dl Calcium Level 7.2 8.5-10.1 mg/dl Magnesium Level 2.0 1.8-2.4 mg/dl Test 08/07/16 12:03 Range/Units Bedside Glucose 187 70-99 mg/dl
[2016-08-07] MEDS ORDERED: METOCLOPRAMIDE HCL INJ 5 MG/ML 2 ML VIAL IV PRN (13:15)
[2016-08-07 15:19] VITALS: BP 152/92; PULSE 68; TEMP 36.6; O2SAT 94
[2016-08-07] MEDS: FENTANYL PATCH REMOVE & WASTE SCH (15:59)
[2016-08-07] MEDS: FENTANYL 12 MCG/HR TDSY TD SCH (16:49)
[2016-08-07 23:28] VITALS: BP 194/101; PULSE 78; TEMP 36.6; O2SAT 90
[2016-08-07 23:31] VITALS: BP 188/94
[2016-08-08] MEDS: ONDANSETRON INJ 2 MG/ML 2 ML VIAL IV PRN ×2 (00:22→07:43)
[2016-08-08 00:32] VITALS: BP 158/85
[2016-08-08 07:20] VITALS: BP 173/79; PULSE 70; TEMP 36.9; O2SAT 92
[2016-08-08 07:41] LABS: BUN/CREATININE RATIO 15.2 (10-20); CALCIUM 7.5 mg/dl (8.5-10.1); CREATININE 1.4 mg/dl (0.60-1.40); POTASSIUM 3.9 mmol/L (3.5-5.1)
[2016-08-08] MEDS: CHECK FENTANYL PATCH PLACEMENT SCH (07:44)
[2016-08-08] MEDS ORDERED: AMLODIPINE BESYLATE 5 MG TAB PO SCH ×2 (09:00)
[2016-08-08] MEDS ORDERED: PANTOprazole SOD 40 MG TAB PO SCH (09:00)
[2016-08-08] MEDS: CLOPIDOGREL BISULFATE 75 MG TAB PO SCH (09:37)
[2016-08-08] MEDS: LISINOPRIL 20 MG TAB PO SCH (09:37)
[2016-08-08] MEDS: EZETIMIBE 10MG TAB PO SCH (09:37)
[2016-08-08] MEDS: SERTRALINE HCL 50 MG TAB PO SCH (09:37)
[2016-08-08] MEDS: URSODIOL 300 MG CAP PO SCH (09:38)
[2016-08-08] MEDS: CARVEDILOL 25 MG TAB PO SCH (09:38)
[2016-08-08] MEDS: ASPIRIN 81 MG CHEW PO SCH (09:39)
[2016-08-08] MEDS: INSULIN ASPART 100 UNITS/ML 3 ML PEN SC SCH ×2 (09:44→13:18)
[2016-08-08 12:00] VITALS: BP 140/86; PULSE 63; TEMP 36.6; O2SAT 94
--- NOTE | 2016-08-08 13:20 | Progress Note ---
Internal Med Progress Note Date of Service: Aug 08, 2016. Provider Documentation: SUBJECTIVE : Patient is doing much better today. Tolerating PO diet well. Pain, nausea under control. No vomiting. No fever, chills, urinary symptoms. OBJECTIVE : Vital Signs-as noted below EXAM : GENERAL: Moderate built, Awake, oriented x 3. HEENT: No pallor, no icterus. NECK: No JVD, No carotid bruits. CARDIOVASCULAR: S1, S2 heard, Regular rate and rhythm, no murmur. RESPIRATORY SYSTEM: Clear to auscultation bilaterally. No wheezing. No crackles. ABDOMEN: Soft, bowel sounds present. Right upper quadrant tenderness present- improved. No guarding or rigidity. No distention. CENTRAL NERVOUS SYSTEM: Grossly no focal deficits EXTREMITIES: No edema, no erythema. Lab data as noted below. ASSESSMENT & PLAN: ASSESSMENT AND PLAN: This is a 45-year-old male who presents with persistent intractable nausea, vomiting and abdominal pain. INTRACTABLE NAUSEA/VOMITING/ABDOMINAL PAIN: Improved Two admissions since may 2016, Last discharge 08/01/2016- US GB- Gall stones/ sludge--> surgery was considered but given recent stroke in 04/30 and on plavix/ Aspirin it was decided to delay sx x 6 months at least. Comes back with similar symptoms- intractable nausea, vomiting, abdominal pain -Prior hx of gastroparesis (not confirmed by gastric emptying study as patient had refused) -Work up- US GB- Gall stones/Sludge, HIDA- No cholecystitis -GI/Surgery on board- Discussed with surgery who did discuss case with anaesthesia- very high risk due to recent stroke on plavix/aspirin, so as no urgent indication for surgery, would want to post pone it for at least 6-9 months -IV fluids/Pain mx/IV Reglan TID PRN and IV Zofran PRN . Tolerating regular diet well -Checked [place] drug [place]- No signs of drug abuse. PLAN: Patient with persistent symptoms of nausea, abdominal pain with varying intensity, currently much improved. Could be secondary to Gallstones/Sludge, acute cholecystitis ruled out by negative HIDA scan. No acute inflammatory conditions noted during this or prior admissions since 05/30. Will have to manage with symptom control as not a candidate for surgery atleast for 3-6 months due to recent stroke. However, per sx/anesthesia would consider cholecystostomy if emergency or repeated admissions with symptoms--but ideally should try to avoid due to risk of stroke. -Pain mx- Fentanyl 12 mcg q 72 hours, Percocet 5/325 mg q 6 hours as needed for pain. Explained side effects, addictive potential of narcotics. Aunt by bedside who is business systems advisor and agreeable to keep it under her supervision. -Nausea- Zofran 4 mg PO q 6 hours as needed for nausea -Diet- Low fat, low cholesterol, Low salt diet JOSE MIGUEL ON CKD-III - Improved and near baseline 1.4 today -Baseline : 1.4-1.5 -S/P IVF. Restart diuretic from tomorrow. Repeat BMP in 4 days 08/12/16 -Monitor creatinine HYPERTENSION, Uncontrolled -On Lisinopril 40 mg daily, Carvedilol 25 mg PO BID. Added amlodipine 10 mg during this admission. Restarting diuretics from tomorrow will help with BP too -Monitor closely outpatient. HX OF CAD S/P CABG -Stable with no acute cardiac symptoms -Continue with aspirin, Plavix, beta vineet, Zetia. HX OF CHRONIC SYSTOLIC CONGESTIVE HEART FAILURE -No signs of exacerbation -Held Diuretics/Aldactone and lasix as poor oral intake/JOSE MIGUEL. OK to re start from tomorrow DIABETES MELLITUS -Hold home meds -ISS, Accuchecks HX OF DEPRESSION -Continue zoloft GERD -Continue with PPI HYPERLIPIDEMIA -Continue with zetia DVT PROPHYLAXIS -SCDS/TEDS DISPOSITION: Ok to discharge home today Discussed discharge plan with aunt by bedside who is a court magistrate and involved in his care. Vital Signs: Date Time Temp Pulse Resp B/P Pulse Ox O2 Delivery O2 Flow Rate FiO2 08/08/16 12:00 36.6 63 16 140/86 94 Room Air 08/08/16 07:30 Room Air 08/08/16 07:20 36.9 70 16 173/79 92 Room Air 08/08/16 00:32 158/85 08/07/16 23:46 Room Air 08/07/16 23:31 188/94 08/07/16 23:28 36.6 78 16 194/101 90 Room Air 08/07/16 20:14 Room Air 08/07/16 15:19 36.6 68 18 152/92 94 Room Air Lab Results: Results Past 24 Hours Test 08/07/16 16:37 08/07/16 20:35 08/08/16 06:38 08/08/16 08:17 Range/Units Bedside Glucose 187 211 159 70-99 mg/dl Sodium Level 139 136-145 mmol/L Potassium Level 3.9 3.5-5.1 mmol/L Chloride Level 109 98-107 mmol/L Carbon Dioxide Level 22 21-32 mmol/L Anion Gap 8.0 3-11 mmol/L Blood Urea Nitrogen 21 7-18 mg/dl Creatinine 1.40 0.60-1.40 mg/dl Est Creatinine Clear Calc Drug Dose 60.1 ml/min Estimated GFR () 69.8 Estimated GFR (Non- 60.3 BUN/Creatinine Ratio 15.2 10-20 Random Glucose 171 70-99 mg/dl Calcium Level 7.5 8.5-10.1 mg/dl Test 08/08/16 12:02 Range/Units Bedside Glucose 244 70-99 mg/dl
[2016-08-08] MEDS ORDERED: NRV5 PO (13:22)
[2016-08-08] MEDS ORDERED: DRGTP12 EXT (13:22)
[2016-08-08] MEDS ORDERED: OXYC-57 PO (13:22)
[2016-08-08] MEDS ORDERED: ONDA8TAB62 SL ×2 (13:28→13:41)
--- NOTE | 2016-08-08 13:28 | Discharge Instructions ---
Discharge Instructions Admission Reason for Admission: Abdominal Pain, Intractable Nausea And Vomiting Discharge Discharge Diagnosis / Problem: 1. Nausea/Vomiting/Abdominal pain, possibly related to GB stones/sludge Discharge Goals Goal(s): Decrease discomfort, Improve disease control Activity Recommendations Activity Limitations: resume your previous activity . Instructions / Follow-Up Instructions / Follow-Up MEDICATION CHANGES: 1. New medication: Percocet 5/325 mg as directly only as needed for severe break through pain 2. New medication: Amlodipine 10 mg daily for BP 3. Ok to restart diuretics -lasix/aldactone from tomorrow SYMPTOM MANAGEMENT: 1. Nausea- Reglan 5 mg with meals, Zofran as instructed only as needed for nausea/vomiting. If doing better, should try to wean off reglan and change all medications to as needed than scheduled 2. Pain - Continue with fentanyl 12 mcq q 72 hours , percocet only for break through severe pain as per instructions. Try to wean it down MONITOR: 1. BP due to fluctuations and recent change in medications. Call PCP if BP uncontrolled ->170-180 2. BMP to be done on 08/12/[address] Alfredo Kirk - 08/13/16 at 12:50 PM Current Hospital Diet Patient's current hospital diet: Diabetes Type 2 Diet Discharge Diet Recommended Diet: AHA Diet (Heart Healthy), Low Sodium Diet (2gm Na), Low Fat Diet Pending Studies Studies pending at discharge: no Laboratory Results Hemoglobin A1c Test 08/05/16 07:12 Range/Units Estimated Average Glucose 194 mg/dl Hemoglobin A1c 8.4 H 4.5-5.6 % Medical Emergencies . Who to Call and When: Medical Emergencies: If at any time you feel your situation is an emergency, please call 911 immediately. . Non-Emergent Contact Non-Emergency issues call your: Primary Care Provider . . "Provider Documentation" section prepared by Nina Oneal. VTE Core Measure Inpt VTE Proph given/why not?: Panchito Macario, SCD's
--- NOTE | 2016-08-08 13:32 | Discharge Summary ---
Discharge Summary Date of Service Aug 08, 2016. Discharge Summary Admission Date: Aug 04, 2016 at 12:09 Discharge Date: Aug 08, 2016 Discharge Disposition: Home Principal Diagnosis: 1. Nausea/vomiting/Abdominal pain, possibly related to Cholelithiasis/GB Sludge 2. JOSE MIGUEL on CKD-III 3. Hypertension, uncontrolled Secondary Diagnoses/Problems: 1. Hx of CAD S/P CABG 2. Hx of recent stroke 3. Hyperlipidemia 4. GERD 5. Chronic systolic heart failure 6. Depression Procedures: HIDA SCAN CXR Lumbar/Thoracic x ray GB US IV fluids Consultations: Surgery Anaesthesia Pending Studies/Follow-Up: Instructions / Follow-Up MEDICATION CHANGES: 1. New medication: Percocet 5/325 mg as directly only as needed for severe break through pain 2. New medication: Amlodipine 10 mg daily for BP 3. Ok to restart diuretics -lasix/aldactone from tomorrow SYMPTOM MANAGEMENT: 1. Nausea- Reglan 5 mg with meals, Zofran as instructed only as needed for nausea/vomiting. If doing better, should try to wean off reglan and change all medications to as needed than scheduled 2. Pain - Continue with fentanyl 12 mcq q 72 hours , percocet only for break through severe pain as per instructions. Try to wean it down MONITOR: 1. BP due to fluctuations and recent change in medications. Call PCP if BP uncontrolled ->170-180 2. BMP to be done on 08/12/[address] Alfredo Kirk - 08/13/16 at 12:50 PM Medication Reconciliation New Medications: Amlodipine Besylate (Amlodipine Besylate) 5 Mg Tab 10 MG PO DAILY for 30 Days, #60 TAB Oxycodone/Acetaminophen 5MG/325MG (Percocet 5MG/325MG) Tab 1 TAB PO Q6H PRN for Pain, #20 TAB PAIN Continued Medications: Aspirin (Aspirin) 81 Mg Chw 1 TAB PO DAILY for 30 Days, #30 TAB 3 Refills Carvedilol (Coreg) 25 Mg Tab 1 TAB PO BID for 90 Days, #180 TAB 1 Refill Clopidogrel Bisulfate (Plavix) 75 Mg Tab 1 TAB PO DAILY for 90 Days, #90 TAB 1 Refill Docusate Sodium (Colace) 100 Mg Cap 1 CAP PO BID PRN for Constipation for 15 Days, #30 CAP Ezetimibe (Zetia) 10 Mg Tab 1 TAB PO DAILY for 30 Days, #30 TAB 5 Refills Fentanyl (Fentanyl) 12 Mcg Tdsy 12 MCG EXT UD, #10 PATCH 0 Refills (This prescription has been renewed) 1 patch topically q 72 hours Furosemide (Lasix) 40 Mg Tab 1 TAB PO DAILY for 90 Days, #90 TAB 3 Refills Glipizide (Glipizide) 5 Mg Tab 5 MG PO DAILY Insulin Glulisine (Apidra) 100 Unit/Ml Inj 6 UNITS SC UD 6 units SC before breakfast and supper Insulin Glulisine (Apidra) 100 Unit/Ml Inj 5 UNITS SC UD Take 5 units SC before lunch Lisinopril (Lisinopril) 20 Mg Tab 40 MG PO DAILY Metformin Hcl (Glucophage) 500 Mg Tab 500 MG PO DAILY for 30 Days, #30 TAB Metoclopramide Hcl (Reglan) 5 Mg Tab 5 MG PO ACHS, TAB Ondansetron Odt (Zofran Odt) 8 Mg Soltab 8 MG SL Q6H PRN for Nausea, #30 TAB 0 Refills (This prescription has been renewed) Pantoprazole Sodium (Protonix) 40 Mg Tab 40 MG PO DAILY, #30 TAB Sertraline (Zoloft) 50 Mg Tab 1 TAB PO DAILY for 30 Days, #30 TAB 2 Refills Spironolactone (Aldactone) 25 Mg Tab 1 TAB PO DAILY for 90 Days, #90 TAB 1 Refill Ursodiol (Actigall) 300 Mg Cap 300 MG PO BID, CAP Admission Information HPI (per Admitting provider): HISTORY OF PRESENT ILLNESS: This is a 45-year-old male with past medical history significant for diabetes, CAD status post CABG, nephrotic range proteinuria, hypertension, statin intolerance, history of bilateral pleural effusions, hyperlipidemia, chronic systolic heart failure, history of CVA due to embolism of precerebral artery, patent foramen ovale, history of calculus of gallbladder without cholecystitis, history of depression, history of GERD with esophagitis presents with intractable nausea and vomiting. The patient was here in the hospital in 07/28/2016 and discharged on 08/01/2016 for nausea, vomiting and found to have gallstones. Because the patient has a stroke in April 2016, it was advised to not get surgery done and wait for surgery for 6 months. His symptoms were controlled and he was discharged on ursodiol, but the patient went to the [facility] again with intractable nausea, vomiting and abdominal pain and back pain and he was transferred here. Says he gets the back pain whenever he has nausea, vomiting and abdominal pain Denies any fever, chills. Has some headaches. No blurred vision, no dizziness. No chest pain, no shortness of breath, no cough, not requesting pain medications. The patient says that he may be cannot wait for 6 months to get his surgery and he thinks to get surgery in this admission. Hospital Course ASSESSMENT AND PLAN: This is a 45-year-old male who presents with persistent intractable nausea, vomiting and abdominal pain. INTRACTABLE NAUSEA/VOMITING/ABDOMINAL PAIN: Improved Two admissions since may 2016, Last discharge 08/01/2016- US GB- Gall stones/ sludge--> surgery was considered but given recent stroke in 04/30 and on plavix/ Aspirin it was decided to delay sx x 6 months at least. Comes back with similar symptoms- intractable nausea, vomiting, abdominal pain -Prior hx of gastroparesis (not confirmed by gastric emptying study as patient had refused) -Work up- US GB- Gall stones/Sludge, HIDA- No cholecystitis -GI/Surgery on board- Discussed with surgery who did discuss case with anaesthesia- very high risk due to recent stroke on plavix/aspirin, so as no urgent indication for surgery, would want to post pone it for at least 6-9 months -IV fluids/Pain mx/IV Reglan TID PRN and IV Zofran PRN . Tolerating regular diet well -Checked [place] drug [place]- No signs of drug abuse. PLAN: Patient with persistent symptoms of nausea, abdominal pain with varying intensity, currently much improved. Could be secondary to Gallstones/Sludge, acute cholecystitis ruled out by negative HIDA scan. No acute inflammatory conditions noted during this or prior admissions since 05/30. Will have to manage with symptom control as not a candidate for surgery atleast for 3-6 months due to recent stroke. However, per sx/anesthesia would consider cholecystostomy if emergency or repeated admissions with symptoms--but ideally should try to avoid due to risk of stroke. -Pain mx- Fentanyl 12 mcg q 72 hours, Percocet 5/325 mg q 6 hours as needed for pain. Explained side effects, addictive potential of narcotics. Aunt by bedside who is silk spreader and agreeable to keep it under her supervision. Need to try to wean off meds -Nausea- Reglan 5 mg with meals, Zofran 8 mg PO q 6 hours as needed for nausea-- need to try to wean off scheduled meds -Diet- Low fat, low cholesterol, Low salt diet JOSE MIGUEL ON CKD-III - Improved and near baseline 1.4 today -Baseline : 1.4-1.5 -S/P IVF. Restart diuretic from tomorrow. Repeat BMP in 4 days 08/12/16 -Monitor creatinine HYPERTENSION, Uncontrolled -On Lisinopril 40 mg daily, Carvedilol 25 mg PO BID. Added amlodipine 10 mg during this admission. Restarting diuretics from tomorrow will help with BP too -Monitor closely outpatient. HX OF CAD S/P CABG -Stable with no acute cardiac symptoms -Continue with aspirin, Plavix, beta vineet, Zetia. HX OF CHRONIC SYSTOLIC CONGESTIVE HEART FAILURE -No signs of exacerbation -Held Diuretics/Aldactone and lasix as poor oral intake/JOSE MIGUEL. OK to re start from tomorrow DIABETES MELLITUS -Hold home meds -ISS, Accuchecks HX OF DEPRESSION -Continue zoloft GERD -Continue with PPI HYPERLIPIDEMIA -Continue with zetia DVT PROPHYLAXIS -SCDS/TEDS DISPOSITION: Ok to discharge home today Discussed discharge plan with aunt by bedside who is a community development worker and involved in his care. Total time spent on discharge = 40 minutes This includes examination of the patient, discharge planning, medication reconciliation, and communication with other providers. Discharge Instructions Activity Limitations: resume your previous activity . Instructions / Follow-Up Instructions / Follow-Up MEDICATION CHANGES: 1. New medication: Percocet 5/325 mg as directly only as needed for severe break through pain 2. New medication: Amlodipine 10 mg daily for BP 3. Ok to restart diuretics -lasix/aldactone from tomorrow SYMPTOM MANAGEMENT: 1. Nausea- Reglan 5 mg with meals, Zofran as instructed only as needed for nausea/vomiting. If doing better, should try to wean off reglan and change all medications to as needed than scheduled 2. Pain - Continue with fentanyl 12 mcq q 72 hours , percocet only for break through severe pain as per instructions. Try to wean it down MONITOR: 1. BP due to fluctuations and recent change in medications. Call PCP if BP uncontrolled ->170-180 2. BMP to be done on 08/12/[address] Alfredo Kirk - 08/13/16 at 12:50 PM Current Hospital Diet Patient's current hospital diet: Diabetes Type 2 Diet Discharge Diet Recommended Diet: AHA Diet (Heart Healthy), Low Sodium Diet (2gm Na), Low Fat Diet Pending Studies Studies pending at discharge: no Laboratory Results Hemoglobin A1c Test 08/05/16 07:12 Range/Units Estimated Average Glucose 194 mg/dl Hemoglobin A1c 8.4 H 4.5-5.6 % Medical Emergencies . Who to Call and When: Medical Emergencies: If at any time you feel your situation is an emergency, please call 911 immediately. . Non-Emergent Contact Non-Emergency issues call your: Primary Care Provider . . "Provider Documentation" section prepared by Nina Oneal. VTE Core Measure Inpt VTE Proph given/why not?: Panchito Macario, SCD's
[2016-08-08 15:20] VITALS: BP 140/86; PULSE 63; TEMP 36.6; O2SAT 94
== END 2016-08-08 17:01 | disposition home or self-care (01) | DRG 445 ==
LOC: ENRESERVDT → ENRESERVTM → C.MED 12:09 → C.MSN 17:16
PROVIDERS: ADMIT Internal Medicine; ATTEND Internal Medicine
DX: K80.20 Calculus of gallbladder without cholecystitis without obstruction (principal); N17.9 Acute kidney failure, unspecified; I13.0 Hypertensive heart and chronic kidney disease with heart failure and stage 1 through stage 4 chronic kidney disease, or unspecified chronic kidney disease; I50.22 Chronic systolic (congestive) heart failure; Q21.1 Atrial septal defect; I25.10 Atherosclerotic heart disease of native coronary artery without angina pectoris; E11.22 Type 2 diabetes mellitus with diabetic chronic kidney disease; N18.3 Chronic kidney disease, stage 3 (moderate); F32.9 Major depressive disorder, single episode, unspecified; K21.0 Gastro-esophageal reflux disease with esophagitis; E78.5 Hyperlipidemia, unspecified; Z86.73 Personal history of transient ischemic attack (TIA), and cerebral infarction without residual deficits; Z95.1 Presence of aortocoronary bypass graft; Z79.02 Long term (current) use of antithrombotics/antiplatelets; Z79.4 Long term (current) use of insulin; Z79.82 Long term (current) use of aspirin; Z79.84 Long term (current) use of oral hypoglycemic drugs; Z79.891 Long term (current) use of opiate analgesic; Z79.899 Other long term (current) drug therapy; Z88.5 Allergy status to narcotic agent; Z88.8 Allergy status to other drugs, medicaments and biological substances; Z83.3 Family history of diabetes mellitus; Z82.49 Family history of ischemic heart disease and other diseases of the circulatory system; Z82.79 Family history of other congenital malformations, deformations and chromosomal abnormalities

== ENCOUNTER → 2017-08-31 | Day surgery (SDC) | payer OTHER ==
[2017-08-20 07:55] VITALS: Ht 167.6 cm; Wt 65.5 kg
--- NOTE | 2017-08-20 09:15 | PAT Medication Instructions ---
Service Date Aug 20, 2017. Current Home Medication List Acetaminophen (Tylenol), 650 MG PO Q6H PRN for Pain Aspirin (Aspirin), 1 TAB PO DAILY Bisacodyl (Bisacodyl), 10 MG RE UD Calcium Acetate (Phosphate Bin (Calcium Acetate), 667 MG PO TID Carvedilol (Coreg), 25 MG PO BID Clopidogrel Bisulfate (Plavix), 1 TAB PO DAILY Diphenhydramine Hcl (Benadryl Allergy), 25 MG PO BID PRN for Itching Ergocalciferol (Vitamin D 75983 Unit), 50,000 UNITS PO TU,THU Fentanyl (Fentanyl), 1 PATCH TOP Q72H Heparin Sodium (Porcine) (Heparin Sodium), 5,000 UNITS INJ BID Hydralazine Hcl (Apresoline), 50 MG PO TID Insulin Glargine (Lantus), 6 UNITS SC HS Insulin Lispro (Human) (Humalog Kwikpen), 0 SQ TIDM,HS Isosorbide Mononitrate Ext Rel (Imdur Ext Rel), 60 MG PO DAILY Loperamide Hcl (Loperamide A-D), 2 MG PO Q4H PRN for Diarrhea Losartan Potassium (Cozaar), 25 MG PO DAILY Magnesium Oxide (Mag-Ox), 400 MG PO DAILY Menthol-Zinc Oxide (Calmoseptine), TOP Q12H Multivitamin (Multivitamin), 1 TAB PO DAILY Oxycodone Ir (Roxicodone Ir), 7.5 MG PO Q3H PRN for Severe Pain Pantoprazole Sodium (Protonix), 40 MG PO DAILY Polyethylene Glycol 3350 (Miralax), 17 GM PO DAILY PRN for Constipation Promethazine Hcl (Phenergan), 25 MG PO Q8H PRN for Nausea Sertraline (Zoloft), 100 MG PO DAILY Sodium Phosphate/Biphosphate (Fleet Enema), 1 EA AZ UD Ursodiol (Actigall), 300 MG PO BID Vitamin B Cmplx/Vitc/Folic Ac (Nephrocaps), 1 CAP PO DAILY Zinc Oxide (Topical) (Zinc Oxide), TOP Q4H [Skin Prep Wipes], 1 DOSE TOP Q12H Medication Instructions For Your Scheduled Surgery - Check with surgeon (Dr. Freeman) and prescribing physician for instructions: Heparin Sodium (Porcine) (Heparin Sodium), 5,000 UNITS INJ BID Clopidogrel Bisulfate (Plavix), 1 TAB PO DAILY Aspirin (Aspirin), 1 TAB PO DAILY - Continue as directed: Sertraline (Zoloft), 100 MG PO DAILY Pantoprazole Sodium (Protonix), 40 MG PO DAILY Insulin Lispro (Human) (Humalog Kwikpen), 0 SQ TIDM,HS Insulin Glargine (Lantus), 6 UNITS SC HS - Hold the following medications 24 hours prior to surgery: [Skin Prep Wipes], 1 DOSE TOP Q12H Zinc Oxide (Topical) (Zinc Oxide), TOP Q4H Menthol-Zinc Oxide (Calmoseptine), TOP Q12H Ursodiol (Actigall), 300 MG PO BID - Hold the following medications the morning of surgery: Vitamin B Cmplx/Vitc/Folic Ac (Nephrocaps), 1 CAP PO DAILY Sodium Phosphate/Biphosphate (Fleet Enema), 1 EA AZ UD Polyethylene Glycol 3350 (Miralax), 17 GM PO DAILY PRN for Constipation Multivitamin (Multivitamin), 1 TAB PO DAILY Losartan Potassium (Cozaar), 25 MG PO DAILY Magnesium Oxide (Mag-Ox), 400 MG PO DAILY Loperamide Hcl (Loperamide A-D), 2 MG PO Q4H PRN for Diarrhea Ergocalciferol (Vitamin D 81346 Unit), 50,000 UNITS PO TUES,FRI Bisacodyl (Bisacodyl), 10 MG RE UD Calcium Acetate (Phosphate Bin (Calcium Acetate), 667 MG PO TID - Take the following medications the morning of surgery with a sip of water: Promethazine Hcl (Phenergan), 25 MG PO Q8H PRN for Nausea (if needed) Oxycodone Ir (Roxicodone Ir), 7.5 MG PO Q3H PRN for Severe Pain (okay to take up to 4 hours prior to surgery if needed) Isosorbide Mononitrate Ext Rel (Imdur Ext Rel), 60 MG PO DAILY Hydralazine Hcl (Apresoline), 50 MG PO TID Fentanyl (Fentanyl), 1 PATCH TOP Q72H (avoid placement of surgical site) Diphenhydramine Hcl (Benadryl Allergy), 25 MG PO BID PRN for Itching (if needed) Carvedilol (Coreg), 25 MG PO BID Acetaminophen (Tylenol), 650 MG PO Q6H PRN for Pain (okay to take up to 4 hours prior to surgery if needed) If you have any questions please call us at [phone] or [phone] or [phone]
[~2017-08-31] VITALS: Ht 167.6 cm; Wt 65.5 kg
[~2017-08-31] MED LIST changes: +ACET-1311 PO; +ACETAMINOPHEN 325 MG TAB PO PRN; +ATROPINE SULFATE 0.1 MG/ML 5ML SYR IV PRN; +ATROPINE SULFATE 1% OP OINT PER APPLICATION CHARGE ONE; +B-CO1CAP17 PO; +BISA10SU5 RE; +BUPIVACAINE HCL 0.75% 10 ML AMP/VIAL ONE; +CALC1TAB23 PO; +CEFAZOLIN SOD 1 GM VIAL ONE; +DEXAMETHASONE SOD INJ 4 MG/ML VIAL ONE; +DEXTROSE 5% 500ML 500 ML IV ONE; +DIPH1TAB87 PO; -DOCU-94 PO; -DRGTP12 EXT; +ERGO500011 PO; -EZET10TA47 PO; +EpHEDrine SULFATE INJ 50 MG/ML AMP IV PRN; +EpINEphrine INJ 1MG/ML AMP 1 MG/ML AMP ONE; +FENT75DI2 TOP; +FENTANYL CITRATE INJ 50 MCG/1 ML 2 ML VIAL ONE; -FURO40TA3 PO; -GLC5 PO; +HEPA500016 INJ; +HYALURONIDASE HUMAN 150 UNIT/ML INJ ONE; +HYDR-4717 PO; +INDOCYANINE GREEN 25 MG/10 ML ONE; +INSDGI SC; +INSU100I2 SQ; -INSUINJ5 SC; +ISOS60TA25 PO; +LACTATED RINGER'S 1000ML 500 ML IV SCH; +LIDOCAINE HCL 2% 2 ML VIAL (20MG/ML) ONE; +LOPE2TAB74 PO; +LOSA1TAB PO; -LSN20 PO; +MAGN400T6 PO; +MENTOIN TOP; -METO1TAB54 PO; +MIDAZOLAM HCL 1 MG/ML 2ML VIAL ONE; +MULT-506 PO; +NEOMYCIN/POLYMYX/DEXAMETH OP OINT PER APP CHARGE ONE; -ONDA8TAB62 SL; +PHENYLEPHRINE HCL 10% OP SOLN PER DROP CHARGE ONE; +POLY335019 PO; +POVIDONE-IODINE OP SOLN (SURGERY CNTR CHARGING ONLY) ONE; +PROM25TA9 PO; +PROPARACAINE 0.5% OP SOLN PER DROP CHARGE OPR SCH; +PROPOFOL IV EMULSION 10 MG/ML 20 ML VIAL IV ONE; +SERT-234 PO; -SERT50TA PO; +SODIENE PR; -SPIR25TA PO; +TIMOLOL MALEATE 0.5% OP SOLN PER DROP CHARGE ONE; +TRIAMCINOLONE ACETONIDE OPHTH 40 MG/ML VIAL STERILE IO ONE; +VANCOMYCIN HCL 1000MG/20ML VIAL ONE; +ZINC40OI15 TOP; +[UNRECOGNIZED DRUG - OTHER] TOP
[2017-08-31] MEDS: PHENYLEPHRINE HCL 2.5% OP SOLN PER DROP CHARGE OPR SCH ×2 (09:22→09:29)
[2017-08-31] MEDS: TROPICAMIDE 1% OP SOLN PER DROP CHARGE OPR SCH ×2 (09:23→09:28)
--- NOTE | 2017-08-31 09:43 | History & Physical Bridge - SC ---
H&P Re-Evaluation Bridge Note: pt has diabetic retinopathy with vitreous hemorrhage in the right eye and is having vitrectomy right eye. I have examined the patient, reviewed the History & Physical and in the interval since the performance of the History & Physical I have noted the following changes of clinical significance: No changes noted
--- NOTE | 2017-08-31 11:13 | [facility] Operative Report ---
Operative Report Date of Service Aug 31, 2017. Operative Report PREOPERATIVE DIAGNOSIS: Proliferative diabetic retinopathy with nonclearing vitreous hemorrhage, right eye. POSTOPERATIVE DIAGNOSIS: same. PROCEDURE: 1. Pars plana vitrectomy, 23 gauge. 2. Endolaser. All to the right eye. CPT CODE: 86909 SURGEON: Luiz Freeman D.O. COMPLICATIONS: None. ESTIMATED BLOOD LOSS: None. SPECIMENS: None. ANESTHESIA: Retrobulbar block and MAC INDICATIONS FOR PROCEDURE: Surgery is indicated to decrease risk of vision loss and potentially improve vision. CONSENT: The risks, benefits and alternatives were discussed with the patient including but not limited to decreased visual acuity, failure to achieve desired results, loss of the eye, infection, pain, glaucoma, lens changes, retinal tears, retinal detachment, the need for more procedures, drooping of the eyelid, blindness, and double vision. The patient is aware of risks and consents to the surgery. Consent is signed and on the chart. OPERATION AND FINDINGS: The patient was brought to the operating room where the patient was identified by name, date, and medical record number. The surgical site was confirmed with the informed written consent. The patient was sedated by the anesthesiology team after which a 50:50 mixture of 2% lidocaine and 0.75% bupivacaine with hyaluronidase was administered in a standard retrobulbar fashion. A total of 4 ml was administered without difficulty. The patient was then prepped and draped in the usual sterile manner for retinal surgery. A wire lid speculum was placed and an Nimesh 23-gauge trocar cannula system was employed. The inferior temporal trocar cannula was first placed in an angled fashion 3.75mm posterior to the surgical limbus and the infusion cannula was inserted into this cannula after which the intravitreal position was verified prior to turning the infusion on. Two more trocar cannulas were then inserted in an angled fashion, one in the superior temporal, and one in the superior nasal quadrant both 3.75mm posterior to the surgical limbus. A light pipe and vitrector were then introduced into the eye and the BIOM wide angle viewing system was brought into place. Posterior inspection revealed dense kakhi colored nonclearing vitreous hemorrhage. This was cleared with ease with the vitrector and standard vitrectomy. There was also noted previous laser treatment. Endolaser was used to perform fill-in bang retinal photocoagulation. At this point scleral depression was performed for 360 degrees and no retinal tears or detachments were noted. The trocar cannulas were then removed and found to be water tight. The intraocular pressure was found to be within normal limits by palpation and subconjunctival injections of Kefzol and dexamethasone were administered inferiorly and superiorly. The wire lid speculum was removed. Maxitrol ointment was applied to the surface of the eye. A light patch and shield were taped over the surface of the eye and the patient left the Operating Room in stable condition having tolerated the procedure well. DISPOSITION: The patient has an appointment the following morning in the Ophthalmology Clinic. The patient is to call immediately if there are any problems overnight. I attest to the content of the Intraoperative Record and any orders documented therein. Any exceptions are noted below.
--- NOTE | 2017-08-31 11:14 | Discharge Instructions-SurgCtr ---
Discharge Instructions Date of Service Aug 31, 2017. Visit Reason for Visit: Right Eye Vitreous Hemorrhage Discharge Discharge Diagnosis / Problem: same Discharge Goals Goal(s): Improve function Activity Recommendations Activity Limitations: per Instructions/Follow-up section Anesthesia . Post Anesthesia Instructions: If you have had General Anesthesia or IV Sedation: * Do not drive today. * Resume driving when surgeon permits. * Do not make important decisions or sign legal documents today. * Call surgeon for: 1. Temperature elevations greater than 101 degrees F. 2. Uncontrollable pain. 3. Excessive bleeding. 4. Persistent nausea and vomiting. 5. Medication intolerance (nausea, vomiting or rash). * For nausea and vomiting use only clear liquids such as: tea, soda, bouillon until nausea subsides, then gradually increase diet as tolerated. * If you have any concerns or questions, call your surgeon's office. If physician is unavailable and it is an emergency, call 911 or go to the nearest emergency room. . Instructions / Follow-Up Instructions / Follow-Up * May take Tylenol if needed for discomfort. * Do NOT remove eye shield. * NO straining, heavy lifting (>15 pounds) or bending below waist. * Avoid getting water or soap directly into operative eye. * Do NOT rub eye. If you experience increasing eye pain not relieved by medication, please contact us immediately at [phone]. If you are unable to reach someone at the above number, call [phone] and ask to speak with the EYE DOCTOR EXCHANGE CLERK. Inform them that you are a Dr. Freeman patient who had recent surgery. Diet Recommendations Home Diet: resume previous diet Procedures Procedures Performed: Right Eye 23 Gauge Vitrectomy and Endolaser Pending Studies Studies pending at discharge: no Medical Emergencies . Who to Call and When: Medical Emergencies: If at any time you feel your situation is an emergency, please call 911 immediately. . Non-Emergent Contact Non-Emergency issues call your: Donkey Ride Operator . . "Provider Documentation" section prepared by Luiz Freeman. .
[2017-08-31 11:30] VITALS: TEMP 36.5
--- NOTE | 2017-08-31 11:35 | Anesthesia Progress Nt - [facility] ---
Anesthesia Post Op Note Date & Time Aug 31, 2017 at 11:35 Vital Signs Pain Intensity: 0 Vital Signs Past 12 Hours Date Time Temp Pulse Resp B/P (MAP) Pulse Ox O2 Delivery O2 Flow Rate FiO2 08/31/17 11:30 36.5 69 18 158/87 (110) 97 Room Air 08/31/17 09:11 36.6 68 24 139/75 (96) 94 Room Air Notes Mental Status: alert / awake / arousable, participated in evaluation Pt Amnestic to Procedure: Yes Nausea / Vomiting: adequately controlled Pain: adequately controlled Airway Patency, RR, SpO2: stable & adequate BP & HR: stable & adequate Hydration State: stable & adequate Anesthetic Complications: no major complications apparent
[2017-08-31 11:57] VITALS: BP 157/85; PULSE 68; O2SAT 98
== END | disposition home or self-care (01) ==
LOC: X.SURG 08:43
PROVIDERS: ATTEND Ophthalmology
DX: E11.3511 Type 2 diabetes mellitus with proliferative diabetic retinopathy with macular edema, right eye (principal); H35.30 Unspecified macular degeneration; I12.0 Hypertensive chronic kidney disease with stage 5 chronic kidney disease or end stage renal disease; N18.6 End stage renal disease; E78.5 Hyperlipidemia, unspecified; Z99.2 Dependence on renal dialysis; Z88.5 Allergy status to narcotic agent; Z88.8 Allergy status to other drugs, medicaments and biological substances

== ENCOUNTER 2018-08-28 00:01 | Observation (INO) ==
[2018-08-28] MEDS ORDERED: ACETAMINOPHEN 325 MG TAB PO PRN (00:27)
[2018-08-28] MEDS ORDERED: DEXTROSE 50% 50 ML SYRINGE IV PRN (01:57)
[2018-08-28] MEDS ORDERED: PROCHLORPERAZINE 5 MG in SYRINGE 4 ML IV PRN (01:57)
[2018-08-28] MEDS ORDERED: GLUCOSE 40% GEL 15 GM TUBE PO PRN (01:57)
[2018-08-28] MEDS ORDERED: TRAMADOL HCL 50 MG TABLET PO PRN (01:57)
[2018-08-28] MEDS ORDERED: HYDROmorphone INJ 0.5 MG/0.5 ML SYR IV PRN (01:57)
[2018-08-28] MEDS ORDERED: CARBOHYDRATES FOR HYPOGLYCEMIA PO PRN (01:57)
[2018-08-28] MEDS ORDERED: GLUCAGON FOR INJ 1 MG VIAL SQ PRN (01:57)
[2018-08-28] MEDS ORDERED: GLUCOSE 10 TABS/TUBE PO PRN (01:57)
[2018-08-28 02:21] LABS: Basophils # (auto) 0.04 K/uL (0-0.2); Basophils % (auto) 0.6 %; Eosinophils # (auto) 0.23 K/uL (0-0.5); Eosinophils % (auto) 3.6 %; Hematocrit (blood only) 30.7 % (42-52); Hemoglobin 10.1 g/dL (14.0-18.0); Immature Granulocytes # (auto) 0.01 K/uL (0.00-0.02); Immature Granulocytes % (auto) 0.2 %; Lymphocytes # (auto) 1.09 K/uL (1.2-3.4); Mean Corpuscular Hgb Conc 32.9 g/dL (32-36); Mean Platelet Volume 11.2 fL (7.4-10.4); Monocytes # (auto) 0.57 K/uL (0.11-0.59); Monocytes % (auto) 8.9 %; Neutrophils # (auto) 4.49 K/uL (1.4-6.5); Neutrophils % (auto) 69.7 %; Platelet Count 136 K/uL (130-400); RDW Coefficient of Variation 14.7 % (11.5-14.5); RDW Standard Deviation 49.8 fL (36.4-46.3); White Blood Count 6.43 K/uL (4.8-10.8)
[2018-08-28 02:35] LABS: Partial Thromboplastin Ratio 1.1; Partial Thromboplastin Time 29.3 Seconds (21.0-31.0)
[2018-08-28] MEDS: INSULIN ASPART 100 UNITS/ML 3 ML PEN SC SCH ×5 (02:37→21:01)
[2018-08-28 03:05] LABS: Albumin Globulin Ratio 0.7 (0.9-2); Albumin Level 2.6 gm/dl (3.4-5.0); BUN Creatinine Ratio 8.5 (10-20); Bilirubin,Total 0.6 mg/dl (0.2-1); Calcium 7.2 mg/dl (8.5-10.1); Creatinine Clr Calc Pharmacy 13.9 ml/min; Est GFR (African American) 11.4; Est GFR (Non-African American) 9.8; Globulin 3.9 gm/dl (2.5-4.0); Magnesium 2.2 mg/dl (1.8-2.4); Potassium 4.4 mmol/L (3.5-5.1); Total Protein 6.5 gm/dl (6.4-8.2)
[2018-08-28] MEDS ORDERED: BISACODYL 10 MG SUPP PR PRN (03:33)
[2018-08-28] MEDS ORDERED: OXYCODONE HCL IR 5 MG TAB (IMMEDIATE RELEASE) PO PRN (03:39)
--- NOTE | 2018-08-28 03:49 | History & Physical Report ---
Date of Service August 28, 2018 Assessment & Plan (1) Wound of foot: Diabetic foot wound Erythema noted around crusty wound left foot With some cellulitic extension to left lower extremity rule out DVT Rule out osteomyelitis no sepsis chronic diastolic heart failure EF 55% TTE 2016, some congestion on x-ray secondary to incomplete dialysis CAD status post CABG hypertension, elevated secondary to missed nighttime medication history of embolic CVA as per records ESRD on HD DM2, insulin requiring, suboptimal control as of recent outpatient hemoglobin A1c of 10.8 last November 2016 history right BKA chronic anemia secondary to ESRD, hemoglobin at baseline Deconditioning OBS GMF Doxycycline trial for LLE wound /cellulitis Plain x-ray, left foot ; may need additional imaging to definitively rule out osteomyelitis blood bank specialist consult RE diabetic foot wound Offload left lower extremity Outpatient Podiatry evaluation Local measures for cellulitis LE venous Dopplers rule out DVT Nephrology consult RE dialysis management Facilitate missed nighttime hydralazine medication Basal insulin, ISS BG goal 140-180, carb count coverage, patient due for hemoglobin A1C recheck DVT prophylaxis. Heparin subcu Full code History of Present Illness Chief Complaint: Need for dialysis as per records Primary Care Provider: Tae Napier History obtained from patient, family, and records. Patient is a fair historian, somewhat uncooperative during encounter. Medical history significant for chronic diastolic heart failure EF 55% TTE 2017, CAD status post CABG, hypertension, history of embolic CVA as per records, ESRD on HD, DM2, insulin requiring, mood disorder, history right BKA, chronic anemia (baseline hemoglobin of 10). Recent confinement July 2016 for possible biliary colic. As per records, last week patient noted L foot wound infection associated with nausea/vomiting symptoms. During outpatient dialysis yesterday patient looked ill and pale. Patient brought to [facility] emergency room for evaluation. Patient given IV Vancomycin and Zosyn for possible diabetic foot infection. No x-rays done as per patient. Patient transferred to [facility] for evaluation of infected foot wound and dialysis management as per records. Allergies Allergy/AdvReac Type Severity Reaction Status Date / Time morphine Allergy Mild DELIRIUM Verified 08/28/18 01:03 Wgfgwep-Vuj-Nqw Reductase Allergy Mild GI SYMPTOMS Verified 08/28/18 01:03 Inhibitor simvastatin [From Zocor] Allergy Unknown Unknown Verified 08/28/18 01:03 Home Medications Home Medications Medication Instructions Recorded Confirmed Type B complex with C#20-folic acid 1 cap PO DAILY 04/20/18 08/28/18 History [Renal Caps] acetaminophen 2 tab PO Q6H PRN 04/20/18 08/28/18 History aspirin [Aspir-Low] 81 mg PO DAILY 04/20/18 08/28/18 History bisacodyl 10 mg DC DAILY PRN 04/20/18 08/28/18 History calcium acetate 667 mg PO TID 04/20/18 08/28/18 History carvedilol 25 mg PO BID 04/20/18 08/28/18 History clopidogrel [Plavix] 75 mg PO DAILY 04/20/18 08/28/18 History insulin lispro 4 units SUBCUT UD 04/20/18 08/28/18 History isosorbide mononitrate 60 mg PO DAILY 04/20/18 08/28/18 History losartan 25 mg PO DAILY 04/20/18 08/28/18 History melatonin 3 mg PO HS PRN 04/20/18 08/28/18 History ondansetron HCl [Zofran] 4 mg PO Q8H PRN 04/20/18 08/28/18 History oxycodone 5 mg PO Q6H PRN 04/20/18 08/28/18 History brimonidine [Alphagan P] 1 drp OPHTHALMIC (EYE) BID 08/28/18 08/28/18 History hydralazine 37.5 mg PO TID 08/28/18 08/28/18 History Past Med/Surg History Social History Preferred Language: Swazi Communication Ability: Effective Inventory Transcriber Required: No Beliefs That Will Affect Care: None Current Living Situation: Alone Other Information That Helps Us Care for You: No Feels Safe at Home: Yes Smoking Status: Never smoker Hx Alcohol Use: No Hx Substance Use: No Review of Systems As per HPI, all 10 systems reviewed, all other ROS negative Physical Exam Vital Signs (Past 24 Hours): Last Vital Signs Temp 37.4 C 08/28/18 00:14 Resp 20 08/28/18 00:14 BP 152/85 H 08/28/18 00:14 Pulse Ox 95 08/28/18 00:14 Physical Exam: GENERAL: Slightly irate , no respiratory distress, lying on the right lateral decubitus position SKIN: Pallor , warm HEENT: Pale palpebral conjunctivae, no ptosis, dry buccal mucosa NECK : Supple, no tenderness CHEST : CTA, no tenderness HEART : RRR, no obvious murmurs ABDOMEN: Some distention, nontender EXTREMITIES : BKA stump right; crusty dry wound left great toe area with surrounding erythema extending to the foot dorsum and anterior LLE, minimal tenderness, no drainage noted NEUROLOGIC : Coherent, no facial asymmetry, no other gross focality Results & Data Laboratory Results Laboratory Results WBC 6.43 K/uL (4.8-10.8) 08/28/18 02:09 RBC 3.30 M/uL (4.7-6.1) L 08/28/18 02:09 Hgb 10.1 g/dL (14.0-18.0) L 08/28/18 02:09 Hct 30.7 % (42-52) L 08/28/18 02:09 MCV 93.0 fL (80-100) 08/28/18 02:09 MCH 30.6 pg (25-34) 08/28/18 02:09 MCHC 32.9 g/dL (32-36) 08/28/18 02:09 RDW Std Deviation 49.8 fL (36.4-46.3) H 08/28/18 02:09 RDW Coeff of Yessi 14.7 % (11.5-14.5) H 08/28/18 02:09 Plt Count 136 K/uL (130-400) 08/28/18 02:09 MPV 11.2 fL (7.4-10.4) H 08/28/18 02:09 Immature Gran % (Auto) 0.2 % 08/28/18 02:09 Neut % (Auto) 69.7 % 08/28/18 02:09 Lymph % (Auto) 17.0 % 08/28/18 02:09 [place] % (Auto) 8.9 % 08/28/18 02:09 Eos % (Auto) 3.6 % 08/28/18 02:09 Baso % (Auto) 0.6 % 08/28/18 02:09 Immature Gran # (Auto) 0.01 K/uL (0.00-0.02) 08/28/18 02:09 Neut # (Auto) 4.49 K/uL (1.4-6.5) 08/28/18 02:09 Lymph # (Auto) 1.09 K/uL (1.2-3.4) L 08/28/18 02:09 [place] # (Auto) 0.57 K/uL (0.11-0.59) 08/28/18 02:09 Eos # (Auto) 0.23 K/uL (0-0.5) 08/28/18 02:09 Baso # (Auto) 0.04 K/uL (0-0.2) 08/28/18 02:09 APTT 29.3 Seconds (21.0-31.0) 08/28/18 02:09 PTT Ratio 1.1 08/28/18 02:09 Sodium 138 mmol/L (136-145) 08/28/18 02:09 Potassium 4.4 mmol/L (3.5-5.1) 08/28/18 02:09 Chloride 104 mmol/L (98-107) 08/28/18 02:09 Carbon Dioxide 26 mmol/L (21-32) 08/28/18 02:09 Anion Gap 8.0 (3-11) 08/28/18 02:09 BUN 52 mg/dl (7-18) H 08/28/18 02:09 Creatinine 6.20 mg/dl (0.6-1.4) H* 08/28/18 02:09 Est Cr Clr Drug Dosing 13.9 ml/min 08/28/18 02:09 Est GFR ( Amer) 11.4 08/28/18 02:09 Est GFR (Non-Af Amer) 9.8 08/28/18 02:09 BUN/Creatinine Ratio 8.5 (10-20) L 08/28/18 02:09 Glucose 120 mg/dl (70-99) H 08/28/18 02:09 POC Glucose 113 (70-99) H 08/28/18 02:32 Calcium 7.2 mg/dl (8.5-10.1) L 08/28/18 02:09 Magnesium 2.2 mg/dl (1.8-2.4) 08/28/18 02:09 Total Bilirubin 0.6 mg/dl (0.2-1) 08/28/18 02:09 AST 21 U/L (15-37) 08/28/18 02:09 ALT 28 U/L (12-78) 08/28/18 02:09 Alkaline Phosphatase 173 U/L (45-117) H 08/28/18 02:09 Total Protein 6.5 gm/dl (6.4-8.2) 08/28/18 02:09 Albumin 2.6 gm/dl (3.4-5.0) L 08/28/18 02:09 Globulin 3.9 gm/dl (2.5-4.0) 08/28/18 02:09 Albumin/Globulin Ratio 0.7 (0.9-2) L 08/28/18 02:09 Lipase 60 U/L (73-393) L 08/28/18 02:09 Diagnostic Findings Chest x-ray as per my interpretation cardiomegaly, minimal congestion
[2018-08-28] MEDS ORDERED: DOXYCYCLINE HYCLATE 100 MG in DEXTROSE 5% 100 ML IV ONE (04:00)
[2018-08-28] MEDS: HEPARIN SOD 5,000 UNIT/0.5 ML VIAL SQ SCH ×3 (06:40→21:00)
[2018-08-28 07:06] LABS: Estimated Average Glucose 180 mg/dl; Hemoglobin A1C 7.9 % (4.5-5.6)
--- NOTE | 2018-08-28 08:02 | XRay Report ---
SINGLE VIEW CHEST CLINICAL HISTORY: Nausea and vomiting. FINDINGS: An AP, portable, upright chest radiograph is compared to study dated 08/04/2016. The examina tion is degraded by portable technique and patient rotation. The patient is status post midline dee otomy. An electronic device projects over the left chest wall. The heart is enlarged and there is ath erosclerotic calcification of the thoracic aorta. There is mild pulmonary vascular congestion. Bibasi lar atelectasis is observed. No large pleural effusion or pneumothorax is seen. The skeletal structur es appear osteopenic. The bony thorax is grossly intact. Cholecystectomy clips are noted in the right upper quadrant. IMPRESSION: 1. Cardiomegaly with mild pulmonary vascular congestion. 2. No airspace consolidation or large pleural effusion is identified. Electronically signed by: Erwin Barker M.D. 08/28/2018 8:00 AM
[2018-08-28] MEDS ORDERED: prednisoLONE acetate 1% OP SUSP 5 ML BTL OPR SCH (09:00)
--- NOTE | 2018-08-28 09:17 | XRay Report ---
LEFT FOOT 3 VIEWS CLINICAL HISTORY: Left foot swelling. FINDINGS: 3 views of the left foot are obtained. No prior studies are available for comparison at the time of dictation. The skeletal structures are heterogeneously osteopenic. No fracture is seen. Ther e are small dorsal and plantar calcaneal enthesophytes. A high arch is noted. Degenerative spurring i s seen along the dorsal aspect of the tarsal bones. Mild osteoarthritic change is seen at the first m etatarsophalangeal joint, as well as at the tarsometatarsal joints. Mild soft tissue edema is present in the foot. There is advanced atherosclerotic calcification of the regional arteries. IMPRESSION: 1. Mild soft tissue swelling with no acute bony abnormality identified. 2. Osteopenia, degenerative change, and small heel spurs as above. Electronically signed by: Erwin Barker M.D. 08/28/2018 9:15 AM
[2018-08-28] MEDS: CALCIUM ACETATE 667 MG CAP PO SCH ×4 (09:50→17:42)
[2018-08-28 10:03] LABS: INR 1.2 (0.9-1.1)
--- NOTE | 2018-08-28 10:31 | Nephrology Consultation ---
Date of Consultation August 28, 2018 Assessment & Plan (1) ESRD (end stage renal disease) on dialysis: -- Volume status and electrolyte balance are acceptable. No acute indication for HD today (2) Cellulitis: -- On Doxycyline therapy. No dosage adjustment needed -- Await culture results (3) IDDM (insulin dependent diabetes mellitus): -- On insulin therapy History of Present Illness Reason for Consultation: ESRD on HD Attending Physician: Terrance Mcrae MD History of Present Illness Mr. Cotton is a 47 year old white male who is seen at the request of Dr. Patel to provide inpatient HD and assist w/ medical management. Patient is a poor historian. Medical records were reviewed this am and are summarized as follows: Mr. Cotton was diagnosed w/ AODM at 21 years of age. He has had poor hypoglycemic control and advanced to ESRD 06/25. Initially he was cared for by Dr. Lieberman but recently transferred his care to Dr. Mobley (HD MWF [facility] 3 hr 30 min, 2K 2Ca, F-180 NR, Qb 350, EDW 72kg). AVF was created by Dr. Mabry at [facility] and later transposed. Patient's medical history is also significant for osteomyelitis s/p R BKA, CHF, HTN, anemia, CVA106/30, and chronic low back pain requiring chronic opiate therapy. Patient reports an abbreviated HD treatment Thursday due to nausea. He was found to have cellulitis of his LLE and transported from [facility] to [facility] for ongoing medical care and inpatient HD. L foot x-ray shows extensive soft tissue swelling. Patient is now on IV Doxycycline therapy Allergies Allergy/AdvReac Type Severity Reaction Status Date / Time morphine Allergy Mild DELIRIUM Verified 08/28/18 01:03 Uxcvcsb-Kvo-Ogk Reductase Allergy Mild GI SYMPTOMS Verified 08/28/18 01:03 Inhibitor simvastatin [From Zocor] Allergy Unknown Unknown Verified 08/28/18 01:03 Home Medications Home Medications Medication Instructions Recorded Confirmed Type B complex with C#20-folic acid 1 cap PO DAILY 04/20/18 08/28/18 History [Renal Caps] acetaminophen 2 tab PO Q6H PRN 04/20/18 08/28/18 History aspirin [Aspir-Low] 81 mg PO DAILY 04/20/18 08/28/18 History bisacodyl 10 mg DE DAILY PRN 04/20/18 08/28/18 History calcium acetate 667 mg PO TID 04/20/18 08/28/18 History carvedilol 25 mg PO BID 04/20/18 08/28/18 History clopidogrel [Plavix] 75 mg PO DAILY 04/20/18 08/28/18 History insulin lispro 4 units SUBCUT UD 04/20/18 08/28/18 History isosorbide mononitrate 60 mg PO DAILY 04/20/18 08/28/18 History losartan 25 mg PO DAILY 04/20/18 08/28/18 History melatonin 3 mg PO HS PRN 04/20/18 08/28/18 History ondansetron HCl [Zofran] 4 mg PO Q8H PRN 04/20/18 08/28/18 History oxycodone 5 mg PO Q6H PRN 04/20/18 08/28/18 History brimonidine [Alphagan P] 1 drp OPHTHALMIC (EYE) BID 08/28/18 08/28/18 History hydralazine 37.5 mg PO TID 08/28/18 08/28/18 History Patient History Social History Preferred Language: Namibian Communication Ability: Effective Sales Attendant Required: No Beliefs That Will Affect Care: None Current Living Situation: Alone Other Information That Helps Us Care for You: No Feels Safe at Home: Yes Smoking Status: Never smoker Hx Alcohol Use: No Hx Substance Use: No Review of Systems Patient unwilling to participate in ROS Physical Exam Vital Signs (Past 24 Hours): Last Vital Signs Temp 36.4 C L 08/28/18 07:00 Pulse 77 08/28/18 07:00 Resp 18 08/28/18 07:00 BP 145/80 H 08/28/18 07:00 Pulse Ox 97 08/28/18 07:00 Eyes: PERRL, conjunctivae normal, anicteric sclerae Neck: trachea midline, no thyromegaly Respiratory: normal respiratory effort, lungs clear to auscultation Cardiovascular: Rate/Rhythm: regular rate and regular rhythm Extremities: + edema (1+ L foot swelling) and + AV fistula (+ bruit) Gastrointestinal (Abdomen): normal bowel sounds, soft, nontender, no hepatosplenomegaly Skin: erythema involving the dorsum of L foot and extending midway up pretibial area Results & Data Laboratory Results Laboratory Tests 08/28/18 08/28/18 02:09 02:09 WBC 6.43 Hgb 10.1 L Hct 30.7 L Plt Count 136 Sodium 138 Potassium 4.4 Chloride 104 Carbon Dioxide 26 BUN 52 H Creatinine 6.20 H* Glucose 120 H Calcium 7.2 L Albumin 2.6 L
--- NOTE | 2018-08-28 11:13 | Ultrasound Report ---
ULTRASOUND LEFT LOWER EXTREMITY VENOUS CLINICAL HISTORY: Left leg swelling. COMPARISON STUDY: No priors. TECHNIQUE: Real-time, grayscale, and color Doppler sonography of the deep veins of the left lower ext remity was performed from the inguinal crease to the calf. Compression and augmentation were utilized . FINDINGS: There is no sonographic evidence of deep venous thrombosis identified in the left lower ext remity. The common femoral, superficial femoral, and popliteal veins are patent and normally compress ible. The greater saphenous vein and the profunda femoris vein at the junction with the common femora l vein are clear. The visualized calf veins are patent. IMPRESSION: There is no sonographic evidence of deep venous thrombosis identified in the left lower e xtremity. Electronically signed by: Erwin Barker M.D. 08/28/2018 11:11 AM
[2018-08-28] MEDS: ISOSORBIDE MONO EXTENDED REL 60 MG TABCR PO SCH (12:43)
[2018-08-28] MEDS: CLOPIDOGREL BISULFATE 75 MG TAB PO SCH (12:44)
[2018-08-28] MEDS: ASPIRIN 81 MG ECTAB PO SCH (12:44)
[2018-08-28] MEDS: NEPHROCAPS PO SCH ×2 (12:44→13:24)
[2018-08-28] MEDS: BRIMONIDINE TARTRATE-P 0.15% 5 ML BTL OPR SCH ×2 (12:45→21:00)
[2018-08-28] MEDS: INSULIN GLARGINE SOLOSTAR 100 UNITS/ML 3 ML PEN SC SCH (12:51)
[2018-08-28] MEDS: DOXYCYCLINE HYCLATE 100 MG CAP PO SCH (20:58)
[2018-08-29] MEDS: HEPARIN SOD 5,000 UNIT/0.5 ML VIAL SQ SCH ×2 (05:35→12:56)
[2018-08-29 08:28] VITALS: BP 170/91; PULSE 73; TEMP 98.4; O2SAT 98
[2018-08-29] MEDS: INSULIN ASPART 100 UNITS/ML 3 ML PEN SC SCH ×2 (08:44→12:56)
[2018-08-29] MEDS: INSULIN GLARGINE SOLOSTAR 100 UNITS/ML 3 ML PEN SC SCH (08:45)
[2018-08-29] MEDS: CALCIUM ACETATE 667 MG CAP PO SCH ×2 (08:47→12:11)
[2018-08-29] MEDS: ASPIRIN 81 MG ECTAB PO SCH (08:47)
[2018-08-29] MEDS: BRIMONIDINE TARTRATE-P 0.15% 5 ML BTL OPR SCH (08:47)
[2018-08-29] MEDS: DOXYCYCLINE HYCLATE 100 MG CAP PO SCH (08:48)
[2018-08-29] MEDS: NEPHROCAPS PO SCH (08:48)
[2018-08-29] MEDS: ISOSORBIDE MONO EXTENDED REL 60 MG TABCR PO SCH (08:48)
[2018-08-29] MEDS: CLOPIDOGREL BISULFATE 75 MG TAB PO SCH (08:48)
[2018-08-29 09:41] LABS: Hematocrit (blood only) 31.3 % (42-52); Hemoglobin 10.1 g/dL (14.0-18.0); Mean Corpuscular Hgb Conc 32.3 g/dL (32-36); Mean Corpuscular Volume 93.4 fL (80-100); Platelet Count 161 K/uL (130-400); RDW Coefficient of Variation 14.6 % (11.5-14.5); RDW Standard Deviation 49.6 fL (36.4-46.3); Red Blood Count 3.35 M/uL (4.7-6.1); White Blood Count 6.05 K/uL (4.8-10.8)
--- NOTE | 2018-08-29 10:02 | Nephrology Progress Note ---
Date of Service August 29, 2018 Assessment & Plan (1) ESRD (end stage renal disease) on dialysis: -- Volume status and electrolyte balance are acceptable. Awaiting PRP this am. No acute indication for HD today -- Will schedule next HD for am -- If patient discharge is anticipated please have him resume his regular MWF outpatient HD schedule at [facility] (2) Cellulitis: -- On Doxycyline therapy. No dosage adjustment needed -- Await culture results (3) IDDM (insulin dependent diabetes mellitus): -- On insulin therapy Subjective Mr. Cotton was seen & examined in his hospital room this morning. He reports that his cellulitis is improved. He is anxious to return home. Respiratory: no cough and no dyspnea Cardiovascular: no chest pain and no dyspnea Gastrointestinal: no abdominal pain and no vomiting Physical Exam Vital Signs (Past 24 Hours): Last Vital Signs Temp 36.9 C 08/29/18 07:30 Pulse 73 08/29/18 07:30 Resp 18 08/29/18 07:30 BP 170/91 H 08/29/18 07:30 Pulse Ox 98 08/29/18 07:30 Eyes: PERRL, conjunctivae normal, anicteric sclerae Neck: trachea midline, no thyromegaly Respiratory: normal respiratory effort, lungs clear to auscultation Cardiovascular: Rate/Rhythm: regular rate and regular rhythm Extremities: + edema (1+ L foot swelling) and + AV fistula (+ bruit) Gastrointestinal (Abdomen): normal bowel sounds, soft, nontender, no hepatosplenomegaly Skin: ulcerative lesion at base of L great toe with less surrounding erythema Results & Data Laboratory Results Laboratory Tests 08/29/18 09:21 WBC 6.05 Hgb 10.1 L Hct 31.3 L Plt Count 161 PRP is pending
[2018-08-29 10:18] LABS: BUN Creatinine Ratio 8.4 (10-20); Calcium 7.3 mg/dl (8.5-10.1); Creatinine Clr Calc Pharmacy 11.9 ml/min; Est GFR (African American) 9.4; Est GFR (Non-African American) 8.1; Potassium 4.6 mmol/L (3.5-5.1)
--- NOTE | 2018-08-29 16:16 | Hospitalist Progress Note ---
Date of Service August 29, 2018 Assessment & Plan (1) Wound of foot: Diabetic foot wound Cellulitis Foot Xray showed mild soft tissue swelling with no acute bony abnormality identified. Doppler of LLE showed no evidence of DVT IV doxycycline changed to PO Wound care consult pending Pt refused to stay tonight to be seen by wound care nurse in morning He agreed to arrange for outpatient appointment with wound care clinic Will continue course of doxycycline ESRD On HD on MWF Pt was advised that next HD is schedule for tomorrow If decides to leave today, he will resume his regular HD tomorrow at [facility] Nephrology on board Stable chronic diastolic heart failure Last ECho with EF 55% TTE 2016 Stable CAD S/P CABG Continue aspirin, plavix Stable Hypertension Possible due to hospital setting since pt is annoyed and wants to discharge today Continue Isosorbide mononitrate and hydralazine Continue monitor BP DM type 2 Most recent Hba1c 7.9 (08/28/18) Continue home dose med DVT px on heparin subq CODE STATUS Full code Disposition Will discharge home today since pt does not want to stay for another night Subjective Pt was seen and examined Sitting at the egde of the bed corey He refused to take his morning meds this morning Attempt to greet him by shaking his hand, he did not reach for it Pt said that he is leaving today He does want to spent another night to be seen by wound care tomorrow He said that he would rather see them as an outpatient Erythema sligthly improves He understands that he has to go for HD tomorrow Denies any chest pain, palpitation, dizziness and SOB Physical Exam Vital Signs (Past 24 Hours): Last Vital Signs Temp 36.9 C 08/29/18 15:07 Pulse 73 08/29/18 15:07 Resp 18 08/29/18 15:07 BP 170/91 H 08/29/18 15:07 Pulse Ox 98 08/29/18 15:07 Physical Exam: General- No acute distress Head- atraumatic Eyes- PERRL, EOMI, ENT- oropharynx clear Neck- supple, no JVD Lungs- clear to auscultation Heart- regular rhythm; no murmur Abdomen- normal bowel sounds, soft, nontender, erythema with crusty area on L big toe, +Right BKA Extremities- no calf tenderness, +L foot edema, Neuro- alert, oriented x 3; PERRL, EOMI; no facial palsy; no dysarthria Skin- warm & dry
[2018-08-30] MEDS ORDERED: EPOETIN ALFA 4,000 UNIT/ML VIAL IV SCH (07:00)
[2018-08-30] MEDS ORDERED: HEPARIN SOD (PORCINE) 1000 UNIT/ML 10 ML VIAL IV ONE (07:00)
[2018-08-30] MEDS ORDERED: SODIUM CHLORIDE 0.9% 1000ML 1,000 ML IV PRN (07:00)
[2018-08-30] MEDS ORDERED: HEPARIN SOD (PORCINE) 1000 UNIT/ML 10 ML VIAL IV SCH (07:00)
--- NOTE | 2018-09-12 08:53 | Discharge Summary ---
Date of Service August 29, 2018 Admission HPI Per Admitting Provider History obtained from patient, family, and records. Patient is a fair historian, somewhat uncooperative during encounter. Medical history significant for chronic diastolic heart failure EF 55% TTE 2016, CAD status post CABG, hypertension, history of embolic CVA as per records, ESRD on HD, DM2, insulin requiring, mood disorder, history right BKA, chronic anemia (baseline hemoglobin of 10). Recent confinement July 2016 for possible biliary colic. As per records, last week patient noted L foot wound infection associated with nausea/vomiting symptoms. During outpatient dialysis yesterday patient looked ill and pale. Patient brought to [facility] emergency room for evaluation. Patient given IV Vancomycin and Zosyn for possible diabetic foot infection. No x-rays done as per patient. Patient transferred to [facility] for evaluation of infected foot wound and dialysis management as per records. Admission Exam Per Admitting Provider GENERAL: Slightly irate , no respiratory distress, lying on the right lateral decubitus position SKIN: Pallor , warm HEENT: Pale palpebral conjunctivae, no ptosis, dry buccal mucosa NECK : Supple, no tenderness CHEST : CTA, no tenderness HEART : RRR, no obvious murmurs ABDOMEN: Some distention, nontender EXTREMITIES : BKA stump right; crusty dry wound left great toe area with surroun ding erythema extending to the foot dorsum and anterior LLE, minimal tenderness, no drainage noted NEUROLOGIC : Coherent, no facial asymmetry, no other gross focality Principal Diagnosis LLE Cellulitis Diabetic wound ulcer ESRD on HD Discharge Exam General- No acute distress Head- atraumatic Eyes- PERRL, EOMI, ENT- oropharynx clear Neck- supple, no JVD Lungs- clear to auscultation Heart- regular rhythm; no murmur Abdomen- normal bowel sounds, soft, nontender, erythema with crusty area on L big toe, +Right BKA Extremities- no calf tenderness, +L foot edema, Neuro- alert, oriented x 3; PERRL, EOMI; no facial palsy; no dysarthria Skin- warm & dry Discharge Data Allergies Allergy/AdvReac Type Severity Reaction Status Date / Time morphine Allergy Mild DELIRIUM Verified 08/28/18 01:03 Usvogrr-Asb-Ofd Reductase Allergy Mild GI SYMPTOMS Verified 08/28/18 01:03 Inhibitor simvastatin [From Zocor] Allergy Unknown Unknown Verified 08/28/18 01:03 Consultations 08/28/18 03:31 Consult Nephrology Routine 08/28/18 03:34 Consult Wound Care Provider Routine Ordered Studies 08/28/18 03:32 US venous doppler LE LT Urgent ULTRASOUND LEFT LOWER EXTREMITY VENOUS CLINICAL HISTORY: Left leg swelling. COMPARISON STUDY: No priors. TECHNIQUE: Real-time, grayscale, and color Doppler sonography of the deep veins of the left lower extremity was performed from the inguinal crease to the calf. Compression and augmentation were utilized. FINDINGS: There is no sonographic evidence of deep venous thrombosis identified in the left lower extremity. The common femoral, superficial femoral, and popliteal veins are patent and normally compressible. The greater saphenous vein and the profunda femoris vein at the junction with the common femoral vein are clear. The visualized calf veins are patent. IMPRESSION: There is no sonographic evidence of deep venous thrombosis identif ied in the left lower extremity. Electronically signed by: Erwin Barker M.D. 08/28/2018 11:11 AM Dictated: 08/28/18 1111 Transcribed: 08/28/18 1111 SINGLE VIEW CHEST CLINICAL HISTORY: Nausea and vomiting. FINDINGS: An AP, portable, upright chest radiograph is compared to study dated 08/04/2016. The examination is degraded by portable technique and patient rotation. The patient is status post midline sternotomy. An electronic device projects over the left chest wall. The heart is enlarged and there is atherosclerotic calcification of the thoracic aorta. There is mild pulmonary vascular congestion. Bibasilar atelectasis is observed. No large pleural effusion or pneumothorax is seen. The skeletal structures appear osteopenic. The bony thorax is grossly intact. Cholecystectomy clips are noted in the right upper quadrant. IMPRESSION: 1. Cardiomegaly with mild pulmonary vascular congestion. 2. No airspace consolidation or large pleural effusion is identified. Electronically signed by: Erwin Barker M.D. 08/28/2018 8:00 AM Dictated: 08/28/18 0759 Transcribed: 08/28/18 0759 LEFT FOOT 3 VIEWS CLINICAL HISTORY: Left foot swelling. FINDINGS: 3 views of the left foot are obtained. No prior studies are available for comparison at the time of dictation. The skeletal structures are heterogeneously osteopenic. No fracture is seen. There are small dorsal and plantar calcaneal enthesophytes. A high arch is noted. Degenerative spurring is seen along the dorsal aspect of the tarsal bones. Mild osteoarthritic change is seen at the first metatarsophalangeal joint, as well as at the tarsometatarsal joints. Mild soft tissue edema is present in the foot. There is advanced atherosclerotic calcification of the regional arteries. IMPRESSION: 1. Mild soft tissue swelling with no acute bony abnormality identified. 2. Osteopenia, degenerative change, and small heel spurs as above. Electronically signed by: Erwin Barker M.D. 08/28/2018 9:15 AM Dictated: 08/28/18913 Transcribed: 08/28/18913 Hospital Course (1) Wound of foot: Diabetic foot wound Cellulitis Foot Xray showed mild soft tissue swelling with no acute bony abnormality identified. Doppler of LLE showed no evidence of DVT IV doxycycline changed to PO Wound care consult pending Pt refused to stay tonight to be seen by wound care nurse in morning He agreed to arrange for outpatient appointment with wound care clinic Will continue course of doxycycline ESRD On HD on MWF Pt was advised that next HD is schedule for tomorrow If decides to leave today, he will resume his regular HD tomorrow at [facility] Nephrology on board Stable chronic diastolic heart failure Last [facility]ho with EF 55% TTE 2016 Stable CAD S/P CABG Continue aspirin, plavix Stable Hypertension Possible due to hospital setting since pt is annoyed and wants to discharge today Continue Isosorbide mononitrate and hydralazine Continue monitor BP DM type 2 Most recent Hba1c 7.9 (08/28/18) Continue home dose med DVT px on heparin subq CODE STATUS Full code Disposition Will discharge home today since pt does not want to stay for another night Total Time Total Time Spent Total Time Spent (In Minutes): 35 minutes Total Time Includes: Examination of the Patient, Discharge Planning, Medication Reconciliation, Communication With Other Providers and Other Discharge Plan Discharge Items Patient Disposition: Home - Self-Care Reason For Visit: CELLULITIS Discharge Diagnosis: LLE Cellulitis Diabetic wound ulcer ESRD on HD Discharge Goals: Decrease discomfort Activity: Resume your previous activity Activity Comment: As tolerated Non-emergency contact: Primary Care Provider Call non-emergency contact if: you have any medication questions and your temperature is above 101 Follow-up/Referrals: Tae Napier M.D. [Primary Care Provider] - Diet: Dialysis Renal and Heart Healthy Addtl Provider Instructions: Please call to schedule a Follow up with your primary care provider within 1 week You will need to follow up with wound care clinic Next dialysis tomorrow morning at [facility] Continue course of antibiotic with doxycycline Fall precaution Monitor blood pressure Monitor your blood sugar Prescriptions: Continued carvedilol 25 mg Tablet 25 mg PO BID RF: 0 acetaminophen 325 mg Tablet 2 tab PO Q6H PRN (Reason: Pain) RF: 0 ondansetron HCl [Zofran] 4 mg Tablet 4 mg PO Q8H PRN (Reason: N/V) RF: 0 clopidogrel [Plavix] 75 mg Tablet 75 mg PO DAILY RF: 0 aspirin [Aspir-Low] 81 mg Tablet,Delayed Release (Dr/Ec) 81 mg PO DAILY RF: 0 isosorbide mononitrate 60 mg Tablet Extended Release 24 Hr 60 mg PO DAILY RF: 0 bisacodyl 10 mg Suppository 10 mg TX DAILY PRN (Reason: Constipation) RF: 0 losartan 25 mg Tablet 25 mg PO DAILY RF: 0 oxycodone 5 mg Capsule 5 mg PO Q6H PRN (Reason: Pain) RF: 0 Renal Caps 1 mg Capsule 1 cap PO DAILY RF: 0 insulin lispro 100 unit/mL Cartridge 4 units SUBCUT UD RF: 0 brimonidine [Alphagan P] 0.15 % Drops 1 drp OPR BID RF: 0 hydralazine 25 mg Tablet 37.5 mg PO TID RF: 0 No Action doxycycline monohydrate 100 mg Capsule 100 mg PO BID RF: 0 melatonin 10 mg Tablet 10 mg PO HS PRN (Reason: Insomnia) RF: 0 Lantus Solostar U-100 Insulin 100 unit/mL (3 mL) Insulin Pen 10 unit SUBCUT HS RF: 0 pantoprazole 40 mg tablet,delayed release (DR/EC) 40 mg PO DAILY Qty: 30 RF: 2 Stand-Alone Forms: [facility] Discharge Orders: Discharge Order (Routine); Ordered 08/29/18 Ordered By: Terrance Mcrae Admission Data Admit Date/Time: 08/28/18 00:01 Attending Provider: Terrance Mcrae Admit Provider: [place] Primary Care Provider: Tae Napier Other Providers: Anshu Zee ; eYhuda Mccurdy ; Celsa Quispe ; Sakshi Bermudez ; Rajat Mobley ; Nima Henderson ; Litzy Nicholas ; Aurelia Irvin ; Floyd Escobar ; Kennedi Rothman ; Huy Coello Service: Medical Other Interventions: Discharge Summary Assessment (RN) Last Done: 08/29/18 15:07 DC Date/Time DO NOT enter until pt leaves facility: 08/29/18 17:14
== END 2018-08-29 17:14 | disposition home or self-care (01) ==
LOC: INTOOBSV 00:01 → SUATTDRO 00:01 → 4E 00:01